=== PATIENT | female | born 1940 | race Caucasian/White ===

== ENCOUNTER → 2016-07-09 | Outpatient (CLI) | payer BC ==
[~2016-07-09] MED LIST: ASCA500 PO; CALC500C70 PO; CETI10TA84 PO; CHOL2000 PO; HYDR-4331 PO; HYDR-4380; HYDR-5688 PO; HYZ/10015 PO; LEVO75TA5 PO; LOSA1TAB38 PO; MULT-190 PO; MULT-506 PO; NORT10CA2 PO; POLY150C12 PO; POTATAB2 PO; PRLSR20 PO; VITAMIN B12 IM; [UNRECOGNIZED DRUG - CODE] EXT; [UNRECOGNIZED DRUG - CODE] SC; [UNRECOGNIZED DRUG - OTHER] PO
[2016-07-09 17:42] LABS: HEMATOCRIT 31.7 % (37-47)
[2016-07-09 18:01] LABS: TOTAL IRON BINDING CAPACITY 242 mcg/dl (250-450)
--- NOTE | 2016-07-14 11:00 | CODING QUERY MEDICAL NECESSITY ---
SUPPORTING DIAGNOSIS NEEDED A supporting diagnosis is required for the test/procedure performed on this patient in order for us to be reimbursed by the patient's insurance. Please provide a supporting diagnosis for the following test/procedure listed below next to the test name along with your signature. *If there is no additional diagnosis for this patient that would support the following test/procedure please document that below next to the test/procedure. Test(s)/Procedure(s) that require a supporting diagnosis: DOS 07/09 * Vitamin B12 DIAGNOSIS: Provider Signature: Date: Thank you Ashia Hanna Health Information Management Once completed, please kindly fax back to [phone] For questions please call [phone]
== END | disposition home or self-care (01) ==
LOC: C.LAB1850 16:37
PROVIDERS: ATTEND Internal Medicine
DX: K22.70 Barrett's esophagus without dysplasia (principal); D64.9 Anemia, unspecified

== ENCOUNTER → 2016-08-26 | Day surgery (SDC) | payer BC ==
[2016-08-19 11:02] VITALS: Ht 160 cm; Wt 74.1 kg
[~2016-08-26] VITALS: Ht 160 cm; Wt 74.1 kg
[~2016-08-26] MED LIST changes: +ATROPINE SULFATE 0.1 MG/ML 5ML SYR IV PRN; +BACITRACIN OINT 15 GM TUBE ONE; +BUPIVACAINE 0.5 % 5 MG/1 ML PF 10ML VIAL ONE; +CEFAZOLIN 1000MG/55 ML D5W IV SCH; +DEXAMETHASONE SOD INJ 4 MG/ML VIAL ONE; +EpHEDrine SULFATE INJ 50 MG/ML AMP IV PRN; +FENTANYL CITRATE INJ 50 MCG/1 ML 2 ML VIAL ONE; -HYDR-4331 PO; -HYDR-4380; -HYDR-5688 PO; +LACTATED RINGER'S 1000ML 1,000 ML IV SCH; +LIDOCAINE HCL 2% 2 ML VIAL (20MG/ML) ONE; +LIDOCAINE HCL 2% LOCAL 20 ML VIAL ONE; +MIDAZOLAM HCL 1 MG/ML 2ML VIAL ONE; +ONDANSETRON INJ 2 MG/ML 2 ML VIAL IV ONE; +ONDANSETRON INJ 2 MG/ML 2 ML VIAL ONE; +PROPOFOL IV EMULSION 10 MG/ML 20 ML VIAL IV ONE; +SODIUM CHLORIDE 0.9% 1000ML 1,000 ML IV SCH
--- NOTE | 2016-08-26 06:55 | History & Physical Bridge - SC ---
H&P Re-Evaluation Bridge Note: I have examined the patient, reviewed the History & Physical and in the interval since the performance of the History & Physical I have noted the following changes of clinical significance: No changes noted
--- NOTE | 2016-08-26 08:11 | [facility] Post Operative Brief Note ---
Immediate Operative Summary Operative Date Aug 26, 2016. Pre-Operative Diagnosis Right Carpal Tunnel Syndrome Post-Operative Diagnosis Same Procedure(s) Performed Right Carpal Tunnel Release Surgeon Dr. Smith Phototypesetter Operator Surgeon(s) Teodora Rebolledo PA-C Estimated Blood Loss Minimal Findings Right Carpal Tunnel Syndrome Specimens None Anesthesia Local with IV Sedation Complication(s) None Disposition Recovery Room / PACU
--- NOTE | 2016-08-26 08:11 | Discharge Instructions-SurgCtr ---
Discharge Instructions Date of Service Aug 26, 2016. Visit Reason for Visit: Right Carpal Tunnel Syndrome Discharge Discharge Diagnosis / Problem: right carpal tunnel syndrome Discharge Goals Goal(s): Decrease discomfort, Improve function, Therapeutic intervention Activity Recommendations Activity Limitations: per Instructions/Follow-up section limited use of right hand Anesthesia . Post Anesthesia Instructions: If you have had General Anesthesia or IV Sedation: * Do not drive today. * Resume driving when surgeon permits. * Do not make important decisions or sign legal documents today. * Call surgeon for: 1. Temperature elevations greater than 101 degrees F. 2. Uncontrollable pain. 3. Excessive bleeding. 4. Persistent nausea and vomiting. 5. Medication intolerance (nausea, vomiting or rash). * For nausea and vomiting use only clear liquids such as: tea, soda, bouillon until nausea subsides, then gradually increase diet as tolerated. * If you have any concerns or questions, call your surgeon's office. If physician is unavailable and it is an emergency, call 911 or go to the nearest emergency room. . Instructions / Follow-Up Instructions / Follow-Up MEDICATIONS: * Resume previous medications unless instructed otherwise by your surgeon. * Always take pain medication on a full stomach or with food to avoid upset stomach. * Do not drink alcohol or drive while taking narcotics. * Ibuprofen or Tylenol may be taken if narcotic not needed. SPECIAL CARE INSTRUCTIONS: __ None __ Keep extremity elevated and iced x 48 hours; apply ice 20-30 minutes 8-10 times/day. May remove at night. __ Sling __24 hrs/day __ Remove at night __ Shoulder Immobilizer __ 24 hrs/day __ Remove at night _x_ Dressing _x_ Maintain until seen in office, may shower with plastic over site __ Remove dressings in 24-48 hours and then may shower __ Cover incisions with band-aids after showering __ Do not remove steri-strips Call physician if chills or temperature rises above 102 degrees or pain unrelieved by prescribed pain medications at . follow up in 2 weeks . Diet Recommendations Home Diet: resume previous diet Procedures Procedures Performed: Right Carpal Tunnel Release Pending Studies Studies pending at discharge: no Medical Emergencies . Who to Call and When: Medical Emergencies: If at any time you feel your situation is an emergency, please call 911 immediately. . Non-Emergent Contact Non-Emergency issues call your: Surgeon . . "Provider Documentation" section prepared by Armin Rebolledo. .
[2016-08-26 08:29] VITALS: TEMP 36.4
--- NOTE | 2016-08-26 08:38 | Anesthesia Progress Nt - [facility] ---
Anesthesia Post Op Note Date & Time Aug 26, 2016 at 08:37 Vital Signs Pain Intensity: 0 Vital Signs Past 12 Hours Date Time Temp Pulse Resp B/P (MAP) Pulse Ox O2 Delivery O2 Flow Rate FiO2 08/26/16 08:29 36.4 89 16 87/79 (82) 97 Room Air 08/26/16 06:40 36.8 89 16 152/85 (107) 96 Room Air Notes Mental Status: alert / awake / arousable, participated in evaluation Pt Amnestic to Procedure: Yes Nausea / Vomiting: adequately controlled Pain: adequately controlled Airway Patency, RR, SpO2: stable & adequate BP & HR: stable & adequate Hydration State: stable & adequate Anesthetic Complications: no major complications apparent
[2016-08-26 08:44] VITALS: BP 127/71; PULSE 74; O2SAT 98
--- NOTE | 2016-08-26 13:18 | OPERATIVE REPORT ---
DATE OF OPERATION: 08/26/2016 SURGEON: Vamshi Smith MD GAS MASK ASSEMBLER: DEEPAK Caban PREOPERATIVE DIAGNOSIS: Right carpal tunnel syndrome. POSTOPERATIVE DIAGNOSIS: Same. PROCEDURE PERFORMED: Right carpal tunnel release. COMPLICATIONS: None. ESTIMATED BLOOD LOSS: Minimal. TOURNIQUET TIME: 6 minutes at 250 mmHg. ANESTHESIA: Local with IV sedation. OPERATIVE INDICATIONS: The patient is a 75-year-old female with multiple underlying medical comorbidities, who has had a several year history of pain, discomfort and numbness. She underwent a left carpal tunnel release and she had a good result from this. She continuously bothered by fairly classic carpal tunnel symptoms. She elected to proceed with right carpal tunnel release. OPERATIVE PROCEDURE: The patient was taken to the operating room, identified and placed on the operating table in the supine position. All contact areas were appropriately padded. IV antibiotics were provided by anesthesia team. A right forearm tourniquet was placed. Some IV sedation was provided. A 7 mL of 50:50 combination of 0.5% Marcaine and 2% lidocaine were then injected in and around the proposed incision site. The right hand was then prepped and draped in the usual sterile fashion. The right arm was elevated and exsanguinated with Esmarch and tourniquet was placed at 250 mmHg. A 2.5-3 cm incision was made in the palm just ulnar to the palmaris longus tendon. Blunt dissection was carried out through the subcutaneous tissues down to the level of the palmar fascia. The palmar fascia was incised longitudinally in line with skin incision. The underlying transverse carpal ligament was identified. It was transected distally with use of a Green blade knife. It was bluntly spread and found to be completely released. Attention was then drawn proximally. Blunt dissection was carried out above and below the ligament proximally. The ligament was transected for a minimum distance of 3 cm proximal to the wrist flexion crease. The ligament was bluntly spread and found to be completely released. The wound was irrigated with copious amounts of normal saline. The tourniquet was let down for a tourniquet time of 6 minutes. Hemostasis was assured using electrocautery. The wound was once again irrigated. The skin was closed with 5-0 nylon suture in a horizontal mattress fashion. The hand was then cleaned and dried and a sterile dressing with Xeroform, 4 x 4, sterile cast padding and Kevin bandage were applied. The patient then transferred to the recovery room in stable condition. The patient tolerated the procedure well with no complications. All needle and sponge counts were correct at the end of the operation. I attest to the content of the Intraoperative Record and any orders documented therein. Any exception s are noted below.
== END | disposition home or self-care (01) ==
LOC: X.SURG 06:13
PROVIDERS: ATTEND Orthopaedic Surgery Sports Medicine
DX: G56.01 Carpal tunnel syndrome, right upper limb (principal); I10 Essential (primary) hypertension; E03.9 Hypothyroidism, unspecified; Z96.653 Presence of artificial knee joint, bilateral; Z98.890 Other specified postprocedural states; Z85.828 Personal history of other malignant neoplasm of skin; Z87.891 Personal history of nicotine dependence; M19.90 Unspecified osteoarthritis, unspecified site

== ENCOUNTER → 2016-09-21 | Outpatient (CLI) | payer BC ==
[~2016-09-21] MED LIST changes: -ATROPINE SULFATE 0.1 MG/ML 5ML SYR IV PRN; -BACITRACIN OINT 15 GM TUBE ONE; -BUPIVACAINE 0.5 % 5 MG/1 ML PF 10ML VIAL ONE; -CEFAZOLIN 1000MG/55 ML D5W IV SCH; -DEXAMETHASONE SOD INJ 4 MG/ML VIAL ONE; -EpHEDrine SULFATE INJ 50 MG/ML AMP IV PRN; -FENTANYL CITRATE INJ 50 MCG/1 ML 2 ML VIAL ONE; -LACTATED RINGER'S 1000ML 1,000 ML IV SCH; -LIDOCAINE HCL 2% 2 ML VIAL (20MG/ML) ONE; -LIDOCAINE HCL 2% LOCAL 20 ML VIAL ONE; -MIDAZOLAM HCL 1 MG/ML 2ML VIAL ONE; -ONDANSETRON INJ 2 MG/ML 2 ML VIAL IV ONE; -ONDANSETRON INJ 2 MG/ML 2 ML VIAL ONE; -PROPOFOL IV EMULSION 10 MG/ML 20 ML VIAL IV ONE; -SODIUM CHLORIDE 0.9% 1000ML 1,000 ML IV SCH
--- NOTE | 2016-09-21 15:18 | MAMMOGRAPHY REPORT ---
BILATERAL DIGITAL SCREENING MAMMOGRAM WITH CAD: 09/21/2016 CLINICAL HISTORY: Routine screening. Patient has no complaints. TECHNIQUE: Bilateral CC and MLO views were obtained. Current study was also evaluated with a Compute r Aided Detection (CAD) system. COMPARISON: Comparison is made to exams dated: 09/19/2015 mammogram, 09/17/2014 mammogram, 09/14/2013 m ammogram, 09/13/2012 mammogram, 08/26/2011 mammogram, and 08/14/2010 mammogram - [facility] nter. BREAST COMPOSITION: There are scattered areas of fibroglandular density in both breasts. FINDINGS: There are benign rim calcifications in both breasts. No suspicious mass, architectural dis tortion or cluster of suspicious microcalcifications is seen. IMPRESSION: ACR BI-RADS CATEGORY 1: NEGATIVE There is no mammographic evidence of malignancy. A 1 year screening mammogram is recommended. The pa tient will receive written notification of the results. Approximately 10% of breast cancers are not detected with mammography. A negative mammographic report should not delay biopsy if a clinically suggestive mass is present. Pricilla Vann M.D. ay/:09/21/2016 13:49:03 Air Hammer Stripper: Minerva Bob RT(R)(M), [facility] letter sent: Normal 1/2 BI-RADS Code: ACR BI-RADS Category 1: Negative
== END | disposition home or self-care (01) ==
LOC: C.MAMM 10:38
PROVIDERS: ATTEND Obstetrics & Gynecology
DX: Z12.31 Encounter for screening mammogram for malignant neoplasm of breast (principal)

== ENCOUNTER → 2017-02-12 | Outpatient (CLI) | payer BC ==
[~2017-02-12] MED LIST changes: -NORT10CA2 PO
--- NOTE | 2017-02-22 11:20 | CODING QUERY MEDICAL NECESSITY ---
SUPPORTING DIAGNOSIS NEEDED Dr. Vargas, A supporting diagnosis is required for the test/procedure performed on this patient in order for us to be reimbursed by the patient's insurance. Please provide a supporting diagnosis for the following test/procedure listed below next to the test name along with your signature. *If there is no additional diagnosis for this patient that would support the following test/procedure please document that below next to the test/procedure. Test(s)/Procedure(s) that require a supporting diagnosis: * ([id number]) DXA BONE DENSITY, AXIAL DIAGNOSIS: DATE OF SERVICE: 02/12/17 Provider Signature: Date: Thank you Danny Franklin [facility] Information Management Once completed, please kindly fax back to [phone] For questions please call [phone]
== END | disposition home or self-care (01) ==
LOC: C.MAMM 13:49
PROVIDERS: ATTEND Family Medicine
DX: R89.1 Abnormal level of hormones in specimens from other organs, systems and tissues (principal); Z96.653 Presence of artificial knee joint, bilateral; Z96.7 Presence of other bone and tendon implants

== ENCOUNTER → 2017-03-03 | Outpatient (CLI) | payer BC ==
[2017-03-03 18:11] LABS: BLOOD UREA NITROGEN 47 mg/dl (7-18); BUN/CREATININE RATIO 22.9 (10-20); CALCIUM 8.9 mg/dl (8.5-10.1); CARBON DIOXIDE 26 mmol/L (21-32); CHLORIDE 109 mmol/L (98-107); CREATININE 2.06 mg/dl (0.60-1.20); GLUCOSE 147 mg/dl (70-99); POTASSIUM 3.8 mmol/L (3.5-5.1); SODIUM 139 mmol/L (136-145)
== END | disposition home or self-care (01) ==
LOC: C.LAB1850 16:53
PROVIDERS: ATTEND Physician Assistant
DX: D64.9 Anemia, unspecified (principal); I10 Essential (primary) hypertension

== ENCOUNTER → 2017-06-07 | Outpatient (CLI) | payer BC ==
[2017-06-07 17:57] LABS: BLOOD UREA NITROGEN 41 mg/dl (7-18); CREATININE 2.35 mg/dl (0.60-1.20)
== END | disposition home or self-care (01) ==
LOC: C.LAB1850 17:10
PROVIDERS: ATTEND Internal Medicine
DX: R51 Headache (principal)

== ENCOUNTER → 2017-06-15 | Outpatient (CLI) | payer BC ==
--- NOTE | 2017-06-15 11:10 | DIAGNOSTIC IMAGING REPORT ---
ULTRASOUND KIDNEYS AND BLADDER CLINICAL HISTORY: Renal insufficiency. COMPARISON STUDY: Renal ultrasound dated 12/12/[address] dated 03/01/2015. TECHNIQUE: Real-time, grayscale, and color flow sonography of the kidneys and bladder is performed. Images are reviewed in the transverse and longitudinal planes. FINDINGS: Kidneys: The right kidney demonstrates mild cortical atrophy and is normal in echotexture. The right kidney measures 10.8 cm in length. The left kidney is not identified and reported surgically absent. There is no hydronephrosis of the right kidney. No shadowing renal calculi are identified. There is no sonographic evidence of contour deforming renal mass lesion. No perinephric fluid is identified. Bladder: The bladder is normal in appearance. A right ureteral jet was seen. IMPRESSION: 1. The right kidney demonstrates mild cortical atrophy and is without hydronephrosis. 2. The left kidney is not identified and reported surgically absent. 3. The bladder was normal as visualized. Electronically signed by: Devante Temple M.D. 06/15/2017 11:09 AM Dictated Date/Time: 06/15/2017 11:07 AM
== END | disposition home or self-care (01) ==
LOC: C.ULTR 10:14
PROVIDERS: ATTEND Internal Medicine
DX: N28.9 Disorder of kidney and ureter, unspecified (principal)

== ENCOUNTER → 2017-07-28 | Outpatient (CLI) | payer BC ==
--- NOTE | 2017-07-28 09:32 | DIAGNOSTIC IMAGING REPORT ---
HEAD WITHOUT CONTRAST (CT) CLINICAL HISTORY: 76 years-old Female with R51 [id number]. Acute headache TECHNIQUE: Multiple axial CT images of the head were obtained without contrast. A dose lowering technique was utilized adhering to the principles of ALARA. CT DOSE: 614.27 mGy.cm COMPARISON: CT head 09/26/2012 FINDINGS: No acute intracranial hemorrhage, midline shift, intracranial mass, hydrocephalus, territorial ischemia or abnormal extra-axial collection. Mild atrophy. Moderate degree of ill-defined low-attenuation within the white matter of the cerebral hemispheres bilaterally suggests chronic microvascular ischemic changes. The calvarium is intact. The paranasal sinuses, mastoid air cells, and middle ear cavities are clear. IMPRESSION: No acute intracranial abnormality. The above report was generated using voice recognition software. It may contain grammatical, syntax or spelling errors. Electronically signed by: Jaime Dunaway M.D. 07/28/2017 9:31 AM Dictated Date/Time: 07/28/2017 9:29 AM
== END | disposition home or self-care (01) ==
LOC: C.CTS 08:55
PROVIDERS: ATTEND Internal Medicine
DX: R51 Headache (principal)

== ENCOUNTER → 2017-08-05 | Outpatient (CLI) | payer BC ==
--- NOTE | 2017-08-05 16:36 | DIAGNOSTIC IMAGING REPORT ---
MANDIBLE 5 VIEWS CLINICAL HISTORY: Jaw pain. No reported history of trauma. FINDINGS: 5 views of the mandible are correlated with facial bone CT dated 09/26/2012. The skeletal structures are osteopenic. There is no radiographic evidence of mandibular fracture. Numerous dental implants are in place. The temporomandibular joints appear maintained noting degenerative change, right greater than left. The visualized paranasal sinuses are clear. The imaged calvarium appears intact. IMPRESSION: 1. No acute bony abnormality is identified. 2. Osteopenia and degenerative change of the temporomandibular joints as above. Dictated: 08/05/2017 4:08 PM Transcribed: 08/05/2017 4:35 PM [facility] Electronically signed by: Devante Temple M.D. 08/05/2017 4:39 PM Dictated Date/Time: 08/05/2017 4:08 PM
== END | disposition home or self-care (01) ==
LOC: C.RAD1850 15:39
PROVIDERS: ATTEND Family Medicine
DX: R68.84 Jaw pain (principal); M85.88 Other specified disorders of bone density and structure, other site

== ENCOUNTER 2018-09-15 08:53 | Inpatient (IN) ==
--- NOTE | 2018-09-08 13:19 | PAT Medication Instructions ---
Medication Instructions Date of Service September 08, 2018 Home Medications ascorbic acid (vitamin C) 1 g PO DAILY cetirizine [Zyrtec] 10 mg PO DAILY cholecalciferol (vitamin D3) 1,000 unit PO QAM cyanocobalamin (vitamin B-12) 1,000 mcg PO .MONTHLY darbepoetin ortega in polysorbat [Aranesp (in polysorbate)] 200 mcg SUBCUT .HGB BELOW 12 estradiol [Menostar] 14 mcg TRANSDERMAL .WEEKLY hydrocodone-acetaminophen 1 tab PO Q6H PRN imatinib [Gleevec] 400 mg PO .DINNERTIME levothyroxine 50 mcg PO QAM losartan 100 mg PO .EVERY OTHER DAY losartan-hydrochlorothiazide 1 tab PO .EVERY OTHER MORNING multivitamin 1 cap PO HS omeprazole magnesium [Prilosec OTC] 20 mg PO QAM potassium citrate 1,080 mg PO BID [PreserVision AREDS-2] 1 tab PO BID Continue as directed darbepoetin ortega in polysorbat [Aranesp (in polysorbate)] 200 mcg SUBCUT .HGB BELOW 12 estradiol [Menostar] 14 mcg TRANSDERMAL .WEEKLY STOP taking 2 weeks before surgery If surgery is within 2 weeks, stop taking as soon as possible. [PreserVision AREDS-2] 1 tab PO BID DO NOT take the morning of surgery ascorbic acid (vitamin C) 1 g PO DAILY cetirizine [Zyrtec] 10 mg PO DAILY cholecalciferol (vitamin D3) 1,000 unit PO QAM cyanocobalamin (vitamin B-12) 1,000 mcg PO .MONTHLY losartan 100 mg PO .EVERY OTHER DAY losartan-hydrochlorothiazide 1 tab PO .EVERY OTHER MORNING omeprazole magnesium [Prilosec OTC] 20 mg PO QAM potassium citrate 1,080 mg PO BID Take morning of surgery With a small sip of water, OTHERWISE NOTHING TO EAT OR DRINK AFTER MIDNIGHT: hydrocodone-acetaminophen 1 tab PO Q6H PRN (if needed, may be taken up to four hours before surgery) levothyroxine 50 mcg PO QAM omeprazole magnesium [Prilosec OTC] 20 mg PO QAM Take evening before surgery hydrocodone-acetaminophen 1 tab PO Q6H PRN (if needed) imatinib [Gleevec] 400 mg PO .DINNERTIME multivitamin 1 cap PO HS potassium citrate 1,080 mg PO BID Other Notes If you have any questions please call us at [phone] or [phone] or [phone] or [phone]
--- NOTE | 2018-09-08 13:44 | Anesthesiology Consultation ---
Date of Service September 08, 2018 Assessment & Plan (1) Encounter for pre-operative examination: PCP clearance 09/12 = recommend optimizing her anemia. She is pending return call from nephrology and whether darbepoetin would help or increase her perioperative stroke risk. She has not had iron studies in over a year. She cannot tolerate oral iron, could consider IV iron if her stores were depleted. Will reach out to cancer care/nephrology to see if an additional dose of darbep oetin would be of benefit in anticipation of operative blood loss, and to ensure that this is safe from a thrombosis standpoint. Otherwise she is average risk for surgery, and recommend she continue with the surgery on . We will also order iron profile and ferritin. *Per verbal from nephrology, Dr. Sierra feels Arinesp not necessary prior to surgery. Chart Review Chart Review: Acceptable Risk for Surgery and Patient seen in Pre Admission Testing Teaching & Discussion Instructed NPO after midnight before surgery, except medications with 15 cc of water. Medication instructions provided according to the PAT guidelines. History Surgery Operation Date: 09/15/18 13:30 Proposed Procedures p Left Total Knee Revision versus Antibiotic Spacer - Vamshi Smith MD Height/Weight Height: 5 ft 2 in Weight: 74.7 kg Allergies Allergy/AdvReac Type Severity Reaction Status Date / Time banana Allergy Severe "ITCHY Verified 09/08/18 08:34 THROAT" povidone-iodine Allergy Severe BLISTERS Verified 09/08/18 08:34 coconut Allergy Intermediate Rash Verified 09/08/18 08:34 morphine Allergy Intermediate Swelling,VO Verified 09/08/18 08:34 MITING Penicillins Allergy Intermediate Rash Verified 09/08/18 08:34 (Tolerates Cephalosporins) sesame oil Allergy Intermediate Rash from Verified 09/08/18 08:34 sesame seeds Tetracyclines Allergy Intermediate Rash Verified 09/08/18 08:34 clindamycin Allergy Unknown RASH Verified 09/08/18 08:34 meperidine Allergy Unknown POS SKIN Verified 09/08/18 08:34 TEST adhesive AdvReac Severe BLISTERS Verified 09/08/18 08:34 aspirin AdvReac Intermediate Nosebleed/subconjunctival Verified 09/08/18 08:34 hemorrhage ketorolac AdvReac Unknown d/t kidney Verified 09/08/18 08:34 issue NSAIDS (Non-Steroidal AdvReac Unknown d/t kidney Verified 09/08/18 08:34 Anti-Inflamma Cantaloupe Allergy Unknown ITCHY Uncoded 09/08/18 08:34 THROAT Medications Home Medications Medication Instructions Recorded Confirmed Last Taken ascorbic acid (vitamin C) [Vitamin 1 g PO DAILY 09/08/18 09/08/18 Unknown C] cetirizine [Zyrtec] 10 mg PO DAILY 09/08/18 09/08/18 Unknown cholecalciferol (vitamin D3) 1,000 unit PO QAM 09/08/18 09/08/18 Unknown [Vitamin D3] cyanocobalamin (vitamin B-12) 1,000 mcg PO .MONTHLY 09/08/18 09/08/18 Unknown [Vitamin B-12] darbepoetin ortega in polysorbat 200 mcg SUBCUT .HGB BELOW 12 09/08/18 09/08/18 Unknown [Aranesp (in polysorbate)] estradiol [Menostar] 14 mcg TRANSDERMAL .WEEKLY 09/08/18 09/08/18 Unknown hydrocodone-acetaminophen 1 tab PO Q6H PRN 09/08/18 09/08/18 Unknown imatinib [Gleevec] 400 mg PO .DINNERTIME 09/08/18 09/08/18 Unknown levothyroxine 50 mcg PO QAM 09/08/18 09/08/18 Unknown losartan 100 mg PO .EVERY OTHER DAY 09/08/18 09/08/18 Unknown losartan-hydrochlorothiazide 1 tab PO .EVERY OTHER MORNING 09/08/18 09/08/18 Unknown multivitamin 1 cap PO HS 09/08/18 09/08/18 Unknown omeprazole magnesium [Prilosec OTC] 20 mg PO QAM 09/08/18 09/08/18 Unknown potassium citrate 1,080 mg PO BID 09/08/18 09/08/18 Unknown vit C,P-Al-elplq-lutein-zeaxan 1 tab PO BID 09/08/18 09/08/18 Unknown [PreserVision AREDS-2] Past Medical History Medical History Anemia Multifactorial, on Aranesp. 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 Physical Exam Vital Signs BP: 139/78 P: 86bpm SPO2: 96% RA T: 98.3 F R: 18 ENMT Mouth: + dental restorations (few implants and crowns ) and + small oral opening; no chipped teeth and no loose teeth Thyromental Distance: < 3.5 Finger Breadths (3) Mallampati Class: I Neck normal visual inspection and + short neck; neck extension not limited Respiratory normal respiratory effort Auscultation: lungs clear to auscultation bilaterally Cardiovascular Rate/Rhythm: regular rate and regular rhythm Heart Sounds: no murmur Vessels: no carotid bruit Extremities: + edema (Mild 1+ L ankle) Testing Laboratory Results Blood Type O Negative 09/08/18 13:57 Antibody Screen NEGATIVE 09/08/18 13:57 09/12/18 WBC: 4.36 H/H: 10.9/33.8 PLATELETS: 150 SODIUM: 139 POTASSIUM: 4.6 CHLORIDE: 105 CO2: 26 BUN: 27 CREATININE: 2.13 GLUCOSE: 106 PT: 13.2 PTT: 31 INR: 1.0 Electrocardiogram Date: 09/08/18 Findings: + NSR @ (73) Chest X-Ray Date: 09/08/18 FINDINGS: Cardiomediastinal and hilar silhouettes are within normal limits. There is no pneumothorax, pleural effusion, focal airspace consolidation or overt pulmonary edema. Degenerative changes of the shoulders and spine. Fusion hardware of the thoracic spine, partially imaged. Surgical clips project over the central abdomen. IMPRESSION: No acute process. Echocardiogram Date: 01/11/18 EF: 65-70% Left ventricular systolic function is normal. Grade 1 diastolic dysfunction. Aortic valve sclerosis mild, without significant aortic valvular stenosis. Right ventricular systolic pressure is normal. Stress Test Date: 06/02/12 Type: exercise Negative stress echocardiogram and EKG for myocardial ischemia at 105% MPHR. Appropriate BP response to exercise. Fatigue and dyspnea reported. No significant ectopy. Poor exercise tolerance. NYHA class II. 5 met workload.
--- NOTE | 2018-09-08 15:04 | XRay Report ---
XR chest Pre-admission PA/Lat HISTORY: 77 years-old Female pat preoperative exam. No acute chest complaints COMPARISON: CT abdomen and pelvis 03/09/2018, chest radiograph 02/19/2015, 09/26/2012 TECHNIQUE: PA and lateral views of the chest FINDINGS: Cardiomediastinal and hilar silhouettes are within normal limits. There is no pneumothorax, pleural e ffusion, focal airspace consolidation or overt pulmonary edema. Degenerative changes of the shoulders and spine. Fusion hardware of the thoracic spine, partially imaged. Surgical clips project over the central abdomen. IMPRESSION: No acute process. The above report was generated using voice recognition software. It may contain grammatical, syntax o r spelling errors. Electronically signed by: Jaime Dunaway M.D. 09/08/2018 3:02 PM
--- NOTE | 2018-09-10 13:49 | History and Physical Report ---
DATE OF ADMISSION: 09/15/2018 CHIEF COMPLAINT: Persistent left knee pain, discomfort, and instability. 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 She is status post a left knee replacement done in December of 2010. She really did well with this until just about a year ago she started having some pain. Her symptoms tend to wax and wane and she did respond to an injection or two, which seemed to take her pain away. Over the past 6-7 months, it has been progressive and gotten worse and unresponsive to conservative care including injection. She describes mostly medial pain. It is around the hernadez area. She limps when she walks. She has really tried to avoid going to using a cane. We have been treating her conservatively due to her medical issues and her desire to stay away from surgery, but her pain has become more disabling. She is having more and more difficulty walking. She limps with every step. The more she walks, the more it hurts. Pretty excruciating pain now. PAST MEDICAL HISTORY: Significant for, 1. CML. 2. High blood pressure. 3. Chronic anemia. 4. Hypothyroidism. 5. Back pain. 6. Gastroesophageal reflux disease. 7. Hiatal hernia. 8. Mild obesity. 9. Underlying kidney disease. PAST SURGICAL HISTORY: 1. Back surgery. 2. Bilateral knee replacements. 3. Carpal tunnel release. ALLERGIES: MULTIPLE. SHE DESCRIBES ALLERGIES TO NSAIDS DUE TO HER KIDNEY ISSUES, ASPIRIN, DEMEROL, CLINDAMYCIN, TETRACYCLINES, SESAME OIL, PENICILLIN, MORPHINE, COCONUT, IODINE. SOCIAL HISTORY: A 77-year-old female. 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 She is . Does not smoke. FAMILY HISTORY: Noncontributory. REVIEW OF SYSTEMS: Significant for the CML on chronic immunosuppressive medicines. Denies any chest pain or shortness of breath. No history of DVT or PE. No bleeding problems. PHYSICAL EXAMINATION: GENERAL: Reveals a pleasant elderly female. Looks to be in reasonably good health. HEENT: Benign. NECK: Supple. No lymphadenopathy. LUNGS: Clear to auscultation. HEART: Regular rate and rhythm. ABDOMEN: Soft, nontender, nondistended. EXTREMITIES: Grossly neurovascularly intact except as follows: Examination of the left knee reveals patient walks with a markedly antalgic gait. She limps on this left side significantly. Her incision is well healed. There is no real warmth. She has minimal knee effusion. Range of motion is near full extension to about 120 degrees of flexion. She does have pain with terminal flexion. She has pain with stressing in varus and valgus positions. X-RAYS: X-rays of the left knee reviewed. She has obvious loosening of the tibial tray with debonding from the cement needle and it tilted into varus. The femoral component looks to be well fixed. No signs of bone destruction. LABORATORY DATA: Knee aspirate. We did aspirate her knee and it showed 1000 white cells with 40% polys. There was not enough fluid to send off for Synovasure testing. We only got about 10 mL total. ASSESSMENT: A 77-year-old female now 8 years out from a left knee replacement with tibial loosening. This looks to be aseptic loosening and debonding from the cement. She does have a history of skin lesions as well as on immunosuppressive medicines, there is always a risk of infection, but clinically it does not appear that. The femoral component looks to be well fixed. PLAN: We talked about treatment. She has been pretty miserable for the past several months. It is only getting worse. We are going to take her to the operating room and do a left knee revision. I think we will just have to revise the tibial tray, but will be prepared to revise the whole knee if needed. The risks and benefits of this procedure were explained to the patient including but not limited to DVT, PE, , infection, neurological injury, vascular injury, bleeding problem, pain, limited range of motion, stiffness, failure to relieve her symptoms, incomplete relief of symptoms, need for further surgery in the future, etc. The patient understands and desires to proceed and informed consent was obtained. We will put some vancomycin in her cement. Of note, her sed rate preoperatively was 4, which is normal and C-reactive protein was 0.73, which is just slightly abnormal. The knee aspirate was as described above. The final culture to the knee aspirate had no growth. GIUSEPPE
[~2018-09-15 08:53] MED LIST changes: +ACETAMINOPHEN 500 MG TAB PO SCH; -ASCA500 PO; +BUPIVACAINE 0.5 % 5 MG/1 ML PF 10ML VIAL ONE; +BUPIVACAINE LIPOSOME/PF 266 MG, BUPIVACAINE/EPINEPHRINE 50 ML, SODIUM CHLORIDE 0.9% 30 ... INFIL SCH; -CALC500C70 PO; +CEFAZOLIN 2000MG 2,000 MG/15 ML SYR IV SCH; -CETI10TA84 PO; -CHOL2000 PO; +FAMOTIDINE 20 MG TAB PO SCH; +GABAPENTIN 300 MG PO SCH; -HYZ/10015 PO; -LEVO75TA5 PO; -LOSA1TAB38 PO; +LR 500ML BOLUS, THEN 15ML/HR IV SCH; +LR 60ML/HR IV SCH; +METOCLOPRAMIDE HCL 10 MG TABLET PO SCH; -MULT-190 PO; -MULT-506 PO; -POLY150C12 PO; -POTATAB2 PO; -PRLSR20 PO; +ROPIVACAINE 0.5% 5 MG/ML 30 ML VIAL ONE; +TRANEXAMIC ACID 1,000 MG **IV Intra-op IV SCH; -VITAMIN B12 IM; -[UNRECOGNIZED DRUG - CODE] EXT; -[UNRECOGNIZED DRUG - CODE] SC; -[UNRECOGNIZED DRUG - OTHER] PO
--- NOTE | 2018-09-15 09:06 | History & Physical Bridge Note ---
Date of Service September 15, 2018 History & Physical Bridge Note I have examined the patient, reviewed the History & Physical and in the interval since the performance of the History & Physical I have noted the following changes of clinical significance: no changes noted
[2018-09-15] MEDS ORDERED: fentaNYL citrate 100 MCG/2 ML VIAL ONE (10:07)
[2018-09-15] MEDS ORDERED: MIDAZOLAM HCL 1 MG/ML 2ML VIAL ONE (10:07)
[2018-09-15 10:30] LABS: Hematocrit (blood only) 35.9 % (37-47); Hemoglobin 11.7 g/dL (12.0-16.0); Mean Corpuscular Volume 103.8 fL (80-100); Mean Platelet Volume 10.6 fL (7.4-10.4); Platelet Count 164 K/uL (130-400); RDW Coefficient of Variation 15.9 % (11.5-14.5); RDW Standard Deviation 59.8 fL (36.4-46.3); Red Blood Count 3.46 M/uL (4.2-5.4); White Blood Count 4.25 K/uL (4.8-10.8)
[2018-09-15] MEDS ORDERED: SODIUM CHLORIDE 0.9% PF 50 ML VIAL ONE (10:33)
[2018-09-15] MEDS ORDERED: BACITRACIN INJ 50,000 UNIT VIAL ONE (10:33)
[2018-09-15] MEDS ORDERED: BUPIVACAINE LIPOSOME 1.3% 266 MG/20 ML VIAL ONE (10:33)
[2018-09-15] MEDS ORDERED: BUPIVACAINE 0.25% 30 ML VIAL ONE (10:33)
[2018-09-15] MEDS ORDERED: EPINEPHrine INJ 1 MG/ML AMP ONE (10:33)
[2018-09-15] MEDS ORDERED: VANCOMYCIN HCL 1000MG/20ML VIAL ONE (10:34)
[2018-09-15 10:37] LABS: Mean Corpuscular Hgb Conc 32.6 g/dL (32-36)
[2018-09-15] MEDS ORDERED: ONDANSETRON INJ 2 MG/ML 2 ML VIAL IV PRN (10:38)
[2018-09-15] MEDS ORDERED: ePHEDrine sulfate 50 MG/ML AMP IV PRN (10:38)
[2018-09-15] MEDS ORDERED: ATROPINE SULFATE 0.1 MG/ML 10ML SYR IV PRN (10:38)
[2018-09-15] MEDS ORDERED: fentaNYL citrate 100 MCG/2 ML VIAL IV PRN (10:38)
[2018-09-15] MEDS ORDERED: PROPOFOL IV EMULSION 10 MG/ML 20 ML VIAL IV ONE (11:10)
[2018-09-15] MEDS ORDERED: LIDOCAINE HCL 2% 2 ML VIAL/AMP(20MG/ML) INFIL ONE (11:10)
--- NOTE | 2018-09-15 13:02 | Post Operative Brief Note ---
Immediate Post Op Note v1 Date of Surgery September 15, 2018 Pre & Post Diagnosis Operation Date: 09/15/18 10:55 Pre-Op Diagnosis: Aseptic loosening tibial components Left Total Knee Arthroplasty Post-Op Diagnosis: Aseptic loosening tibial components Left Total Knee Arthroplasty Procedure Operation Date: 09/15/18 10:55 Actual Procedures p Left Total Knee Revision of Tibial Components(Left) - Vamshi Smith MD Surgeon Vamshi Smith MD [facility] Guide Kesha, PAC Estimated Blood Loss 50 Findings Consistent with Post-Op Diagnosis Fluids 2000 cc Specimens Synovium Left Knee Culture Left Knee Drains Callahan Catheter (A 16 Vietnamese callahan catheter was inserted by DEEPAK Way, without difficulty, clear yellow urine obtained, output to be monitored by Anesthesia. Hibiclens/water was used to prep for callahan due to patient's allergy to iodine.) Anesthesia Type Spinal MAC Complications none Disposition Disposition: Recovery Room
--- NOTE | 2018-09-15 13:35 | XRay Report ---
XR knee LT 2V routine CLINICAL HISTORY: Surgical Post Op COMPARISON: 2012 DISCUSSION: Evidence for a total right knee revision arthroplasty. Good contact between the prostheti c and underlying bone. Expected soft tissue postoperative change IMPRESSION: Anatomic alignment posttotal right knee revision arthroplasty. The above report was generated using voice recognition software. It may contain grammatical, syntax or spelling errors. Electronically signed by: Jayy Dodson M.D. 09/15/2018 1:34 PM
--- NOTE | 2018-09-15 13:38 | Anesthesiology Progress Note ---
Date of Service September 15, 2018 Anesthesia Post Procedure Vital Signs Vital Signs: Temp Pulse Pulse Resp BP Pulse Ox 09/15/18 13:30 97.9 F 86 20 91/49 L 98 09/15/18 13:20 88 22 109/42 L 100 09/15/18 13:10 95 H 19 132/45 L 100 09/15/18 13:04 97.9 F 101 H 18 97/50 L 99 09/15/18 09:56 98.1 F 84 20 156/62 H 94 Transfer of Care Handoff Completed per policy Notes Mental Status: alert / awake / arousable and participated in evaluation Patient Amnestic to Procedure: Yes Nausea / Vomiting: adequately controlled Pain: adequately controlled Airway Patency, RR, SpO2: stable & adequate BP & HR: stable & adequate Hydration State: stable & adequate Neuraxial Anesthesia: was administered and sensory block is resolving Anesthetic Complications: no major complications apparent and Pt Satisfied with anesthetic care
[2018-09-15] MEDS ORDERED: NALOXONE HCL 0.4 MG/1 ML VIAL/CARP IV PRN (14:26)
[2018-09-15] MEDS ORDERED: MAGNESIUM HYDROXIDE SUSP 30 ML UDC PO PRN (14:26)
[2018-09-15] MEDS ORDERED: NON-FORMULARY MEDICATION (Cyanocobalamin (Vitamin B-12) [Vitamin B-12] 1,000 MCG) PO SCH (14:26)
[2018-09-15] MEDS ORDERED: SODIUM CHLORIDE 0.9% 1000ML 1,000 ML IV SCH (14:26)
[2018-09-15] MEDS ORDERED: BISACODYL 10 MG SUPP PR PRN (14:26)
[2018-09-15] MEDS ORDERED: METOCLOPRAMIDE HCL INJ 5 MG/ML 2 ML VIAL IV PRN (14:26)
[2018-09-15] MEDS ORDERED: ALUMINUM/MAGNESIUM SUSP 30 ML UDC PO PRN (14:26)
[2018-09-15] MEDS ORDERED: HYDROmorphone HCL 2 MG TAB PO PRN (14:26)
[2018-09-15] MEDS ORDERED: NO NSAIDS SCH (14:26)
[2018-09-15] MEDS: LOSARTAN POTASSIUM 50 MG TAB PO SCH (16:29)
[2018-09-15] MEDS ORDERED: FERROUS GLUCONATE 324 MG TAB PO SCH (17:00)
[2018-09-15] MEDS: ACETAMINOPHEN 500 MG TAB PO SCH (17:02)
[2018-09-15] MEDS: OXYCODONE HCL IR 5 MG TAB (IMMEDIATE RELEASE) PO PRN ×2 (17:22→20:34)
[2018-09-15] MEDS: ASCORBIC ACID 500 MG TAB PO SCH (18:07)
[2018-09-15] MEDS ORDERED: TRANEXAMIC ACID 1,000 MG in 0.9 % SODIUM CHLORIDE 100 ML IV SCH (19:04)
[2018-09-15] MEDS: CEFAZOLIN 1000MG 1,000 MG/7.5 ML SYR IV SCH (19:42)
--- NOTE | 2018-09-15 19:49 | Progress Note ---
DATE: 09/15/2018 SUBJECTIVE: A 77-year-old white female postop from a left tibial tray revision for aseptic loosening. She is doing pretty well. Having some soreness, but manageable. No chest pain, no shortness of breath. Not feeling dizzy or lightheaded. OBJECTIVE: VITAL SIGNS: Temperature 36.2. Vital signs stable. GENERAL: Reveals a pleasant elderly female. She is sitting up in bed and talking to her family. LUNGS: Clear to auscultation. HEART: Has a regular rate and rhythm. ABDOMEN: Soft, nontender, nondistended. EXTREMITIES: Grossly neurovascularly intact except as follows: Examination of the left lower extremity reveals the leg to be well aligned. The dressing is clean, dry and intact. She can dorsiflex and plantarflex her foot appropriately. She can do a straight leg raise. She has good distal pulse. The toes are pink. X-RAYS: X-rays of the left knee in recovery room reviewed. It shows a cemented posterior stabilized total knee arthroplasty. The components look to be in good position. No signs of problems. ASSESSMENT: A 77-year-old white female postop from a revision of a tibial tray for aseptic loosening. There are no signs of infection. PLAN: 1. DVT prophylaxis including thigh-high TEDs, SCDs, and we are going to use a baby aspirin twice a day and see how she does with that. 2. PT/OT. Weight bear as tolerated. Left total knee protocol. 3. Pain control, doing well with current pain regimen. We are going to use Tylenol and oxycodone at her request. We will stop the Dilaudid. We will check her renal function, but unlikely to be able to use NSAIDs. 4. IV antibiotics x24 hours. 5. Disposition: Plan to discharge to home likely with some home health once adequately recovered.
[2018-09-15] MEDS: POTASSIUM CITRATE 10 MEQ TAB PO SCH (20:35)
[2018-09-15] MEDS: SENNA 8.6 MG TAB PO SCH (20:35)
[2018-09-15] MEDS: ASPIRIN 81 MG ECTAB PO SCH (20:35)
[2018-09-15] MEDS: DOCUSATE SODIUM 100 MG CAP PO SCH (20:35)
[2018-09-15] MEDS ORDERED: NON-FORMULARY MEDICATION (Multivitamin 1 CAP) PO SCH (21:00)
[2018-09-15] MEDS: ONDANSETRON INJ 2 MG/ML 2 ML VIAL IV PRN (23:43)
[2018-09-15] MEDS: HYDROmorphone INJ 0.5 MG/0.5 ML SYR IV PRN (23:48)
--- NOTE | 2018-09-16 01:45 | Operative Report ---
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 PROCEDURE PERFORMED: Left total knee replacement revision with revision of the tibial component. COMPLICATIONS: None. ESTIMATED BLOOD LOSS: 50 mL. FLUID REPLACEMENT: 2000 mL crystalloid fluid replacement. TOURNIQUET TIME: 85 minutes at 300 mmHg. ANESTHESIA: Spinal with adductor canal block. DRAINS: None. SPECIMENS: Left knee synovium sent for frozen section which revealed less than 5 polys per high power field. Also sent was fluid for stat Gram stain and aerobic and anaerobic culture, which revealed rare WBCs and no organisms. OPERATIVE INDICATIONS: The patient is a 77-year-old female who is status post a left knee replacement done back in 2010. She had done well with this knee until just about a year ago when she started having intermittent pain and discomfort. This was initially responsive to conservative care including some intermittent injections. Over the past 6 months, conservative care has failed. Her symptoms have become progressively worse. She has pain with any type of weightbearing. She had an extensive workup which showed no signs of infection. We did send the fluid off for analysis and culture was negative. We did not get enough fluid off her knee to send it for Synovasure testing. She had obvious loosening of the tibial tray on x-ray. She elected to proceed with surgical treatment. OPERATIVE FINDINGS: Operative findings revealed extensive synovitis of the knee with metallosis-type reaction. Fairly small knee effusion. The synovium was extensively stained. The femoral component appeared well fixed without any signs of loosening. The tibial component was grossly loose with a significant wear of the medial bone. The patella looked to be well fixed as well. She did have some tilt to her patella, but the patella otherwise tracked well. OPERATIVE IMPLANTS: Operative implants consisted of, 1. Biomet Vanguard size 67 tibial tray with an 80 x 12 mm offset stem with a 5-mm offset, small keel, and a 5-mm medial augment. 2. A 10-mm posterior stabilized polyethylene insert. OPERATIVE PROCEDURE: The patient was taken to the operating room, identified, and placed on the operating table in supine position. All contact areas were appropriately padded. IV antibiotics were provided by anesthesia team. A spinal anesthetic and adductor canal block had been provided in the holding area. A Daniel catheter was placed in sterile fashion. A left thigh tourniquet was then placed and the left lower extremity was then prepped and draped in usual sterile fashion. The left leg was elevated and exsanguinated with Esmarch and tourniquet was placed at 300 mmHg. An anterior approach to the left knee was then performed using a previous incision and extending it slightly proximally and distally. Sharp dissection was carried out through the subcutaneous tissue down to the level of the extensor mechanism. Medial parapatellar arthrotomy incision was made. Some subperiosteal dissection was carried out medially. The fat pad was resected from beneath the patella tendon. I did an extensive synovectomy of the suprapatellar pouch in the medial and lateral gutters. The synovium was sent off for analysis and there were less than 5 polys per high power field. The fluid was sent off for stat gram stain, which revealed rare WBCs and no organisms. It was sent for culture as well. In light of this, we elected to proceed with revision. The femoral component was tested with a bone tamp and found to be well fixed. The patella looked well fixed with minimal wear. The tibia was grossly loose, so we elected to proceed with revision of this. The tibia subluxated anteriorly. Great care was taken to protect the patellar tendon at it attachment at all times. With use of a stacked osteotome technique, the tibial tray was easily lifted out of the tibia. I then spent quite a bit of time removing the cement in the tibia. We then proceeded with preparing the tibia. The tibia initiating reamer was used to open the canal and then I reamed up to a size 14. I used this 14 reamer to make the cutoff. I made the cut to remove 2 mm of bone from the lateral side. This still left a defect medially. We elected to place a 10 mm augment. Proximal tibial cut was made. I then assessed this for offset and a 5-mm offset was selected. The proximal tibia was prepared for the tibial stem with a 5-mm offset. I then used the augment guide and attached it to the tibial tray and then cut for the tibial augment. The tibial tray was then assembled at the back table and placed in the tibia and fit quite nicely. It had good scratch fit of about 3-4 cm. I then removed all implants. The wound was irrigated extensively. I prepared the tibial bone and got rid of all fibrous tissue. A double batch of Palacos G cement was then mixed with 2 additional grams of vancomycin due to this revision status and this patient's immunocompromised state. I then placed the tibial component with the stem cementing the metaphysis in the surface only. All extraneous cement was removed. A 10 mm insert was placed and the knee was brought out into full extension until the cement hardened. A final cement check was then performed. The pericapsular tissues were injected with 100 mL of a combination of 20 mL of Exparel, 30 mL of normal saline, 50 mL of 0.25% Marcaine with epinephrine. The patient did receive 1 gram of tranexamic acid. The tourniquet was then let down for a final tourniquet time 85 minutes. Hemostasis was assured with the use of electrocautery. The wound was once again irrigated. The extensor mechanism was checked and the patella tracked well. There was still some tilt to the patella, but I expected this based on the preoperative alignment. The extensor mechanism was then closed with a combination of #1 PDS suture and #1 Vicryl suture in buried interrupted fashion. The skin was closed with skin keri. Leg was then cleaned and dried and a sterile dressing of Xeroform, 4 x 4, sterile cast padding and Kevin bandage were applied. The patient was then transferred to the recovery room in stable condition. The patient tolerated the procedure well with no complications. All needle and sponge counts were correct at the end of the operation. I attest to the content of the Intraoperative Record and any orders documented therein. Any exception s are noted below.
[2018-09-16] MEDS: OXYCODONE HCL IR 5 MG TAB (IMMEDIATE RELEASE) PO PRN ×5 (02:00→21:20)
[2018-09-16] MEDS: CEFAZOLIN 1000MG 1,000 MG/7.5 ML SYR IV SCH (03:15)
[2018-09-16] MEDS: ACETAMINOPHEN 500 MG TAB PO SCH ×3 (04:58→21:21)
[2018-09-16] MEDS: LEVOTHYROXINE SODIUM 50 MCG TABLET PO SCH (04:59)
[2018-09-16 05:49] LABS: Hemoglobin 10.1 g/dL (12.0-16.0); Mean Corpuscular Hgb Conc 33.7 g/dL (32-36); Mean Corpuscular Volume 102.7 fL (80-100); Mean Platelet Volume 9.5 fL (7.4-10.4); Platelet Count 118 K/uL (130-400); RDW Coefficient of Variation 15.2 % (11.5-14.5); RDW Standard Deviation 56.9 fL (36.4-46.3); Red Blood Count 2.92 M/uL (4.2-5.4)
[2018-09-16 06:20] LABS: BUN Creatinine Ratio 13.9 (10-20); Calcium 8.2 mg/dl (8.5-10.1); Est GFR (African American) 27.1; Est GFR (Non-African American) 23.3; Potassium 3.8 mmol/L (3.5-5.1)
[2018-09-16] MEDS ORDERED: OXYCODONE HCL IR 5 MG TAB (IMMEDIATE RELEASE) PO PRN (07:46)
[2018-09-16] MEDS: ASPIRIN 81 MG ECTAB PO SCH ×2 (07:47→20:31)
[2018-09-16] MEDS: DOCUSATE SODIUM 100 MG CAP PO SCH ×2 (07:47→20:32)
[2018-09-16] MEDS: MULTIVITAMIN TAB PO SCH (07:48)
[2018-09-16] MEDS: PANTOprazole 40 MG TAB PO SCH (07:48)
[2018-09-16] MEDS: CETIRIZINE HCL 10 MG TABLET PO SCH (07:48)
[2018-09-16] MEDS: POTASSIUM CITRATE 10 MEQ TAB PO SCH ×2 (07:48→20:33)
[2018-09-16] MEDS: CHOLECALCIFEROL 1,000 UNITS TAB PO SCH (07:49)
[2018-09-16] MEDS: ASCORBIC ACID 500 MG TAB PO SCH ×2 (07:49→16:41)
[2018-09-16] MEDS: CEROVITE ADV FORMULA TAB PO SCH (07:50)
--- NOTE | 2018-09-16 08:20 | Progress Note ---
DATE: 09/16/2018 SUBJECTIVE: A 77-year-old white female postop day 1 from left knee revision of the tibial tray for aseptic loosening. She is doing okay. Having quite a bit of pain. Otherwise, no chest pain or shortness of breath. Not feeling dizzy or lightheaded. OBJECTIVE: VITAL SIGNS: Temperature 36.7. Vital signs stable. GENERAL: Physical examination shows a pleasant elderly female. She is lying in bed, looks pretty comfortable. EXTREMITIES: Examination of the left leg reveals the leg to be well aligned. Dressing is clean, dry and intact. She can dorsiflex and plantarflex her foot appropriately. She is neurologically intact. LABORATORY DATA: Hemoglobin 10.1. Hematocrit is 30.0. Electrolytes are stable. Creatinine stable at 2.01. Culture results are pending. ASSESSMENT: A 77-year-old white female postop day 1 from a left total knee tibial tray revision for aseptic loosening, doing reasonably well. She was on narcotics preoperatively which is going to make pain control difficult. She also has trouble with lot of different pain medicines. She is anemic, but currently without symptoms. PLAN: 1. DVT prophylaxis including thigh-high TEDs, SCDs, and we are going to use a baby aspirin twice a day. 2. PT/OT. She can weightbear as tolerated. Left total knee protocol. 3. Pain control. We are going to continue with the oxycodone. Will use Tylenol as well. Unfortunately, she cannot take NSAIDs due to her renal function. We will put her on some Nucynta and see how this does. I did offer to get a pain clinic for pain service consult, but she prefers not. 4. Antibiotics p.o. Continue antibiotics for now. 5. Disposition: She is planning to be discharged home with some home health once adequately recovered.
[2018-09-16] MEDS: TAPENTADOL HCL ER 50 MG TABCR PO SCH ×2 (08:33→20:26)
[2018-09-16] MEDS: cephALEXin 250 MG CAP PO SCH ×3 (08:33→20:32)
[2018-09-16] MEDS ORDERED: LOSARTAN/HCTZ 50/12.5MG TAB PO SCH (09:00)
[2018-09-16] MEDS ORDERED: NON-FORMULARY MEDICATION (Ascorbic Acid (Vitamin C) [Vitamin C] 1 GM) PO SCH (09:00)
--- NOTE | 2018-09-16 10:39 | Anesthesiology Progress Note ---
Date of Service September 16, 2018 Anesthesia Post Procedure Vital Signs Vital Signs: Temp Pulse Pulse Resp BP Pulse Ox 09/16/18 07:21 36.7 C 109 H 20 153/74 H 96 09/16/18 05:30 109 H 159/75 H 09/16/18 03:33 36.3 C L 104 H 16 151/76 H 92 09/15/18 23:38 36.3 C L 92 H 16 144/84 H 94 09/15/18 19:20 36.3 C L 82 18 137/71 97 09/15/18 17:16 36.2 C L 88 17 146/73 H 97 09/15/18 16:09 36.2 C L 75 18 137/72 100 09/15/18 15:09 36.4 C L 79 18 119/67 99 09/15/18 14:33 76 18 124/66 98 09/15/18 14:10 36.5 C 83 16 120/66 09/15/18 13:50 85 19 113/58 L 95 09/15/18 13:40 86 21 108/59 L 95 09/15/18 13:30 36.6 C 86 20 91/49 L 98 09/15/18 13:20 88 22 109/42 L 100 09/15/18 13:10 95 H 19 132/45 L 100 09/15/18 13:04 36.6 C 101 H 18 97/50 L 99 Pain Intensity Left Knee: Pain Intensity: 8 Notes Mental Status: alert / awake / arousable and participated in evaluation Patient Amnestic to Procedure: Yes Nausea / Vomiting: adequately controlled Pain: adequately controlled Airway Patency, RR, SpO2: stable & adequate BP & HR: stable & adequate Hydration State: stable & adequate Anesthetic Complications: no major complications apparent and Pt Satisfied with anesthetic care
[2018-09-16] MEDS: ONDANSETRON INJ 2 MG/ML 2 ML VIAL IV PRN (10:43)
[2018-09-16] MEDS: HYDROmorphone INJ 0.5 MG/0.5 ML SYR IV PRN (10:43)
[2018-09-16 11:27] LABS: C-Reactive Protein High Sens. 5.4 MG/L (0.0-3.0)
[2018-09-16] MEDS ORDERED: IMATINIB MESYLATE PO SCH (18:00)
[2018-09-16] MEDS: SENNA 8.6 MG TAB PO SCH (20:31)
[2018-09-17] MEDS: ACETAMINOPHEN 500 MG TAB PO SCH (06:02)
[2018-09-17] MEDS: LEVOTHYROXINE SODIUM 50 MCG TABLET PO SCH (06:03)
[2018-09-17] MEDS: OXYCODONE HCL IR 5 MG TAB (IMMEDIATE RELEASE) PO PRN (07:27)
--- NOTE | 2018-09-17 08:46 | Progress Note ---
DATE: 09/17/2018 SUBJECTIVE: A 77-year-old white female postop day 2 from a left revision of knee for tibial loosening. She is doing pretty well. Had a little confusion yesterday possibly related to the Nucynta. Pain is pretty well controlled on the oxycodone. No chest pain or shortness of breath. Not feeling dizzy or lightheaded. OBJECTIVE: VITAL SIGNS: Temperature 36.6. Vital signs are stable. PHYSICAL EXAMINATION: GENERAL: Reveals a pleasant elderly female. She is sitting up in her bedside and looks reasonably comfortable. EXTREMITIES: Examination of the left leg reveals the dressing and incision to be clean, dry and intact. Her calf is soft and supple. Some mild swelling. She is neurologically intact. LABORATORIES: Cultures are no growth to date. ASSESSMENT: A 77-year-old white female postoperative day 2 from a left revision knee replacement for tibial loosening. She is doing okay. A little bit confusion yesterday, maybe related to Nucynta. We will stop the Nucynta and stick with Tylenol and oxycodone. Unfortunately, she cannot take NSAIDS. PLAN: 1. DVT prophylaxis including thigh-high TEDs, SCDs, and aspirin twice a day for the next 4 weeks. 2. PT/OT. She can weightbear as tolerated. 3. Pain control. We are going to stop the Nucynta. We will use Tylenol around the clock and then oxycodone as needed. 4. Disposition: She is planning to be discharged to home with some home health. 5. Anemia. She has some low-level anemia but is asymptomatic.
[2018-09-17] MEDS: DOCUSATE SODIUM 100 MG CAP PO SCH (08:54)
[2018-09-17] MEDS: ASCORBIC ACID 500 MG TAB PO SCH (08:54)
[2018-09-17] MEDS: MULTIVITAMIN TAB PO SCH (08:54)
[2018-09-17] MEDS: LOSARTAN POTASSIUM 50 MG TAB PO SCH (08:55)
[2018-09-17] MEDS: cephALEXin 250 MG CAP PO SCH (08:55)
[2018-09-17] MEDS: ASPIRIN 81 MG ECTAB PO SCH (08:55)
[2018-09-17] MEDS: PANTOprazole 40 MG TAB PO SCH (08:56)
[2018-09-17] MEDS: CEROVITE ADV FORMULA TAB PO SCH (08:56)
[2018-09-17] MEDS: POTASSIUM CITRATE 10 MEQ TAB PO SCH (08:56)
[2018-09-17] MEDS: CETIRIZINE HCL 10 MG TABLET PO SCH (08:57)
[2018-09-17] MEDS: CHOLECALCIFEROL 1,000 UNITS TAB PO SCH (08:57)
--- NOTE | 2018-09-22 02:00 | Discharge Summary ---
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 PROCEDURE PERFORMED: Left total knee revision with revision of the tibial component. SECONDARY DIAGNOSES: Chronic myelogenous leukemia, hypertension, chronic anemia, hypothyroidism, back pain, gastroesophageal reflux disease, hiatal hernia, mild obesity, underlying kidney disease. CONSULTS: None obtained. HISTORY AND PHYSICAL EXAMINATION: Well documented in patient's chart. HOSPITAL COURSE: The patient was admitted on 09/15/2018, underwent revision arthroplasty of tibial component. She tolerated the procedure well. There were no complications. She was transferred to the PACU postoperatively and later to the orthopedic floor for further care. She was given Ancef for antibiotic prophylaxis, DOUG stockings, SCDs and aspirin for DVT prophylaxis. Hemoglobin, hematocrit and vital signs were monitored during hospital stay and remained stable. She had some postoperative anemia, did not require any blood transfusions. Intraoperative cultures showed no growth. There were no complications during her hospital stay. By postoperative day #2, she was tolerating a regular diet, pain was controlled with oral pain medicine. She was participating in physical therapy. Postop day #2, she was discharged home, set up with home health services. She was given printed discharge instructions as well as new prescriptions for Extra Strength Tylenol, aspirin, cefadroxil, Zofran and oxycodone. Continue her home medications with the exception of [place] which she was told to stop. Continue physical therapy, weightbearing as tolerated, DOUG stockings. Follow up approximately 2 weeks postop or sooner if any problems or concerns.
== END 2018-09-17 10:50 | disposition home health service (06) | DRG 467 ==
LOC: ASU 08:53 → 3E 13:07

== ENCOUNTER 2019-01-20 05:02 | Inpatient (IN) ==
--- NOTE | 2019-01-12 12:24 | Anesthesiology Consultation ---
Date of Service January 12, 2019 Total knee replacement August 2018 under SAB/PNB/MAC uneventful. Assessment & Plan (1) Encounter for pre-operative examination: Chart Review Chart Review: Acceptable Risk for Surgery and Patient NOT seen in Pre Admission Testing Consults Requested none History Surgery Operation Date: 02/07/19 12:30 Proposed Procedures p Right Total Hip Replacement - Vamshi Smith MD Height/Weight Height: 5 ft 2 in Weight: 71.214 kg Allergies Allergy/AdvReac Type Severity Reaction Status Date / Time banana Allergy Severe "ITCHY Verified 01/10/19 13:56 THROAT" povidone-iodine Allergy Severe BLISTERS Verified 01/10/19 13:56 coconut Allergy Intermediate Rash Verified 01/10/19 13:56 morphine Allergy Intermediate Swelling,VO Verified 01/10/19 13:56 MITING Penicillins Allergy Intermediate Rash Verified 01/10/19 13:56 (Tolerates Cephalosporins) sesame oil Allergy Intermediate Rash from Verified 01/10/19 13:56 sesame seeds Tetracyclines Allergy Intermediate Rash Verified 01/10/19 13:56 clindamycin Allergy Unknown RASH Verified 01/10/19 13:56 meperidine Allergy Unknown POS SKIN Verified 01/10/19 13:56 TEST adhesive AdvReac Severe BLISTERS Verified 01/10/19 13:56 aspirin AdvReac Intermediate Nosebleed/subconjunctival Verified 01/10/19 13:56 hemorrhage hydromorphone AdvReac Intermediate Vomiting Verified 01/10/19 13:56 ketorolac AdvReac Unknown d/t kidney Verified 01/10/19 13:56 issue NSAIDS (Non-Steroidal AdvReac Unknown d/t kidney Verified 01/10/19 13:56 Anti-Inflamma Cantaloupe Allergy Unknown ITCHY Uncoded 01/10/19 13:56 THROAT Medications Home Medications Medication Instructions Recorded Confirmed Last Taken PreserVision AREDS-2 1 tab PO BID 09/08/18 01/10/19 09/12/18 Prilosec OTC 20 mg PO QAM 09/08/18 01/10/19 09/15/18 06:30 ascorbic acid (vitamin C) [Vitamin 1 g PO QAM 09/08/18 01/10/19 09/14/18 08:00 C] cetirizine [Zyrtec] 10 mg PO QAM 09/08/18 01/10/19 09/14/18 08:00 cholecalciferol (vitamin D3) 1,000 unit PO QPM 09/08/18 01/10/19 09/14/18 19:00 [Vitamin D3] levothyroxine 50 mcg PO QAM 09/08/18 01/10/19 09/15/18 06:30 multivitamin 1 cap PO HS 09/08/18 01/10/19 09/14/18 20:00 potassium citrate ER 10 mEq (1,080 1,080 mg PO BID #180 tab 11/01/18 01/10/19 Unknown mg) tablet,extended release losartan 100 1 tab PO Q OTHER DAY 11/02/18 01/10/19 Unknown mg-hydrochlorothiazide 25 mg tablet cyanocobalamin (vit B-12) 1,000 1,000 mcg PO MONTHLY tab 11/15/18 01/10/19 Unknown mcg tablet darbepoetin ortega 200 mcg/mL in 200 mcg SUBCUT .COMPLEX 11/15/18 01/10/19 Unknown polysorbate injection estradiol 14 mcg/24 hr weekly 14 mcg TRANSDERMAL WEEKLY ea 11/15/18 01/10/19 Unknown transdermal patch hydrocodone 5 mg-acetaminophen 300 2 tab PO Q4H PRN 11/15/18 01/10/19 Unknown mg tablet imatinib 400 mg tablet 400 mg PO QPM tab 11/15/18 01/10/19 Unknown losartan 100 mg tablet 100 mg PO Q OTHER DAY 11/15/18 01/10/19 Unknown syringe with needle, safety 3 mL #3 ea 11/30/18 01/10/19 Unknown 25 gauge x 1" syringe with needle, safety 3 mL #10 ea 11/30/18 01/10/19 Unknown 25 gauge x 5/8" darbepoetin otrega in polysorbat 200 mcg SUBCUT UD 01/10/19 01/10/19 Unknown [Aranesp (in polysorbate)] hydrocodone-acetaminophen 1 tab PO Q6H PRN 01/10/19 01/10/19 Unknown tramadol 50 mg PO Q6H PRN 01/10/19 01/10/19 Unknown Past Medical History Medical History Barretts esophagus (Acute) Donor of kidney for transplant (Acute) Hypercholesterolemia (Acute) Low back pain (Acute 09/26/12) Maintenance chemotherapy (Acute) Nephrolithiasis (Acute) Obesity (Acute 09/26/12) Polyp, colonic (Acute) Sciatica (Acute) Anemia Multifactorial, on Aranesp. 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 History of revision of total replacement of left knee joint 09/15/18 [facility] History of total right knee replacement (TKR) Social History Smoking Status: Former smoker tobacco type: cigarettes Do You Dip or Chew Tobacco: No Smoking End Date: 1991 Hx Alcohol Use: Yes Alcohol type: wine alcohol intake frequency: a few times a week Hx Substance Use: No substance use type: does not use Testing Electrocardiogram Date: 09/08/18 Findings: + NSR @ (72) Chest X-Ray Date: 09/08/18 Findings: + NAD Echocardiogram Date: 01/11/18 EF: 65 LV Function: normal (grade I DD) Valvular Disease: + no significant valvular disease Stress Test Date: 06/12/18 Type: exercise Findings: + WNL 5 METS exercise capacity
--- NOTE | 2019-01-16 20:24 | History and Physical Report ---
DATE OF ADMISSION: 01/20/2019 CHIEF COMPLAINT: Right hip pain and discomfort. HISTORY OF PRESENT ILLNESS: A 78-year-old white female who is now 4 months out from a revision of her left knee replacement for aseptic loosening. About 3 months ago, she started developing increased pain and discomfort in her right hip. No injury. She describes mostly groin pain. She has resorted to using a cane as a result. She has been pretty miserable with this. She cannot take NSAIDs due to some underlying kidney disease and she only has one residual kidney. She takes Tylenol with minimal relief. She has resorted to using narcotics to control her pain. She would like to have her right hip fixed if possible. Of note, the patient has a history of CML in the past, which is managed by her oncologist. PAST MEDICAL HISTORY: 1. Hypertension. 2. CML. 3. Arthritis. 4. Gastroesophageal reflux disease. 5. Hiatal hernia. 6. Mild obesity. 7. Chronic renal insufficiency with 1 residual kidney due to a donated kidney. PAST SURGICAL HISTORY: Includes: 1. Back surgery. 2. Bilateral knee replacements, left one done in 2010, right one done in 2012. 3. Left total knee revision done on 09/15/2018. 4. Carpal tunnel release. ALLERGIES: MORPHINE, NUCYNTA, MELATONIN, BACTRIM, BETADINE, CIPROFLOXACIN, NSAIDS, CLINDAMYCIN, GABAPENTIN, PENICILLIN WHICH CAUSES A RASH, FAMOTIDINE, PROCRIT, AND TETRACYCLINE. She apparently has done okay with Dilaudid as far as pain control. HER REACTION TO PENICILLIN IS JUST A RASH. CURRENT MEDICINES: Include: 1. Aranesp for anemia. 2. Calcium. 3. Cyanocobalamin. 4. Gleevec once a day. 5. Levothyroxine 75 mcg daily. 6. Losartan/hydrochlorothiazide 100/25 once a day. 7. Transdermal patch. 8. Multivitamin. 9. Iron. 10. Potassium 10 mEq a day. 11. Unspecified med - twice a day. 12. PreserVision. 13. Prilosec. 14. Vitamin C. 15. Vitamin D3. 16. Zyrtec. SOCIAL HISTORY: A 78-year-old white female, patient is . Does not smoke. FAMILY HISTORY: Noncontributory. REVIEW OF SYSTEMS: Significant for CLL as well as some chronic renal insufficiency, followed by Dr. Sierra. She is on some chronic immunosuppressive meds. Denies any chest pain or shortness of breath. No history of DVT or PE. PHYSICAL EXAMINATION: GENERAL: Shows a pleasant, somewhat frail elderly female. HEENT: Benign. NECK: Supple, no lymphadenopathy. LUNGS: Clear to auscultation. HEART: Regular rate and rhythm. ABDOMEN: Soft, nontender, nondistended. EXTREMITIES: Grossly neurovascularly intact except as follows: Examination of the right hip reveals patient walks using the cane. Leg lengths appear pretty equal. She does have pain with any type of hip motion. She has pain with internal rotation, particularly. No warmth or swelling. No knee effusion. She is neurologically intact. X-RAYS: X-rays of the right hip were reviewed. It shows advanced right hip DJD. She has got complete loss of her superior joint space. This has changed markedly over the past 3 years. Not a lot of osteophyte formation. ASSESSMENT: A 78-year-old white female 4 months out from a revision left total knee replacement with a 3-month history of increasing right hip pain, discomfort, and progressive hip arthritis. She is limited in her medicines. She is pretty miserable with this. She would like to have her right hip fixed. PLAN: We will take her to the operating room and do right total hip replacement. The risks and benefits of this procedure were explained to the patient and include but not limited to DVT, PE, , infection, neurological injury, vascular injury, bleeding problem, pain, limited range of motion, stiffness, failure to relieve her symptoms, incomplete relief of symptoms, leg length inequality, nerve palsy, dislocation, need for blood transfusion, etc. The patient understands and desires to proceed. Informed consent was obtained. We will have a cemented stem available in case her bone density does not tolerate the uncemented stem, but it looks pretty good on x-ray. We will do all we can to stabilize her hip with a large head due to her back surgery and increased risk for dislocation. As far as pain control, we will use Tylenol and likely some limited Dilaudid. She cannot take NSAIDs. We will use a baby aspirin once a day for DVT prophylaxis. She is hoping to be discharged home using [facility] home health program. [facility]
[2019-01-20] MEDS ORDERED: SODIUM CHLORIDE 0.9% 1000ML IV SCH (06:00)
[2019-01-20] MEDS ORDERED: METOCLOPRAMIDE HCL 10 MG TABLET PO SCH (06:00)
[2019-01-20] MEDS ORDERED: FAMOTIDINE 20 MG TAB PO SCH (06:00)
[2019-01-20] MEDS ORDERED: LR 60ML/HR IV SCH (06:00)
[2019-01-20] MEDS ORDERED: TRANEXAMIC ACID 1,000 MG **IV Pre-op IV SCH (06:00)
[2019-01-20] MEDS ORDERED: GABAPENTIN 300 MG CAP PO SCH (06:00)
[2019-01-20] MEDS ORDERED: ACETAMINOPHEN 500 MG TAB PO SCH (06:00)
[2019-01-20] MEDS ORDERED: CEFAZOLIN 2000MG 2,000 MG/15 ML SYR IV SCH (06:00)
[2019-01-20] MEDS ORDERED: LR 15ML/HR IV SCH (06:00)
[2019-01-20] MEDS ORDERED: MIDAZOLAM HCL 1 MG/ML 2ML VIAL ONE ×2 (06:22→06:23)
[2019-01-20] MEDS ORDERED: MoRPHine SULFATE PF 1 MG/ML 10 ML AMP/VIAL ONE (06:23)
[2019-01-20] MEDS ORDERED: fentaNYL citrate 100 MCG/2 ML VIAL ONE (06:23)
[2019-01-20] MEDS ORDERED: BUPIVACAINE 0.5 % 5 MG/1 ML PF 10ML VIAL ONE (06:23)
[2019-01-20] MEDS ORDERED: BACITRACIN INJ 50,000 UNIT VIAL ONE (06:35)
[2019-01-20] MEDS ORDERED: BUPIVACAINE/EPINEPHRINE 0.5% MPF 1:200,000 30 ML VIAL ONE (06:39)
--- NOTE | 2019-01-20 06:50 | History & Physical Bridge Note ---
Date of Service January 20, 2019 History & Physical Bridge Note I have examined the patient, reviewed the History & Physical and in the interval since the performance of the History & Physical I have noted the following changes of clinical significance: no changes noted
[2019-01-20] MEDS ORDERED: fentaNYL citrate 100 MCG/2 ML VIAL IV PRN (06:53)
[2019-01-20] MEDS ORDERED: ATROPINE SULFATE 0.1 MG/ML 10ML SYR IV PRN (06:53)
[2019-01-20] MEDS ORDERED: ONDANSETRON INJ 2 MG/ML 2 ML VIAL IV PRN ×2 (06:53→10:16)
[2019-01-20] MEDS ORDERED: ePHEDrine sulfate 50 MG/ML AMP IV PRN (06:53)
[2019-01-20] MEDS ORDERED: PROPOFOL IV EMULSION 10 MG/ML 20 ML VIAL IV ONE ×2 (07:13→07:28)
[2019-01-20] MEDS ORDERED: PHENYLEPHRINE HCL 10 MG/ML VIAL ONE (07:27)
[2019-01-20] MEDS ORDERED: BUPIVACAINE/EPINEPHRINE 0.5% MPF 1:200,000 10 ML VIAL INFIL PRN (07:52)
--- NOTE | 2019-01-20 08:33 | Post Operative Brief Note ---
PG Immediate Post Op with CF Date of Surgery January 20, 2019 Pre & Post Diagnosis Operation Date: 01/20/19 07:00 Pre-Op Diagnosis: Right Hip Advanced Degenerative Joint Disease Post-Op Diagnosis: Right Hip Advanced Degenerative Joint Disease I identified the patient and participated in the time-out.: Yes Procedure Operation Date: 01/20/19 07:00 Actual Procedures p Right Total Hip Arthroplasty--Uncemented(Right) - Vamshi Smith MD Surgeon Vamshi Smith MD Electrolysis Investigator Kesha, PAC Estimated Blood Loss 300 Findings Consistent with Post-Op Diagnosis Fluids 700 cc Specimens Specimen Description: A. Right Femoral Head Drains Callahan Catheter (A 16 Persian callahan catheter was inserted by DEEPAK Way, without difficulty, clear yellow urine obtained, output to be monitored by Anesthesia.) Anesthesia Type Spinal MAC Complications none Disposition Accompanied Patient To Recovery: Yes Disposition: Recovery Room
--- NOTE | 2019-01-20 09:11 | XRay Report ---
AP PELVIS, CROSSTABLE LATERAL RIGHT HIP History: Right total hip arthroplasty. Degenerative arthritis. Postop. FINDINGS: The patient is status post a right total hip arthroplasty. The hardware is intact. No fract ure or dislocation. Skin keri are in place. IMPRESSION: Right total hip arthroplasty. No evidence for hardware complication Electronically signed by: Teddy Gibbons M.D. 01/20/2019 9:10 AM
--- NOTE | 2019-01-20 09:41 | Anesthesiology Progress Note ---
Date of Service January 20, 2019 Anesthesia Post Procedure Vital Signs Vital Signs: Temp Pulse Pulse Resp BP Pulse Ox 01/20/19 09:25 98 H 13 120/64 92 01/20/19 09:15 102 H 25 H 123/61 95 01/20/19 09:05 100 H 22 114/62 96 01/20/19 08:55 100 H 23 106/65 92 01/20/19 08:45 105 H 20 139/62 96 01/20/19 08:34 97.9 F 109 H 13 117/62 97 01/20/19 05:42 97.7 F 89 18 154/89 H 95 Pain Intensity Right Hip: Pain Intensity: 5 Transfer of Care Handoff Completed per policy Notes Mental Status: alert / awake / arousable and participated in evaluation Patient Amnestic to Procedure: Yes Nausea / Vomiting: adequately controlled Pain: adequately controlled Airway Patency, RR, SpO2: stable & adequate BP & HR: stable & adequate Hydration State: stable & adequate Neuraxial Anesthesia: was administered and sensory block is resolving Anesthetic Complications: no major complications apparent and Pt Satisfied with anesthetic care
[2019-01-20] MEDS ORDERED: HYDROCODONE/ACETAMOPHEN 5/325MG TAB PO PRN (10:16)
[2019-01-20] MEDS ORDERED: NON-FORMULARY MEDICATION (Vit C,E-Zn-Coppr-Lutein-Zeaxan [Preservision Areds-2] 1 TAB) PO SCH (10:16)
[2019-01-20] MEDS ORDERED: HYDROmorphone INJ 0.5 MG/0.5 ML SYR IV PRN (10:16)
[2019-01-20] MEDS ORDERED: NO NSAIDS SCH (10:16)
[2019-01-20] MEDS ORDERED: MAGNESIUM HYDROXIDE SUSP 30 ML UDC PO PRN (10:16)
[2019-01-20] MEDS ORDERED: NALOXONE HCL 0.4 MG/1 ML VIAL/CARP IV PRN (10:16)
[2019-01-20] MEDS ORDERED: NON-FORMULARY MEDICATION (Ascorbic Acid (Vitamin C) [Vitamin C] 1 GM) PO SCH (10:16)
[2019-01-20] MEDS ORDERED: ALUMINUM/MAGNESIUM SUSP 30 ML UDC PO PRN (10:16)
[2019-01-20] MEDS ORDERED: [UNRECOGNIZED DRUG - SUPPLY] SCH (10:16)
[2019-01-20] MEDS ORDERED: BISACODYL 10 MG SUPP PR PRN (10:16)
[2019-01-20] MEDS ORDERED: METOCLOPRAMIDE HCL INJ 5 MG/ML 2 ML VIAL IV PRN (10:16)
[2019-01-20] MEDS ORDERED: [UNRECOGNIZED DRUG - SUPPLY] SCH (10:16)
[2019-01-20] MEDS: SODIUM CHLORIDE 0.9% 1000ML 1,000 ML IV SCH ×2 (10:43→20:15)
[2019-01-20] MEDS: DOCUSATE SODIUM 100 MG CAP PO SCH ×2 (11:15→20:15)
[2019-01-20] MEDS: MULTIVITAMIN TAB PO SCH (11:15)
[2019-01-20] MEDS: CETIRIZINE HCL 10 MG TABLET PO SCH (11:15)
[2019-01-20] MEDS: ASPIRIN 81 MG ECTAB PO SCH (11:15)
--- NOTE | 2019-01-20 11:34 | Operative Report ---
DATE OF OPERATION: 01/20/2019 SURGEON: Vamshi Smith MD DRAGLINE ENGINEER: DEEPAK Caban PREOPERATIVE DIAGNOSIS: Right hip degenerative joint disease. POSTOPERATIVE DIAGNOSIS: Right hip degenerative joint disease. PROCEDURE PERFORMED: Right uncemented ceramic on highly cross-linked polyethylene total hip arthroplasty. COMPLICATIONS: None. ESTIMATED BLOOD LOSS: 300 mL. FLUID REPLACEMENT: 700 mL crystalloid fluid replacement. ANESTHESIA: Spinal. DRAINS: None. SPECIMENS: Right femoral head sent for pathology. OPERATIVE INDICATIONS: The patient is a 78-year-old female who has had a host of orthopedic issues and problems in the past. She had underwent bilateral knee replacements and just had her left knee revised for loosening 4 months ago. About 3 months ago, she started to develop markedly increased right hip pain and discomfort. She had x-ray showed progressive hip arthritis. She also has known back arthritis. She continues to have debilitating pain which is affecting her quality of life and she elected to proceed with total hip arthroplasty. OPERATIVE FINDINGS: Operative findings revealed moderately advanced hip DJD. She did have cartilage loss of the weightbearing portion of the femoral head and acetabular disease. Not a lot of major osteophytes. Some moderate joint effusion. No real eburnation. OPERATIVE IMPLANTS: Operative implants consisted of: 1. Biomet G7 size 50 mm acetabular shell. 2. A 6.5 cancellous acetabular screws, 1 at 35 mm length and 1 at 20 mm length. 3. An apex hole eliminator. 4. A highly cross-linked polyethylene liner with 50 mm outer diameter, 36 mm inner diameter. 5. DePuy Corail size 10 KLA femoral stem. 6. +5/36 mm ceramic articular ball. OPERATIVE PROCEDURE: The patient was taken to the operating room, identified and placed on the operating table in supine position. All contact areas were appropriately padded. IV antibiotics were provided by anesthesia team. Spinal anesthetic had been implemented in the holding area. Daniel catheter was placed in sterile fashion. The patient was then placed in the left lateral decubitus position. An axillary roll was placed. Stlberg hip positioner was used for positioning. Right hip and leg were then prepped and draped in usual sterile fashion. A posterolateral approach to the right hip was then performed through a curvilinear incision centered over the greater trochanter. Sharp dissection was carried through subcutaneous tissues down to the level of the IT band and gluteal fascia. Of note, she did have a fairly thick lipomatous type of a prominence over her greater trochanter area and the subcutaneous tissues. The IT band and gluteal fascia were then incised longitudinally in line with skin incision. The underlying greater trochanteric bursa was excised. The piriformis and external rotators and posterior capsule were then released from the posterior aspect of the hip joint as a single layer. Hip was internally rotated and dislocated. Femoral neck osteotomy cut was made with the final cut about 7-8 mm above the lesser trochanter. Femoral head was removed and sent for pathology. Femur was retracted anteriorly. Attention was then drawn to the acetabulum. The acetabulum labrum was excised. The pulvinar fat was excised. Sequential reaming of the acetabulum was then performed beginning with size 43 and progressing up to 49. A Biomet G7 size 50 mm acetabular shell was then placed in about 40 degrees of lateral opening and 20 degrees of anteversion. I did place a little extra anteversion in her cup due to her previous spine fusion and increased risk for dislocation. Some anterior osteophytes removed. The cup was fixed with two 6.5 cancellous acetabular screws. A trial liner was placed. Attention was then drawn to the femur. The proximal femur was entered with cookie cutter followed by canal finder. I then broached beginning with a size 8 and progressing up to a 10. We got excellent fit at 10. Calcar reamer was used to smoothen off the calcar. I then trialed the hip and the +5/36 mm ceramic articular ball provided full stability and full extension and external rotation and flexion to 90 degrees, internal rotation to over 60 degrees. I wanted to maximize her stability due to her spine fusion and risk for dislocation and therefore we used a slightly largest head possible I elected to place these implants. We did assess leg lengths and leg lengths seemed equal. All trial implants were removed. An apex hole eliminator was placed. Highly cross-linked polyethylene liner placed. A DePuy Corail size 10 KLA femoral stem was impacted in position. A +5/36 mm ceramic articular ball was placed. Hip was located and once again found to be stable. Attention was then drawn toward closing. The wound was irrigated with copious amounts of pulsatile lavage solution. I did inject locally with 60 mL of 0.5% Marcaine with epinephrine. The patient did receive 1 gram of tranexamic acid intraoperatively. The wound was irrigated. The posterior capsule and external rotators were repaired through drill holes and the posterior trochanter with #2 Ti-Cron suture as a single layer. The IT band and gluteal fascia were then closed with #1 PDS suture in running fashion. The subcutaneous tissue was then closed with 2 layers with the deep layer #2 Vicryl suture in a buried interrupted fashion followed by 2-0 Dexon suture in a subcuticular buried interrupted fashion. The skin was closed with skin keri. Leg was then cleaned, dried and a sterile dressing of Xeroform, 4 x 4, sterile ABD pad and foam tape was applied. The patient then transferred to the recovery room in stable condition. The patient tolerated the procedure well with no complications. All needle and sponge counts were correct at the end of the operation. I attest to the content of the Intraoperative Record and any orders documented therein. Any exception s are noted below.
[2019-01-20] MEDS: POTASSIUM CITRATE 10 MEQ TAB PO SCH ×2 (12:00→20:15)
[2019-01-20] MEDS: PANTOprazole 40 MG TAB PO SCH (12:00)
[2019-01-20] MEDS: LOSARTAN/HCTZ 50/12.5MG TAB PO SCH (12:00)
[2019-01-20] MEDS: CEFAZOLIN 1000MG 1,000 MG/7.5 ML SYR IV SCH ×2 (14:30→22:16)
[2019-01-20] MEDS ORDERED: TRANEXAMIC ACID 1,000 MG in 0.9 % SODIUM CHLORIDE 100 ML IV SCH (14:34)
[2019-01-20] MEDS: HYDROCODONE/ACETAMOPHEN 5/325MG TAB PO PRN ×2 (16:45→21:08)
[2019-01-20] MEDS: FERROUS GLUCONATE 324 MG TAB PO SCH (16:47)
[2019-01-20] MEDS: ASCORBIC ACID 500 MG TAB PO SCH (16:47)
--- NOTE | 2019-01-20 17:51 | Progress Note ---
DATE: 01/20/2019 SUBJECTIVE: A 78-year-old white female postop from a right hip replacement. She is doing pretty well. Having some pain but responded well to the pain medicine. She seemed to do best with hydrocodone. Denies any chest pain or shortness of breath. Not feeling dizzy or lightheaded. OBJECTIVE: VITAL SIGNS: Temperature 36.3. Vital signs stable. GENERAL: She is a pleasant elderly female. She is lying in bed, looks pretty comfortable. She is awake, alert and oriented. LUNGS: Clear to auscultation. HEART: Has a regular rate and rhythm. ABDOMEN: Soft, nontender, nondistended. EXTREMITIES: Grossly neurovascularly intact except as follows: Examination of the right hip and leg reveals the leg lengths to be equal. Dressing is clean, dry and intact. Thigh is soft and supple. She can dorsiflex and plantarflex her foot appropriately. X-RAYS: X-rays of the right hip from recovery room reviewed. It shows a right uncemented total hip arthroplasty. Components looked to be in good position. No signs of problems. ASSESSMENT: A 78-year-old female postop from a right hip replacement, doing pretty well. She does have lot of allergies and does not do well with pain medicines. Her hip is located. She is neurologically intact. PLAN: 1. DVT prophylaxis including thigh-high TEDs, SCDs, and 1 baby aspirin once a day due to compromised kidney function as well as ASPIRIN INTOLERANCE. 2. PT/OT. She will weightbear as tolerated. Right total hip protocol. 3. Pain control, doing okay with current pain regimen. We are going to stick to Tylenol and hydrocodone as much as possible. Unfortunately, she cannot take NSAIDs due to her single kidney and does not do well with other narcotics. 4. IV antibiotics x24 hours. 5. Disposition: Plan to discharge to home with some home health once adequately recovered and medically stable.
[2019-01-20] MEDS: IMATINIB MESYLATE PO SCH (19:14)
[2019-01-20] MEDS: CHOLECALCIFEROL 1,000 UNITS TAB PO SCH (20:15)
[2019-01-20] MEDS: SENNA 8.6 MG TAB PO SCH (20:15)
[2019-01-20] MEDS ORDERED: NON-FORMULARY MEDICATION (Multivitamin 1 CAP) PO SCH (21:00)
[2019-01-21] MEDS: HYDROCODONE/ACETAMOPHEN 5/325MG TAB PO PRN ×5 (03:13→20:42)
[2019-01-21 05:25] LABS: Basophils # (auto) 0.01 K/uL (0-0.2); Basophils % (auto) 0.1 %; Eosinophils # (auto) 0.07 K/uL (0-0.5); Eosinophils % (auto) 0.6 %; Hematocrit (blood only) 29.7 % (37-47); Hemoglobin 9.6 g/dL (12.0-16.0); Immature Granulocytes # (auto) 0.02 K/uL (0.00-0.02); Immature Granulocytes % (auto) 0.2 %; Lymphocytes # (auto) 0.71 K/uL (1.2-3.4); Lymphocytes % (auto) 6.1 %; Mean Corpuscular Hemoglobin 31.9 pg (25-34); Mean Corpuscular Hgb Conc 32.3 g/dL (32-36); Mean Corpuscular Volume 98.7 fL (80-100); Mean Platelet Volume 9.2 fL (7.4-10.4); Monocytes # (auto) 0.85 K/uL (0.11-0.59); Monocytes % (auto) 7.3 %; Neutrophils # (auto) 9.93 K/uL (1.4-6.5); Neutrophils % (auto) 85.7 %; Platelet Count 132 K/uL (130-400); RDW Coefficient of Variation 17.7 % (11.5-14.5); RDW Standard Deviation 61.6 fL (36.4-46.3); Red Blood Count 3.01 M/uL (4.2-5.4); White Blood Count 11.59 K/uL (4.8-10.8)
[2019-01-21 05:51] LABS: BUN Creatinine Ratio 14.5 (10-20); Calcium 8.1 mg/dl (8.5-10.1); Creatinine Clr Calc Pharmacy 23.9 ml/min; Est GFR (African American) 30.1; Potassium 4.1 mmol/L (3.5-5.1)
[2019-01-21] MEDS: LEVOTHYROXINE SODIUM 50 MCG TABLET PO SCH (05:52)
[2019-01-21] MEDS: PANTOprazole 40 MG TAB PO SCH (08:11)
[2019-01-21] MEDS: MULTIVITAMIN TAB PO SCH (08:11)
[2019-01-21] MEDS: ASCORBIC ACID 500 MG TAB PO SCH ×2 (08:11→17:32)
[2019-01-21] MEDS: POTASSIUM CITRATE 10 MEQ TAB PO SCH ×2 (08:11→20:44)
[2019-01-21] MEDS: ASPIRIN 81 MG ECTAB PO SCH (08:11)
[2019-01-21] MEDS: CETIRIZINE HCL 10 MG TABLET PO SCH (08:11)
[2019-01-21] MEDS: DOCUSATE SODIUM 100 MG CAP PO SCH ×2 (08:11→20:46)
[2019-01-21] MEDS: FERROUS GLUCONATE 324 MG TAB PO SCH (08:15)
--- NOTE | 2019-01-21 08:18 | Progress Note ---
DATE: 01/21/2019 SUBJECTIVE: A 78-year-old female postop day 1 from right total hip replacement. She is doing pretty well. As long as she takes pain medicine regularly, her pain is controlled. Denies any chest pain or shortness of breath. Not feeling dizzy or lightheaded. OBJECTIVE: VITAL SIGNS: Temperature 36.6. Vital signs stable. Some low level tachycardia in the low 100s. GENERAL: Shows a pleasant elderly female. Sitting up on her bedside chair, looks completely comfortable. EXTREMITIES: Examination of the right hip and leg reveals the dressing to be clean, dry and intact. Hip is located. She can dorsiflex and plantarflex her foot appropriately. She is neurologically intact. LABORATORY DATA: Hemoglobin 9.6. Hematocrit 29.7. White cell count 11.59. Electrolytes are stable. Creatinine is actually improved. ASSESSMENT: A 78-year-old white female postoperative day 1 from right hip replacement, doing pretty well. Her pain has been controlled as long as she stays on the regular pain medicine. She does have a history of a fairly assisted narcotic use for pain. Her hip is located. She is neurologically intact. PLAN: 1. DVT prophylaxis including thigh-high TEDs, SCDs, and baby aspirin once a day. 2. PT/OT. Weight bear as tolerated. Right total hip protocol. 3. Pain control, doing pretty well with current pain regimen. 4. Disposition: She is hoping to be discharged to home with some home health once adequately recovered.
[2019-01-21] MEDS ORDERED: LOSARTAN POTASSIUM 50 MG TAB PO SCH (09:00)
[2019-01-21] MEDS ORDERED: DARBEPOETIN ALFA 200 MCG/0.4 ML SQ ONE (11:15)
[2019-01-21] MEDS: SENNA 8.6 MG TAB PO SCH (20:45)
[2019-01-21] MEDS: CHOLECALCIFEROL 1,000 UNITS TAB PO SCH (20:46)
[2019-01-21] MEDS: IMATINIB MESYLATE PO SCH (20:47)
[2019-01-22] MEDS: LEVOTHYROXINE SODIUM 50 MCG TABLET PO SCH (06:23)
[2019-01-22] MEDS: HYDROCODONE/ACETAMOPHEN 5/325MG TAB PO PRN ×2 (06:26→10:36)
[2019-01-22] MEDS: PANTOprazole 40 MG TAB PO SCH (08:38)
[2019-01-22] MEDS: CETIRIZINE HCL 10 MG TABLET PO SCH (08:39)
[2019-01-22] MEDS: DOCUSATE SODIUM 100 MG CAP PO SCH (08:39)
[2019-01-22] MEDS: MULTIVITAMIN TAB PO SCH (08:39)
[2019-01-22] MEDS: POTASSIUM CITRATE 10 MEQ TAB PO SCH (08:39)
[2019-01-22] MEDS: LOSARTAN/HCTZ 50/12.5MG TAB PO SCH (08:39)
[2019-01-22] MEDS: ASPIRIN 81 MG ECTAB PO SCH (08:39)
[2019-01-22] MEDS: ASCORBIC ACID 500 MG TAB PO SCH (08:40)
--- NOTE | 2019-01-22 09:20 | Progress Note ---
DATE: 01/22/2019 SUBJECTIVE: A 78-year-old white female postop day 2 from right hip replacement. She is doing well. Pain is controlled. Denies any chest pain or shortness of breath. Not feeling dizzy or lightheaded. OBJECTIVE: VITAL SIGNS: Temperature is 37.0. Vital signs stable. GENERAL: Shows a pleasant elderly female. She is walking around her room this morning with a walker, doing reasonably well. EXTREMITIES: Examination of the right hip reveals incision to be clean, dry and intact. She does have just a blister proximally from the tape. No drainage. Her leg lengths are equal. Hip is located. She is neurologically intact. She can dorsiflex and plantarflex her foot appropriately. ASSESSMENT: A 78-year-old female postop day 2 from right hip replacement, doing pretty well. Pain is controlled. Hip is located. She is neurologically intact. She is anemic, but without symptoms. PLAN: 1. DVT prophylaxis including thigh-high TEDs, SCDs, and baby aspirin once a day. 2. PT/OT. Weight bear as tolerated. Right total hip protocol. 3. Pain control, doing okay with current pain regimen. 4. Disposition. Plan to discharge to home with some home health later today.
--- NOTE | 2019-01-25 12:19 | Discharge Summary ---
DATE OF ADMISSION: 01/20/2019 DATE OF DISCHARGE: 01/22/2019 ADMITTING PHYSICIAN AND SURGEON: Dr. Vamshi Smith. ADMITTING DIAGNOSIS: Right hip degenerative joint disease. SURGERY PERFORMED: Right total hip arthroplasty. SECONDARY DIAGNOSES: Hypertension, chronic myeloid leukemia, arthritis, gastroesophageal reflux disease, hiatal hernia, mild obesity, chronic renal insufficiency. HISTORY AND PHYSICAL EXAMINATION: Well documented in the patient's chart. HOSPITAL COURSE: The patient was admitted on 01/20/2019, underwent total hip arthroplasty, tolerated the procedure well. There were no complications. She was transferred to the PACU postoperatively and later to the orthopedic floor for further care. She was given Ancef for antibiotic prophylaxis, DOUG stockings, SCDs and aspirin for DVT prophylaxis. Hemoglobin, hematocrit and vital signs were monitored during hospital stay and remained stable. She did not require any blood transfusions. There were no complications. By postoperative day 2, she was tolerating a regular diet, pain was controlled with oral pain medicine. She was participating in physical therapy. On postop day 2, she was discharged home, set up with home health services. She was given printed discharge instructions as well as new prescriptions for aspirin and [place]. Continue her home medications with the exception of her home dose of Tylenol, which was stopped. Continue physical therapies, weightbearing as tolerated, DOUG stockings, total hip precautions. Follow up approximately 2 weeks postop or sooner if there are any problems or concerns.
[2019-02-06] MEDS ORDERED: CYANOCOBALAMIN 1000 MCG/ML VIAL IM SCH (09:00)
== END 2019-01-22 11:10 | disposition home health service (06) | DRG 470 ==
LOC: ASU 05:02 → 3E 08:38

== ENCOUNTER 2020-07-12 20:47 | Inpatient (IN) ==
[2020-07-12] MEDS ORDERED: SODIUM CHLORIDE 0.9% 1000ML 1,000 ML IV ONE (21:00)
[2020-07-12] MEDS ORDERED: ACETAMINOPHEN 1,000 MG/100 ML VIAL IV STA (21:16)
[2020-07-12 21:48] LABS: Basophils # (auto) 0.01 K/uL (0-0.2); Basophils % (auto) 0.1 %; Eosinophils # (auto) 0.01 K/uL (0-0.5); Eosinophils % (auto) 0.1 %; Hematocrit (blood only) 33.5 % (37-47); Hemoglobin 11.2 g/dL (12.0-16.0); Immature Granulocytes # (auto) 0.03 K/uL (0.00-0.02); Immature Granulocytes % (auto) 0.2 %; Lymphocytes # (auto) 0.94 K/uL (1.2-3.4); Lymphocytes % (auto) 6.6 %; Mean Corpuscular Hemoglobin 31.7 pg (25-34); Mean Corpuscular Hgb Conc 33.4 g/dL (32-36); Mean Corpuscular Volume 94.9 fL (80-100); Mean Platelet Volume 10.9 fL (7.4-10.4); Monocytes # (auto) 0.61 K/uL (0.11-0.59); Monocytes % (auto) 4.3 %; Neutrophils # (auto) 12.54 K/uL (1.4-6.5); Neutrophils % (auto) 88.7 %; Platelet Count 141 K/uL (130-400); RDW Coefficient of Variation 14.5 % (11.5-14.5); Red Blood Count 3.53 M/uL (4.2-5.4); White Blood Count 14.14 K/uL (4.8-10.8)
[2020-07-12 21:53] LABS: Base Excess VBG 1.5 mEq/L; pH VBG 7.44 (7.36-7.41)
[2020-07-12 21:58] LABS: Partial Thromboplastin Ratio 0.9; Partial Thromboplastin Time 24.9 Seconds (21.0-31.0); Prothrombin Time 10.3 Seconds (9.0-12.0)
[2020-07-12 22:06] LABS: Alanine Aminotransferase 25 U/L (12-78); Albumin Level 2.9 gm/dl (3.4-5.0); Aspartate Aminotransferase 32 U/L (15-37); BUN Creatinine Ratio 19.2 (10-20); Blood Urea Nitrogen 56 mg/dl (7-18); Calcium 10.4 mg/dl (8.5-10.1); Carbon Dioxide 26 mmol/L (21-32); Chloride 102 mmol/L (98-107); Est GFR (African American) 17.2; Est GFR (Non-African American) 14.8; Glucose 154 mg/dl (70-99); Magnesium 1.4 mg/dl (1.8-2.4); Sodium 134 mmol/L (136-145)
[2020-07-12 22:16] LABS: Albumin Globulin Ratio 0.7 (0.9-2); Alkaline Phosphatase 77 U/L (45-117); Bilirubin,Total 0.5 mg/dl (0.2-1); Globulin 4.3 gm/dl (2.5-4.0); Total Protein 7.2 gm/dl (6.4-8.2); Troponin I 0.019 ng/ml (0-0.045)
[2020-07-12 22:33] LABS: Appearance Urine Cloudy (Clear); Bacteria Urine Automated Negative (Negative); Bilirubin Urine Negative (Negative); Blood Urine 2+ (Negative); Color Urine Dark Yellow; Epithelial Cell Urine Auto >30 /lpf (0-5); Glucose Urine UA Negative (Negative); Ketones Urine Trace (Negative); Leukocyte Esterase Urine 1+ (Negative); Nitrite Urine Negative (Negative); Protein Urine 2+ (Negative); RBC Urine Automated 0-4 /hpf (0-4); Specific Gravity Urine 1.018 (1.000-1.030); Urobilinogen Urine Negative (Negative); pH Urine 5.5 (4.5-7.5)
[2020-07-12 22:38] LABS: Influenza A virus by PCR Negative (Neg); Influenza B virus by PCR Negative (Neg); RSV by PCR Negative (Neg); SARS CoV2 RNA(COVID-19) InHosp NEGATIVE (Negative)
[2020-07-12] MEDS ORDERED: CEFEPIME 2,000 MG/20 ML VIAL IV STA (22:58)
[2020-07-12] MEDS ORDERED: VANCOMYCIN HCL 1,500 MG in SODIUM CHLORIDE 0.9% 500 ML IV ONE (23:03)
[2020-07-12] MEDS ORDERED: VANCOMYCIN CONSULT ACTIVE PRN (23:03)
[2020-07-12] MEDS ORDERED: SODIUM CHLORIDE 0.9% 1000ML 1,000 ML IV SCH (23:15)
[2020-07-12] MEDS: MAGNESIUM SULFATE / D5W 1 GM/100 ML BAG IV SCH (23:17)
--- NOTE | 2020-07-12 23:51 | Emergency Department Note ---
History of Present Illness General Chief complaint: Illness Stated complaint: DIZZY, HEADACHE, FEVER Time Seen by Provider: 07/12/20 21:00 History of Present Illness Provider complaint: Dizziness palpitations Onset (ago): day(s) 1 Maximum Pain Intensity: 5 Associated symptoms: + headaches and + weakness; no confusion, no chest pain, no cough, no fever/chills, no nausea/vomiting, no rash, no shortness of breath and no syncope 79-year-old female presents emergency department with 1 day for dizziness and palpitations. She states earlier today she felt weak and dizzy felt like she was going to collapse. She states that her caught her. She did not hit her head. Patient reports no fevers. She does report palpitations. No chest pain difficulty breathing. Patient reports no fevers. She states she thinks her palpitations are related to her PCP recently changing her levothyroxine from 25 mcg to 50 mcg. Patient has history of CML but has not undergone any treatment in the last year. Patient also has a history of donating a kidney. Home Medications Medication Instructions Recorded Confirmed Type PreserVision AREDS-2 1 tab PO BID 09/08/18 07/12/20 History cholecalciferol (vitamin D3) 1,000 unit PO HS 09/08/18 07/12/20 History [Vitamin D3] omeprazole magnesium [Prilosec OTC] 20 mg PO QAM 09/08/18 07/12/20 History hydrocodone 5 mg-acetaminophen 300 2 tab PO Q4H PRN 11/15/18 07/12/20 History mg tablet syringe with needle, safety 3 mL #10 ea 11/30/18 05/10/20 Rx 25 gauge x 5/8" cyanocobalamin (vitamin B-12) 1,000 mcg IM MONTHLY #3 vial 09/14/19 07/12/20 Rx 1,000 mcg/mL injection solution darbepoetin ortega in polysorbat 200 200 mcg SUBCUT .COMPLEX #3 vial 10/12/19 07/12/20 Rx mcg/mL in polysorbate injection aspirin 81 mg tablet,delayed 81 mg PO 2XWK tab 12/12/19 07/12/20 History release cetirizine 10 mg tablet 10 mg PO DAILY tab 12/12/19 07/12/20 History potassium citrate 10 mEq (1,080 1,080 mg PO BID #180 tab 12/25/19 07/12/20 Rx mg) tablet,extended release syringe with needle, safety 3 mL #3 ea 02/20/20 05/10/20 Rx 25 gauge x 1" docusate sodium 100 mg capsule 100 mg PO HS 05/10/20 07/12/20 History losartan 100 mg tablet 100 mg PO DAILY #90 tab 05/27/20 07/12/20 Rx hydrochlorothiazide 25 mg tablet 25 mg PO 2XWK tab 07/09/20 07/12/20 History levothyroxine 75 mcg capsule 75 mcg PO DAILY 07/09/20 07/12/20 History cephalexin 2,000 mg PO DIRECTED PRN 07/12/20 07/12/20 History multivitamin 1 tab PO HS 07/12/20 07/12/20 History Allergies Allergy/AdvReac Type Severity Reaction Status Date / Time banana Allergy Severe "ITCHY Verified 07/12/20 23:09 THROAT" povidone-iodine Allergy Severe BLISTERS Verified 07/12/20 23:09 coconut Allergy Intermediate Rash Verified 07/12/20 23:09 morphine Allergy Intermediate Swelling,VO Verified 07/12/20 23:09 MITING Penicillins Allergy Intermediate Rash Verified 07/12/20 23:09 (Tolerates Cephalosporins) sesame oil Allergy Intermediate Rash from Verified 07/12/20 23:09 sesame seeds Tetracyclines Allergy Intermediate Rash Verified 07/12/20 23:09 ciprofloxacin Allergy Unknown Unknown Verified 07/12/20 23:09 clindamycin Allergy Unknown RASH Verified 07/12/20 23:09 meperidine Allergy Unknown POS SKIN Verified 07/12/20 23:09 TEST sesame seed Allergy Rash Verified 07/12/20 23:09 adhesive AdvReac Severe BLISTERS Verified 07/12/20 23:09 aspirin AdvReac Intermediate Nosebleed/subconjunctival Verified 07/12/20 23:09 hemorrhage hydromorphone AdvReac Intermediate Vomiting Verified 07/12/20 23:09 ketorolac AdvReac Unknown d/t kidney Verified 07/12/20 23:09 issue NSAIDS (Non-Steroidal AdvReac Unknown d/t kidney Verified 07/12/20 23:09 Anti-Inflamma Cantaloupe Allergy Unknown ITCHY Uncoded 07/12/20 23:09 THROAT Past Med/Surg History Medical History Anemia Multifactorial, on Aranesp. 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 Pollen allergies Polyp, colonic Renal insufficiency Kidney function was significantly altered post-donation of kidney, since then baseline Cr has been 1.6-2.0 Sciatica Seasonal allergies Thrombocytopenia Baseline just > 100k Surgical History History of back surgery x2 LUMBAR FUSION History of bilateral knee replacement History of colonoscopy History of esophagogastroduodenoscopy (EGD) History of left hip replacement History of left knee replacement History of nephrectomy left KIDNEY WAS DONATED History of nephrectomy, unilateral History of revision of total replacement of left knee joint 09/15/18 [facility] History of right hip replacement History of total right knee replacement (TKR) Status post total prosthetic replacement of knee joint using cement (09/26/12) Family History Mother Alzheimer disease Osteoporosis Father COPD (chronic obstructive pulmonary disease) Brother Prostate cancer Denies family history of Ovarian cancer Breast cancer Colorectal cancer Social History Smoking Status: Former smoker Second Hand Exposure: No; Hx Alcohol Use: Yes Alcohol type: wine Hx Substance Use: No Preferred Language: Pashto Communication Ability: Effective Metal Sander Required: No Beliefs That Will Affect Care: None marital status: Current Living Situation: Spouse Feels Safe at Home: Yes Assistive Devices: Glasses and Walker Review of Systems A total of 10 systems reviewed and were otherwise negative Physical Exam Vital Signs Vital Signs - 24 hr 07/12/20 20:52 07/12/20 22:05 07/12/20 22:10 Temperature 38.4 C H Temperature Source Temporal Artery Scan Pulse Rate 128 H 117 H 115 H Pulse Rate from SpO2 Sensor 115 H Respiratory Rate 20 24 22 Respiratory Effort / Characteristics Non-Labored Spontaneous Respiratory Depth Normal Respiratory Pattern Regular Blood Pressure 130/78 139/69 Blood Pressure Mean 95 92 Blood Pressure Position Sitting Pulse Oximetry 91 93 93 Oxygen Delivery Method Room Air Room Air Room Air Sepsis Recent Fever Within 48 Hours Yes Sepsis New/Unexplained Change in Mental Status No Sepsis Action Taken by Nursing No Action Required 07/12/20 22:12 07/12/20 22:30 07/12/20 23:00 Temperature 37.7 C H Temperature Source Oral Pulse Rate 114 H 111 H Pulse Rate from SpO2 Sensor 114 H 111 H Respiratory Rate 24 25 H Respiratory Effort / Characteristics Respiratory Depth Respiratory Pattern Blood Pressure 135/63 126/42 L Blood Pressure Mean 87 70 Blood Pressure Position Pulse Oximetry 92 93 Oxygen Delivery Method Room Air Room Air Sepsis Recent Fever Within 48 Hours Sepsis New/Unexplained Change in Mental Status Sepsis Action Taken by Nursing 07/12/20 23:01 07/12/20 23:30 07/12/20 23:31 Temperature Temperature Source Pulse Rate 111 H 108 H 108 H Pulse Rate from SpO2 Sensor 112 H 109 H 108 H Respiratory Rate 25 H 20 20 Respiratory Effort / Characteristics Respiratory Depth Respiratory Pattern Blood Pressure 138/69 Blood Pressure Mean 92 Blood Pressure Position Pulse Oximetry 94 94 94 Oxygen Delivery Method Room Air Room Air Room Air Sepsis Recent Fever Within 48 Hours Sepsis New/Unexplained Change in Mental Status Sepsis Action Taken by Nursing Physical Exam GENERAL: She is oriented to person, place, and time. She appears well-developed and well-nourished. She does not appear distressed. HENT: Exam performed. -Head: Normocephalic and atraumatic. -Right Ear: External ear normal. No mastoid tenderness. -Left Ear: External ear normal. No mastoid tenderness. -Mouth/Throat: The oropharynx is clear and moist. No trismus in the jaw. No dental abscesses or uvula swelling. No oropharyngeal exudate or tonsillar abscesses. EYES: Conjunctivae and EOM are normal. Pupils are equal, round, and reactive to light. Right eye exhibits no discharge. Left eye exhibits no discharge. No scleral icterus. NECK: Normal range of motion. Neck supple. No JVD present. No spinous process tenderness present. No carotid bruit present. No rigidity. No tracheal deviation and normal range of motion present. No Brudzinski's sign and no Kernig's sign n oted. CV: Tachycardic rate, regular rhythm, normal heart sounds and intact distal pulses. There is no peripheral edema. Palpable radial pulses bue. PULM/CHEST: Effort normal and breath sounds normal. No respiratory distress. No stridor. She has no wheezes. She has no rales. -Chest Wall: She exhibits no tenderness. ABD: The abdomen is soft. Bowel sounds are normal. She has no distension. No ma ss is present. There is no tenderness. There is no rebound, no guarding, no Jama's sign and no tenderness at McBurney's point. Rovsig negative MUSC/SKEL: Normal range of motion. There is no peripheral edema, tenderness or deformity. LYMPH: No cervical adenopathy. NEURO: She is alert and oriented to person, place, and time. She has normal strength. No cranial nerve deficit or sensory deficit. Coordination and gait normal. GCS eye subscore is 4. GCS verbal subscore is 5. GCS motor subscore is 6. Cerebellar tests wnl. SKIN: Skin is warm and dry. She is not diaphoretic. PSYCH: She has a normal mood and affect. Behavior is normal. Judgment and thought content normal. Course Course 2100: The patient was evaluated in room C5. A complete history and physical exam was performed Cardiac monitoring: An order was placed for continuous cardiac monitoring. The monitor shows a rate of 130 with sinus tachycardia rhythm Patient was seen in full airborne precautions. Patient was seen in N95's, gloves, gowns, face shield by myself and staff. Sepsis protocols initiated 2300: Patient remains tachycardic. Blood pressure still stable. Labs show leukocytosis of 14. Creatinine is 2.89. Patient states her creatinine usually runs below 2. Magnesium 1.4. Magnesium replacement began in the emergency department. TSH within normal limits. Covid and influenza negative. Chest x- ray and urinalysis negative. Procalcitonin is elevated at 0.98. Patient will be admitted to the hospital and started on broad-spectrum antibiotics vancomycin and cefepime. Discussed case with Dr. Luis Arvizu hospitalist who agrees to admit the patient. Administered Medications Sodium Chloride (Nss 1000ml) 1,000 mls @ 125 mls/hr IV .Q8H MILAGROS Stop: 08/11/20 23:14 Last Admin: 07/12/20 23:17 Dose: 125 mls/hr Documented by: [id number] Magnesium Sulfate/Dextrose (Magnesium Sulfate / D5w) 1 gm in 100 mls @ 100 mls/hr IV Q1H MILAGROS Stop: 07/13/20 01:05 Last Admin: 07/12/20 23:17 Dose: 100 mls/hr Documented by: [id number] Discontinued Medications Sodium Chloride (Nss 1000ml) 1,000 mls @ 999 mls/hr IV .Q1H1M ONE Stop: 07/12/20 22:00 Last Infusion: 07/12/20 23:02 Dose: 0 mls/hr Documented by: [id number] Admin: 07/12/20 21:40 Dose: 999 mls/hr Documented by: [id number] Acetaminophen (Ofirmev) 1,000 mg in 100 mls @ 400 mls/hr IV NOW STA Stop: 07/12/20 21:30 Last Infusion: 07/12/20 22:06 Dose: 0 mls/hr Documented by: [id number] Admin: 07/12/20 21:41 Dose: 400 mls/hr Documented by: [id number] Cefepime HCl (Maxipime) 2,000 mg in 20 mls @ 5 mls/min IV NOW STA; Protocol Stop: 07/12/20 23:01 Last Admin: 07/12/20 23:09 Dose: 5 mls/min Documented by: [id number] Medical Decision Making Laboratory Data Result diagrams: 07/12/20 21:33 07/12/20 21:33 Lab Results 07/12/20 07/12/20 07/12/20 Range/Units 21:33 21:33 21:33 WBC 14.14 H (4.8-10.8) K/uL RBC 3.53 L (4.2-5.4) M/uL Hgb 11.2 L (12.0-16.0) g/dL Hct 33.5 L (37-47) % MCV 94.9 (80-100) fL MCH 31.7 (25-34) pg MCHC 33.4 (32-36) g/dL RDW Std Deviation 50.0 H (36.4-46.3) fL RDW Coeff of Marco A 14.5 (11.5-14.5) % Plt Count 141 (130-400) K/uL MPV 10.9 H (7.4-10.4) fL Immature Gran % (Auto) 0.2 % Neut % (Auto) 88.7 % Lymph % (Auto) 6.6 % Boyd % (Auto) 4.3 % Eos % (Auto) 0.1 % Baso % (Auto) 0.1 % Neut # (Auto) 12.54 H (1.4-6.5) K/uL Lymph # (Auto) 0.94 L (1.2-3.4) K/uL Boyd # (Auto) 0.61 H (0.11-0.59) K/uL Eos # (Auto) 0.01 (0-0.5) K/uL Baso # (Auto) 0.01 (0-0.2) K/uL Immature Gran # (Auto) 0.03 H (0.00-0.02) K/uL PT 10.3 (9.0-12.0) Seconds INR 1.0 (0.9-1.1) APTT 24.9 (21.0-31.0) Seconds PTT Ratio 0.9 VBG pH (7.36-7.41) VBG pCO2 (38-50) mmHg VBG pO2 mmHg VBG HCO3 mmol/L VBG O2 Saturation % VBG Base Excess mEq/L Barometric Pressure mm/Hg Sodium 134 L (136-145) mmol/L Potassium 4.0 (3.5-5.1) mmol/L Chloride 102 (98-107) mmol/L Carbon Dioxide 26 (21-32) mmol/L Anion Gap 6.0 (3-11) BUN 56 H (7-18) mg/dl Creatinine 2.89 H (0.6-1.2) mg/dl Est Cr Clr Drug Dosing Not Reportable Est GFR ( Amer) 17.2 Est GFR (Non-Af Amer) 14.8 BUN/Creatinine Ratio 19.2 (10-20) Glucose 154 H (70-99) mg/dl Lactate (0.4-2.0) mmol/L Calcium 10.4 H (8.5-10.1) mg/dl Magnesium 1.4 L (1.8-2.4) mg/dl Total Bilirubin 0.5 (0.2-1) mg/dl AST 32 (15-37) U/L ALT 25 (12-78) U/L Alkaline Phosphatase 77 (45-117) U/L Troponin I 0.019 (0-0.045) ng/ml Total Protein 7.2 (6.4-8.2) gm/dl Albumin 2.9 L (3.4-5.0) gm/dl Globulin 4.3 H (2.5-4.0) gm/dl Albumin/Globulin Ratio 0.7 L (0.9-2) Procalcitonin (0-0.5) ng/ml TSH 0.630 (0.300-4.500) uIu/ml Urine Color Urine Appearance (Clear) Urine pH (4.5-7.5) Ur Specific [place] (1.000-1.030) Urine Protein (Negative) Urine Glucose (UA) (Negative) Urine Ketones (Negative) Urine Blood (Negative) Urine Nitrite (Negative) Urine Bilirubin (Negative) Urine Urobilinogen (Negative) Ur Leukocyte Esterase (Negative) Urine WBC (Auto) (0-5) /hpf Urine RBC (Auto) (0-4) /hpf U Hyaline Cast (Auto) (0-5) /lpf U Epithel Cells (Auto) (0-5) /lpf Urine Bacteria (Auto) (Negative) Granular Casts (0) /lpf Urine Yeast COVID-19 Eval Order SARS-CoV-2 (PCR) (Negative) Influenza Type A (PCR) (Neg) Influenza Type B (PCR) (Neg) RSV (RT-PCR) (Neg) 07/12/20 07/12/20 07/12/20 Range/Units 21:33 21:33 21:36 WBC (4.8-10.8) K/uL RBC (4.2-5.4) M/uL Hgb (12.0-16.0) g/dL Hct (37-47) % MCV (80-100) fL MCH (25-34) pg MCHC (32-36) g/dL RDW Std Deviation (36.4-46.3) fL RDW Coeff of Marco A (11.5-14.5) % Plt Count (130-400) K/uL MPV (7.4-10.4) fL Immature Gran % (Auto) % Neut % (Auto) % Lymph % (Auto) % Boyd % (Auto) % Eos % (Auto) % Baso % (Auto) % Neut # (Auto) (1.4-6.5) K/uL Lymph # (Auto) (1.2-3.4) K/uL Boyd # (Auto) (0.11-0.59) K/uL Eos # (Auto) (0-0.5) K/uL Baso # (Auto) (0-0.2) K/uL Immature Gran # (Auto) (0.00-0.02) K/uL PT (9.0-12.0) Seconds INR (0.9-1.1) APTT (21.0-31.0) Seconds PTT Ratio VBG pH (7.36-7.41) VBG pCO2 (38-50) mmHg VBG pO2 mmHg VBG HCO3 mmol/L VBG O2 Saturation % VBG Base Excess mEq/L Barometric Pressure mm/Hg Sodium (136-145) mmol/L Potassium (3.5-5.1) mmol/L Chloride (98-107) mmol/L Carbon Dioxide (21-32) mmol/L Anion Gap (3-11) BUN (7-18) mg/dl Creatinine (0.6-1.2) mg/dl Est Cr Clr Drug Dosing Est GFR ( Amer) Est GFR (Non-Af Amer) BUN/Creatinine Ratio (10-20) Glucose (70-99) mg/dl Lactate 1.3 (0.4-2.0) mmol/L Calcium (8.5-10.1) mg/dl Magnesium (1.8-2.4) mg/dl Total Bilirubin (0.2-1) mg/dl AST (15-37) U/L ALT (12-78) U/L Alkaline Phosphatase (45-117) U/L Troponin I (0-0.045) ng/ml Total Protein (6.4-8.2) gm/dl Albumin (3.4-5.0) gm/dl Globulin (2.5-4.0) gm/dl Albumin/Globulin Ratio (0.9-2) Procalcitonin 0.98 H (0-0.5) ng/ml TSH (0.300-4.500) uIu/ml Urine Color Dark Yellow Urine Appearance Cloudy A (Clear) Urine pH 5.5 (4.5-7.5) Ur Specific [place] 1.018 (1.000-1.030) Urine Protein 2+ H (Negative) Urine Glucose (UA) Negative (Negative) Urine Ketones Trace H (Negative) Urine Blood 2+ H (Negative) Urine Nitrite Negative (Negative) Urine Bilirubin Negative (Negative) Urine Urobilinogen Negative (Negative) Ur Leukocyte Esterase 1+ H (Negative) Urine WBC (Auto) 10-30 H (0-5) /hpf Urine RBC (Auto) 0-4 (0-4) /hpf U Hyaline Cast (Auto) 5-10 H (0-5) /lpf U Epithel Cells (Auto) >30 H (0-5) /lpf Urine Bacteria (Auto) Negative (Negative) Granular Casts 5-10 H (0) /lpf Urine Yeast Not Reportable COVID-19 Eval Order SARS-CoV-2 (PCR) (Negative) Influenza Type A (PCR) (Neg) Influenza Type B (PCR) (Neg) RSV (RT-PCR) (Neg) 07/12/20 07/12/20 07/12/20 Range/Units 21:36 21:36 21:40 WBC (4.8-10.8) K/uL RBC (4.2-5.4) M/uL Hgb (12.0-16.0) g/dL Hct (37-47) % MCV (80-100) fL MCH (25-34) pg MCHC (32-36) g/dL RDW Std Deviation (36.4-46.3) fL RDW Coeff of Marco A (11.5-14.5) % Plt Count (130-400) K/uL MPV (7.4-10.4) fL Immature Gran % (Auto) % Neut % (Auto) % Lymph % (Auto) % Boyd % (Auto) % Eos % (Auto) % Baso % (Auto) % Neut # (Auto) (1.4-6.5) K/uL Lymph # (Auto) (1.2-3.4) K/uL Boyd # (Auto) (0.11-0.59) K/uL Eos # (Auto) (0-0.5) K/uL Baso # (Auto) (0-0.2) K/uL Immature Gran # (Auto) (0.00-0.02) K/uL PT (9.0-12.0) Seconds INR (0.9-1.1) APTT (21.0-31.0) Seconds PTT Ratio VBG pH 7.44 H (7.36-7.41) VBG pCO2 38 (38-50) mmHg VBG pO2 33 mmHg VBG HCO3 26 mmol/L VBG O2 Saturation 65.0 % VBG Base Excess 1.5 mEq/L Barometric Pressure 731.4 mm/Hg Sodium (136-145) mmol/L Potassium (3.5-5.1) mmol/L Chloride (98-107) mmol/L Carbon Dioxide (21-32) mmol/L Anion Gap (3-11) BUN (7-18) mg/dl Creatinine (0.6-1.2) mg/dl Est Cr Clr Drug Dosing Est GFR ( Amer) Est GFR (Non-Af Amer) BUN/Creatinine Ratio (10-20) Glucose (70-99) mg/dl Lactate (0.4-2.0) mmol/L Calcium (8.5-10.1) mg/dl Magnesium (1.8-2.4) mg/dl Total Bilirubin (0.2-1) mg/dl AST (15-37) U/L ALT (12-78) U/L Alkaline Phosphatase (45-117) U/L Troponin I (0-0.045) ng/ml Total Protein (6.4-8.2) gm/dl Albumin (3.4-5.0) gm/dl Globulin (2.5-4.0) gm/dl Albumin/Globulin Ratio (0.9-2) Procalcitonin (0-0.5) ng/ml TSH (0.300-4.500) uIu/ml Urine Color Urine Appearance (Clear) Urine pH (4.5-7.5) Ur Specific [place] (1.000-1.030) Urine Protein (Negative) Urine Glucose (UA) (Negative) Urine Ketones (Negative) Urine Blood (Negative) Urine Nitrite (Negative) Urine Bilirubin (Negative) Urine Urobilinogen (Negative) Ur Leukocyte Esterase (Negative) Urine WBC (Auto) (0-5) /hpf Urine RBC (Auto) (0-4) /hpf U Hyaline Cast (Auto) (0-5) /lpf U Epithel Cells (Auto) (0-5) /lpf Urine Bacteria (Auto) (Negative) Granular Casts (0) /lpf Urine Yeast COVID-19 Eval Order CovFluRsv at [facility] SARS-CoV-2 (PCR) NEGATIVE (Negative) Influenza Type A (PCR) Negative (Neg) Influenza Type B (PCR) Negative (Neg) RSV (RT-PCR) Negative (Neg) Imaging Data My Impression: Chest x-ray negative. Airway clear. No pneumothorax. No consolidation. No cardiomegaly or cephalization.. No free air under the diaphragm. No fractures of the skeletal structures. Radiologist's Impression: Preliminary Findings Only See Final Report For Complete Findings CT HEAD: Comparison to July 28, 2017The paranasal sinuses and mastoid air cells are normally aerated. There is no skull fracture or scalp hematoma. There is a normal gyral pattern of the brain. There is no mass lesion or midline shift. The dan-white matter differentiation is maintained. There is mild periventricular white matter low density bilaterally consistent with chronic small vessel disease and/or senescent changes, mildly increased compared to previous. There is no evidence of acute large vessel infarct or intracranial hemorrhage. Radiologist: Bryson Smith MD Study ready at 22:00 and initial results transmitted at 22:10 ECG Data Indication: + tachycardia Rate (beats per minute): 130 Rhythm: + sinus tachycardia ECG Intervals/blocks: + Normal QRS, + Normal VT and + Normal QT-c ECG ST segments: + Normal ST segments MDM Narrative 2100: The patient was evaluated in room C5. A complete history and physical exam was performed Cardiac monitoring: An order was placed for continuous cardiac monitoring. The monitor shows a rate of 130 with sinus tachycardia rhythm Patient was seen in full airborne precautions. Patient was seen in N95's, gloves, gowns, face shield by myself and staff. Sepsis protocols initiated 2300: Patient remains tachycardic. Blood pressure still stable. Labs show leukocytosis of 14. Creatinine is 2.89. Patient states her creatinine usually runs below 2. Magnesium 1.4. Magnesium replacement began in the emergency department. TSH within normal limits. Covid and influenza negative. Chest x- ray and urinalysis negative. Procalcitonin is elevated at 0.98. Patient will be admitted to the hospital and started on broad-spectrum antibiotics vancomycin and cefepime. Discussed case with Dr. Smith [facility] hospitalist who agrees to admit the patient. Impression & Plan Sepsis, BEAR (acute kidney injury), Hypomagnesemia Discharge Plan Visit Data Chief Complaint: Illness Stated Complaint: DIZZY, HEADACHE, FEVER ED Provider: Rafat Avelar Discharge Problem: Sepsis, BEAR (acute kidney injury), Hypomagnesemia Patient Disposition: Admitted As Inpatient Forms Stand Alone Forms: My [facility] Prescriptions Prescriptions: No Action (DME) BD Safety-Yvon Detachable Needl 3 mL 25 gauge x 5/8" syringe See Dose Instructions .ROUTE .MEDSUPPLY Qty: 10 RF: 2 cyanocobalamin (vitamin B-12) 1,000 mcg/mL solution 1,000 mcg IM MONTHLY Qty: 3 RF: 3 Aranesp (in polysorbate) 200 mcg/mL solution 200 mcg subcut .COMPLEX Qty: 3 RF: 1 potassium citrate 10 mEq (1,080 mg) tablet extended release 1,080 mg PO BID Qty: 180 RF: 3 (DME) BD Integra Syringe 3 mL 25 gauge x 1" syringe See Dose Instructions .ROUTE .MEDSUPPLY Qty: 3 RF: 4 losartan 100 mg tablet 100 mg PO DAILY Qty: 90 RF: 3 docusate sodium 100 mg capsule 100 mg PO HS RF: 0 hydrochlorothiazide 25 mg tablet 25 mg PO 2XWK RF: 0 cetirizine 10 mg tablet 10 mg PO DAILY RF: 0 aspirin 81 mg tablet,delayed release (DR/EC) 81 mg PO 2XWK RF: 0 hydrocodone-acetaminophen 5-300 mg tablet 2 tab PO Q4H PRN (Reason: Pain) RF: 0 levothyroxine 75 mcg capsule 75 mcg PO DAILY RF: 0 cholecalciferol (vitamin D3) [Vitamin D3] 1,000 unit Capsule 1,000 unit PO HS RF: 0 omeprazole magnesium [Prilosec OTC] 20 mg Tablet,Delayed Release (Dr/Ec) 20 mg PO QAM RF: 0 PreserVision AREDS-2 [id number] Capsule 1 tab PO BID RF: 0 multivitamin Tablet 1 tab PO HS RF: 0 cephalexin 500 mg capsule 2,000 mg PO DIRECTED PRN (Reason: 1 HOUR PRIOR TO PROCEDURES) RF: 0 Referrals Referrals: Josh Vargas MD [Primary Care Provider] - Discharge Problem: Sepsis Qualifiers: Sepsis type: sepsis due to unspecified organism Sepsis acute organ dysfunction status: unspecified Qualified Code(s): A41.9 - Sepsis, unspecified organism
--- NOTE | 2020-07-12 23:53 | History & Physical Report ---
Date of Service July 12, 2020 Assessment & Plan (1) Sepsis: Patient febrile, tachycardic with leukocytosis WBC=14.14 with neutrophil predominance and lymphopenia, mildly elevated procalcitonin at 0.98. Source unclear at this time. CXR without focal infiltrate. UA with protein, blood and leukocytes but no bacteria/nitrite. She is mildly tachycardic, BP is stable. -Follow cultures -Empiric Vancomycin and Ceftriaxone -Tylenol as needed for fever -Check renal ultrasound - patient with history of nephrolithiasis in past Present on Admission?: Yes (2) BEAR (acute kidney injury): Patient with history of chronic renal insufficiency with baseline Cr of 1.6 - 2.3. Presently with elevated levels of BUN=56 and Cr=2.89. Patient is on HCTZ as well as Losartan for BP management. She denies NSAID use. Elevation of BUN and Cr most likely multifactorial - volume depletion + medication effects. She is urinating without difficulty. Denies flank pain, hematuria, dysuria or suprapubic discomfort -Check random urine Na and Urea -Check CK -Check renal US to assess for stones -IVF -Avoid nephrotoxic agents, renal dosing where needed -Monitor BUN, Cr, electrolytes and UOP Present on Admission?: Yes (3) Hypomagnesemia: Mg=1.4. To receive 3gm supplemental Mg -Repeat leve in AM Present on Admission?: Yes (4) Tendinitis of both rotator cuffs: S/p steroid injection. Do not strongly suspect that this is source of infection -Pain control PRN Present on Admission?: Yes (5) Hypothyroid: Patient recently had her Synthroid dose increased from 25 --> 75mcg. Since then she has noted faster heart rate. She has had a slightly elevated blood pressure as well. She also endorses poor sleep and rapid weight loss of appx 6#s in the last several days. Could symptoms be secondary to increased Synthroid dose? -Will hold Synthroid for now -Check TSH and T -Will most likely resume Synthroid at lower dose Present on Admission?: Yes (6) Chronic myelogenous leukemia (CML), [id number]: History of CML presently thought to be in remission. She was on Gleevec in the past which has since been discontinued > 1 year ago -Outpatient monitoring as scheduled Present on Admission?: Yes (7) Hypertension: Blood pressure stable, well controlled overall with Losartan and HCTZ. -Holding antihypertensives for now due to renal compromise -Continue to monitor BP Present on Admission?: Yes (8) Chronic anemia: Stable. Chronic. Patient has received Aranesp in the past -Continue to monitor Present on Admission?: Yes (9) Hypercholesterolemia: F/E/N - NSS at 100mL/hr, Mg repletion as above, repeat chemistry in AM, AHA diet as tolerated Ppx - Heparin ppx Code - DNR/DNI per discussion Dispo -Admit to medical with telemetry History of Present Illness Chief Complaint: Illness Primary Care Provider: Josh Vargas MD Natasha Li is a 79yo female with history of CML in remission presenting with feeling of illness. Patient reports having steroid injections in her shoulders performed on 07/10/20. Since then she has been experiencing poor sleep and feeling ill. She has also had episodes of dizziness, gait instability, palpitations and tachycardia, poor appetite. She states she has lost 6 pounds in the last 4 days. She reports three episodes where her legs gave out while she was walking. Also several near syncopal events. Patient febrile, tachycardic and tachypneic on arrival to the ER. ER Course: Cefepime, Vancomycin Allergies Allergy/AdvReac Type Severity Reaction Status Date / Time banana Allergy Severe "ITCHY Verified 07/12/20 23:09 THROAT" povidone-iodine Allergy Severe BLISTERS Verified 07/12/20 23:09 coconut Allergy Intermediate Rash Verified 07/12/20 23:09 morphine Allergy Intermediate Swelling,VO Verified 07/12/20 23:09 MITING Penicillins Allergy Intermediate Rash Verified 07/12/20 23:09 (Tolerates Cephalosporins) sesame oil Allergy Intermediate Rash from Verified 07/12/20 23:09 sesame seeds Tetracyclines Allergy Intermediate Rash Verified 07/12/20 23:09 ciprofloxacin Allergy Unknown Unknown Verified 07/12/20 23:09 clindamycin Allergy Unknown RASH Verified 07/12/20 23:09 meperidine Allergy Unknown POS SKIN Verified 07/12/20 23:09 TEST sesame seed Allergy Rash Verified 07/12/20 23:09 adhesive AdvReac Severe BLISTERS Verified 07/12/20 23:09 aspirin AdvReac Intermediate Nosebleed/subconjunctival Verified 07/12/20 23:09 hemorrhage hydromorphone AdvReac Intermediate Vomiting Verified 07/12/20 23:09 ketorolac AdvReac Unknown d/t kidney Verified 07/12/20 23:09 issue NSAIDS (Non-Steroidal AdvReac Unknown d/t kidney Verified 07/12/20 23:09 Anti-Inflamma Cantaloupe Allergy Unknown ITCHY Uncoded 07/12/20 23:09 THROAT Home Medications Medication Instructions Recorded Confirmed Type PreserVision AREDS-2 1 tab PO BID 09/08/18 07/12/20 History cholecalciferol (vitamin D3) 1,000 unit PO HS 09/08/18 07/12/20 History [Vitamin D3] omeprazole magnesium [Prilosec OTC] 20 mg PO QAM 09/08/18 07/12/20 History hydrocodone 5 mg-acetaminophen 300 2 tab PO Q4H PRN 11/15/18 07/12/20 History mg tablet syringe with needle, safety 3 mL #10 ea 11/30/18 05/10/20 Rx 25 gauge x 5/8" cyanocobalamin (vitamin B-12) 1,000 mcg IM MONTHLY #3 vial 09/14/19 07/12/20 Rx 1,000 mcg/mL injection solution darbepoetin ortega in polysorbat 200 200 mcg SUBCUT .COMPLEX #3 vial 10/12/19 07/12/20 Rx mcg/mL in polysorbate injection aspirin 81 mg tablet,delayed 81 mg PO 2XWK tab 12/12/19 07/12/20 History release cetirizine 10 mg tablet 10 mg PO DAILY tab 12/12/19 07/12/20 History potassium citrate 10 mEq (1,080 1,080 mg PO BID #180 tab 12/25/19 07/12/20 Rx mg) tablet,extended release syringe with needle, safety 3 mL #3 ea 02/20/20 05/10/20 Rx 25 gauge x 1" docusate sodium 100 mg capsule 100 mg PO HS 05/10/20 07/12/20 History losartan 100 mg tablet 100 mg PO DAILY #90 tab 05/27/20 07/12/20 Rx hydrochlorothiazide 25 mg tablet 25 mg PO 2XWK tab 07/09/20 07/12/20 History levothyroxine 75 mcg capsule 75 mcg PO DAILY 07/09/20 07/12/20 History cephalexin 2,000 mg PO DIRECTED PRN 07/12/20 07/12/20 History multivitamin 1 tab PO HS 07/12/20 07/12/20 History Past Med/Surg History Medical History Anemia Multifactorial, on Aranesp. 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 Pollen allergies Polyp, colonic Renal insufficiency Kidney function was significantly altered post-donation of kidney, since then baseline Cr has been 1.6-2.0 Sciatica Seasonal allergies Thrombocytopenia Baseline just > 100k Surgical History History of back surgery x2 LUMBAR FUSION History of bilateral knee replacement History of colonoscopy History of esophagogastroduodenoscopy (EGD) History of left hip replacement History of left knee replacement History of nephrectomy left KIDNEY WAS DONATED History of nephrectomy, unilateral History of revision of total replacement of left knee joint 09/15/18 [facility] History of right hip replacement History of total right knee replacement (TKR) Status post total prosthetic replacement of knee joint using cement (09/26/12) Family History Mother Alzheimer disease Osteoporosis Father COPD (chronic obstructive pulmonary disease) Brother Prostate cancer Denies family history of Ovarian cancer Breast cancer Colorectal cancer Social History Smoking Status: Former smoker Second Hand Exposure: No; Hx Alcohol Use: Yes Alcohol type: wine Hx Substance Use: No Preferred Language: Malay Communication Ability: Effective Rn Postpartum Required: No Beliefs That Will Affect Care: None marital status: Current Living Situation: Spouse Feels Safe at Home: Yes Assistive Devices: Glasses and Walker Review of Systems Review of Systems: All systems reviewed & are unremarkable except as noted in HPI & below +Headache +Facial pain +TMJ right more painful than left Denies chest pain, abdominal pain, nausea/vomiting/diarrhea/constipation, flank pain, dysuria Physical Exam Physical Exam: General: patient resting comfortably, NAD, non-toxic in appearance, AA&O x 4 Skin: warm, dry, intact, no rashes or lesions HEENT: NC/AT, PERRL, EOMI, anicteric sclera, conjunctiva without injection, external ear normal to inspection and nontender, nares patent, moist mucus membranes, dentition intact, no oropharyngeal lesions, neck supple, trachea midline, no LAD, no thyromegaly, no JVD, no lid lag Heart: +S1/S2, regular, tachycardic, no m/r/g Lungs: equal air entry bilaterally, no rales/rhonchi/wheezes Abd: +BS, soft, NT/ND, no masses/organomegaly/ascites Ext: warm, 2+ pulses in UE/LE bilaterally, no clubbing/cyanosis or edema Neuro: nonfocal, patient AA&O x 4, speech intact, no facial droop, moving all extremities on command with equal strength 5/5, no tremor Results & Data Results & Data ([facility]) Vital Signs (Past 12 Hours) Vital Signs Temp Pulse Resp BP Pulse Ox 07/12/20 23:31 108 H 20 94 07/12/20 23:30 108 H 20 138/69 94 07/12/20 23:01 111 H 25 H 94 07/12/20 23:00 111 H 25 H 126/42 L 93 07/12/20 22:30 114 H 24 135/63 92 07/12/20 22:12 37.7 C H 07/12/20 22:10 115 H 22 139/69 93 07/12/20 22:05 117 H 24 93 07/12/20 20:52 38.4 C H 128 H 20 130/78 91 Laboratory Results Lab Results 07/12/20 07/12/20 07/12/20 Range/Units 21:33 21:33 21:33 WBC 14.14 H (4.8-10.8) K/uL RBC 3.53 L (4.2-5.4) M/uL Hgb 11.2 L (12.0-16.0) g/dL Hct 33.5 L (37-47) % MCV 94.9 (80-100) fL MCH 31.7 (25-34) pg MCHC 33.4 (32-36) g/dL RDW Std Deviation 50.0 H (36.4-46.3) fL RDW Coeff of Marco A 14.5 (11.5-14.5) % Plt Count 141 (130-400) K/uL MPV 10.9 H (7.4-10.4) fL Immature Gran % (Auto) 0.2 % Neut % (Auto) 88.7 % Lymph % (Auto) 6.6 % [place] % (Auto) 4.3 % Eos % (Auto) 0.1 % Baso % (Auto) 0.1 % Neut # (Auto) 12.54 H (1.4-6.5) K/uL Lymph # (Auto) 0.94 L (1.2-3.4) K/uL [place] # (Auto) 0.61 H (0.11-0.59) K/uL Eos # (Auto) 0.01 (0-0.5) K/uL Baso # (Auto) 0.01 (0-0.2) K/uL Immature Gran # (Auto) 0.03 H (0.00-0.02) K/uL PT 10.3 (9.0-12.0) Seconds INR 1.0 (0.9-1.1) APTT 24.9 (21.0-31.0) Seconds PTT Ratio 0.9 VBG pH (7.36-7.41) VBG pCO2 (38-50) mmHg VBG pO2 mmHg VBG HCO3 mmol/L VBG O2 Saturation % VBG Base Excess mEq/L Barometric Pressure mm/Hg Sodium 134 L (136-145) mmol/L Potassium 4.0 (3.5-5.1) mmol/L Chloride 102 (98-107) mmol/L Carbon Dioxide 26 (21-32) mmol/L Anion Gap 6.0 (3-11) BUN 56 H (7-18) mg/dl Creatinine 2.89 H (0.6-1.2) mg/dl Est Cr Clr Drug Dosing Not Reportable Est GFR ( Amer) 17.2 Est GFR (Non-Af Amer) 14.8 BUN/Creatinine Ratio 19.2 (10-20) Glucose 154 H (70-99) mg/dl Lactate (0.4-2.0) mmol/L Calcium 10.4 H (8.5-10.1) mg/dl Magnesium 1.4 L (1.8-2.4) mg/dl Total Bilirubin 0.5 (0.2-1) mg/dl AST 32 (15-37) U/L ALT 25 (12-78) U/L Alkaline Phosphatase 77 (45-117) U/L Troponin I 0.019 (0-0.045) ng/ml Total Protein 7.2 (6.4-8.2) gm/dl Albumin 2.9 L (3.4-5.0) gm/dl Globulin 4.3 H (2.5-4.0) gm/dl Albumin/Globulin Ratio 0.7 L (0.9-2) Procalcitonin (0-0.5) ng/ml TSH 0.630 (0.300-4.500) uIu/ml Urine Color Urine Appearance (Clear) Urine pH (4.5-7.5) Ur Specific Bynum (1.000-1.030) Urine Protein (Negative) Urine Glucose (UA) (Negative) Urine Ketones (Negative) Urine Blood (Negative) Urine Nitrite (Negative) Urine Bilirubin (Negative) Urine Urobilinogen (Negative) Ur Leukocyte Esterase (Negative) Urine WBC (Auto) (0-5) /hpf Urine RBC (Auto) (0-4) /hpf U Hyaline Cast (Auto) (0-5) /lpf U Epithel Cells (Auto) (0-5) /lpf Urine Bacteria (Auto) (Negative) Granular Casts (0) /lpf Urine Yeast COVID-19 Eval Order SARS-CoV-2 (PCR) (Negative) Influenza Type A (PCR) (Neg) Influenza Type B (PCR) (Neg) RSV (RT-PCR) (Neg) 07/12/20 07/12/20 07/12/20 Range/Units 21:33 21:33 21:36 WBC (4.8-10.8) K/uL RBC (4.2-5.4) M/uL Hgb (12.0-16.0) g/dL Hct (37-47) % MCV (80-100) fL MCH (25-34) pg MCHC (32-36) g/dL RDW Std Deviation (36.4-46.3) fL RDW Coeff of Marco A (11.5-14.5) % Plt Count (130-400) K/uL MPV (7.4-10.4) fL Immature Gran % (Auto) % Neut % (Auto) % Lymph % (Auto) % [place] % (Auto) % Eos % (Auto) % Baso % (Auto) % Neut # (Auto) (1.4-6.5) K/uL Lymph # (Auto) (1.2-3.4) K/uL [place] # (Auto) (0.11-0.59) K/uL Eos # (Auto) (0-0.5) K/uL Baso # (Auto) (0-0.2) K/uL Immature Gran # (Auto) (0.00-0.02) K/uL PT (9.0-12.0) Seconds INR (0.9-1.1) APTT (21.0-31.0) Seconds PTT Ratio VBG pH (7.36-7.41) VBG pCO2 (38-50) mmHg VBG pO2 mmHg VBG HCO3 mmol/L VBG O2 Saturation % VBG Base Excess mEq/L Barometric Pressure mm/Hg Sodium (136-145) mmol/L Potassium (3.5-5.1) mmol/L Chloride (98-107) mmol/L Carbon Dioxide (21-32) mmol/L Anion Gap (3-11) BUN (7-18) mg/dl Creatinine (0.6-1.2) mg/dl Est Cr Clr Drug Dosing Est GFR ( Amer) Est GFR (Non-Af Amer) BUN/Creatinine Ratio (10-20) Glucose (70-99) mg/dl Lactate 1.3 (0.4-2.0) mmol/L Calcium (8.5-10.1) mg/dl Magnesium (1.8-2.4) mg/dl Total Bilirubin (0.2-1) mg/dl AST (15-37) U/L ALT (12-78) U/L Alkaline Phosphatase (45-117) U/L Troponin I (0-0.045) ng/ml Total Protein (6.4-8.2) gm/dl Albumin (3.4-5.0) gm/dl Globulin (2.5-4.0) gm/dl Albumin/Globulin Ratio (0.9-2) Procalcitonin 0.98 H (0-0.5) ng/ml TSH (0.300-4.500) uIu/ml Urine Color Dark Yellow Urine Appearance Cloudy A (Clear) Urine pH 5.5 (4.5-7.5) Ur Specific Bynum 1.018 (1.000-1.030) Urine Protein 2+ H (Negative) Urine Glucose (UA) Negative (Negative) Urine Ketones Trace H (Negative) Urine Blood 2+ H (Negative) Urine Nitrite Negative (Negative) Urine Bilirubin Negative (Negative) Urine Urobilinogen Negative (Negative) Ur Leukocyte Esterase 1+ H (Negative) Urine WBC (Auto) 10-30 H (0-5) /hpf Urine RBC (Auto) 0-4 (0-4) /hpf U Hyaline Cast (Auto) 5-10 H (0-5) /lpf U Epithel Cells (Auto) >30 H (0-5) /lpf Urine Bacteria (Auto) Negative (Negative) Granular Casts 5-10 H (0) /lpf Urine Yeast Not Reportable COVID-19 Eval Order SARS-CoV-2 (PCR) (Negative) Influenza Type A (PCR) (Neg) Influenza Type B (PCR) (Neg) RSV (RT-PCR) (Neg) 07/12/20 07/12/20 07/12/20 Range/Units 21:36 21:36 21:40 WBC (4.8-10.8) K/uL RBC (4.2-5.4) M/uL Hgb (12.0-16.0) g/dL Hct (37-47) % MCV (80-100) fL MCH (25-34) pg MCHC (32-36) g/dL RDW Std Deviation (36.4-46.3) fL RDW Coeff of Marco A (11.5-14.5) % Plt Count (130-400) K/uL MPV (7.4-10.4) fL Immature Gran % (Auto) % Neut % (Auto) % Lymph % (Auto) % [place] % (Auto) % Eos % (Auto) % Baso % (Auto) % Neut # (Auto) (1.4-6.5) K/uL Lymph # (Auto) (1.2-3.4) K/uL [place] # (Auto) (0.11-0.59) K/uL Eos # (Auto) (0-0.5) K/uL Baso # (Auto) (0-0.2) K/uL Immature Gran # (Auto) (0.00-0.02) K/uL PT (9.0-12.0) Seconds INR (0.9-1.1) APTT (21.0-31.0) Seconds PTT Ratio VBG pH 7.44 H (7.36-7.41) VBG pCO2 38 (38-50) mmHg VBG pO2 33 mmHg VBG HCO3 26 mmol/L VBG O2 Saturation 65.0 % VBG Base Excess 1.5 mEq/L Barometric Pressure 731.4 mm/Hg Sodium (136-145) mmol/L Potassium (3.5-5.1) mmol/L Chloride (98-107) mmol/L Carbon Dioxide (21-32) mmol/L Anion Gap (3-11) BUN (7-18) mg/dl Creatinine (0.6-1.2) mg/dl Est Cr Clr Drug Dosing Est GFR ( Amer) Est GFR (Non-Af Amer) BUN/Creatinine Ratio (10-20) Glucose (70-99) mg/dl Lactate (0.4-2.0) mmol/L Calcium (8.5-10.1) mg/dl Magnesium (1.8-2.4) mg/dl Total Bilirubin (0.2-1) mg/dl AST (15-37) U/L ALT (12-78) U/L Alkaline Phosphatase (45-117) U/L Troponin I (0-0.045) ng/ml Total Protein (6.4-8.2) gm/dl Albumin (3.4-5.0) gm/dl Globulin (2.5-4.0) gm/dl Albumin/Globulin Ratio (0.9-2) Procalcitonin (0-0.5) ng/ml TSH (0.300-4.500) uIu/ml Urine Color Urine Appearance (Clear) Urine pH (4.5-7.5) Ur Specific Bynum (1.000-1.030) Urine Protein (Negative) Urine Glucose (UA) (Negative) Urine Ketones (Negative) Urine Blood (Negative) Urine Nitrite (Negative) Urine Bilirubin (Negative) Urine Urobilinogen (Negative) Ur Leukocyte Esterase (Negative) Urine WBC (Auto) (0-5) /hpf Urine RBC (Auto) (0-4) /hpf U Hyaline Cast (Auto) (0-5) /lpf U Epithel Cells (Auto) (0-5) /lpf Urine Bacteria (Auto) (Negative) Granular Casts (0) /lpf Urine Yeast COVID-19 Eval Order CovFluRsv at [facility] SARS-CoV-2 (PCR) NEGATIVE (Negative) Influenza Type A (PCR) Negative (Neg) Influenza Type B (PCR) Negative (Neg) RSV (RT-PCR) Negative (Neg) Diagnostic Findings CT Head - per STAT-rad - paranasal sinuses and mastoid air cells are normally aerated. No skull fracture or scalp hematoma. Normal gyral pattern of th ebrain. No mass lesion or midline shift. Curiel-white matter differentiation is maintained. There is mild periventricular white matter low density bilaterlly consistent with chronic small vessel disease and/or senescent changes, mildly increased compared to previous. No evidence of large vessel infarct. CXR - by my interpretation - no acute process. Possibly interstitial thickening, reticular pattern noted on lungfields ECG Additional Comments: EKG with ST at 130, normal axis, LM=270, QRS=82, ZKx=841. No acute ischemic changes Code Status & VTE Plan VTE Prophylaxis Plan VTE Prophylaxis will be ordered: Yes PG Care Time/CCT Total # of Minutes Spent Total Time Spent with Patient: Total time spent is greater than 50% in coordination of care (as documented) at patient's floor/unit and/or counseling patient: Coding Level of Care Code 53953 Initial Inpt Care Lvl 3 Diagnoses Sepsis A41.9 Sepsis acute organ dysfunction status: unspecified Sepsis type: sepsis due to unspecified organism BEAR (acute kidney injury) N17.9 Hypomagnesemia E83.42 Tendinitis of both rotator cuffs M75.81; M75.82 Hypothyroid E03.9 Hypothyroidism type: unspecified Chronic myelogenous leukemia (CML), [id number] C92.11 Leukemia Active/Remission status: in remission Hypertension I10 Hypertension type: essential hypertension Chronic anemia D64.9 Hypercholesterolemia E78.00 (1) Chronic myelogenous leukemia (CML), [id number] Leukemia Active/Remission status: in remission Qualified Code(s): C92.11 - Chronic myeloid leukemia, BCR/ABL-positive, in remission (2) Hypothyroid Hypothyroidism type: unspecified Qualified Code(s): E03.9 - Hypothyroidism, unspecified (3) Sepsis Sepsis acute organ dysfunction status: unspecified Sepsis type: sepsis due to unspecified organism Qualified Code(s): A41.9 - Sepsis, unspecified organism (4) Hypertension Hypertension type: essential hypertension Qualified Code(s): I10 - Essential (primary) hypertension
[2020-07-13] MEDS: MAGNESIUM SULFATE / D5W 1 GM/100 ML BAG IV SCH ×3 (00:22→04:47)
[2020-07-13] MEDS ORDERED: VANCOMYCIN HCL 1,000 MG in SODIUM CHLORIDE 0.9% 250 ML IV SCH (02:02)
[2020-07-13] MEDS ORDERED: ACETAMINOPHEN 325 MG TAB PO PRN (02:02)
[2020-07-13] MEDS ORDERED: POLYETHYLENE (MIRALAX) 17 GM PACK PO PRN (02:02)
[2020-07-13] MEDS ORDERED: VANCOMYCIN CONSULT ACTIVE PRN (02:02)
[2020-07-13] MEDS ORDERED: SODIUM CHLORIDE 0.9% 1000ML 1,000 ML IV SCH (02:02)
[2020-07-13 02:27] LABS: Creatine Kinase 282 U/L (26-192)
[2020-07-13] MEDS: cefTRIAXone SODIUM 1,000 MG in DEXTROSE 5% 50 ML IV SCH (05:29)
[2020-07-13 06:11] LABS: Basophils # (auto) 0.02 K/uL (0-0.2); Basophils % (auto) 0.1 %; Eosinophils # (auto) 0.01 K/uL (0-0.5); Eosinophils % (auto) 0.1 %; Hematocrit (blood only) 30.2 % (37-47); Hemoglobin 10.2 g/dL (12.0-16.0); Immature Granulocytes # (auto) 0.04 K/uL (0.00-0.02); Immature Granulocytes % (auto) 0.3 %; Lymphocytes # (auto) 0.44 K/uL (1.2-3.4); Lymphocytes % (auto) 3.3 %; Mean Corpuscular Hemoglobin 31.7 pg (25-34); Mean Corpuscular Hgb Conc 33.8 g/dL (32-36); Mean Corpuscular Volume 93.8 fL (80-100); Neutrophils % (auto) 90.2 %; Platelet Count 135 K/uL (130-400); RDW Coefficient of Variation 14.6 % (11.5-14.5); Red Blood Count 3.22 M/uL (4.2-5.4); White Blood Count 13.41 K/uL (4.8-10.8)
[2020-07-13 06:47] LABS: BUN Creatinine Ratio 21.6 (10-20); Calcium 9.8 mg/dl (8.5-10.1); Creatinine Clr Calc Pharmacy 20.2 ml/min; Est GFR (African American) 24.3; Potassium 3.8 mmol/L (3.5-5.1)
[2020-07-13 06:57] LABS: Magnesium 2.6 mg/dl (1.8-2.4); T4 Free Thyroxine 1.22 ng/dl (0.8-1.6); Thyroid Stimulating Hormone 0.288 uIu/ml (0.300-4.500)
--- NOTE | 2020-07-13 07:55 | CT Scan Report ---
CT SCAN OF THE BRAIN WITHOUT IV CONTRAST CLINICAL HISTORY: Change in mental status. COMPARISON STUDY: CT of the brain dated 07/28/2017. TECHNIQUE: Unenhanced axial CT scan of the brain is performed from the vertex to the skull base. A do se lowering technique was utilized adhering to the principles of ALARA. CT DOSE: 614.27 mGy.cm FINDINGS: Brain parenchyma: There are age-related involutional changes noting moderate subcortical and periven tricular microangiopathic change. There is no hemorrhage, mass effect, or evidence of acute territori al ischemia by CT criteria. Curiel-white matter differentiation is preserved. No extra-axial fluid alex ection is seen. Ventricles, sulci, cisterns: Prominent secondary to involutional change. Intracranial vasculature: There is atherosclerotic calcification of the cavernous carotid and vertebr al arteries. Calvarium: Unremarkable. Sinuses and mastoids: The visualized paranasal sinuses are clear. The mastoid air cells are well pneu matized. Orbits: The bony orbits are grossly intact. There are bilateral ocular lens implants. IMPRESSION: There is no hemorrhage, mass effect, or evidence of acute territorial ischemia by CT gayle sahni. ACT 112: Negative or not required by law. Electronically signed by: Devante Temple M.D. 07/13/2020 7:54 AM
[2020-07-13] MEDS: PANTOprazole 40 MG TAB PO SCH (08:04)
[2020-07-13] MEDS: CETIRIZINE HCL 10 MG TABLET PO SCH (08:04)
[2020-07-13] MEDS: HEPARIN SOD 5,000 UNIT/0.5 ML VIAL SQ SCH ×2 (08:04→20:29)
--- NOTE | 2020-07-13 08:28 | XRay Report ---
SINGLE VIEW CHEST CLINICAL HISTORY: Sepsis. FINDINGS: An AP, portable, upright chest radiograph is compared to study dated 02/12/2020. The examin ation is degraded by portable technique and apical lordotic positioning. The cardiomediastinal silhou ette is unremarkable noting mild atherosclerotic calcification of the thoracic aorta. Chronic interst itial thickening is similar to previous. Airspace consolidation is noted at the left lung base in the retrocardiac region. No large pleural effusion or pneumothorax is seen. The skeletal structures are osteopenic. The bony thorax is grossly intact. IMPRESSION: Airspace consolidation is seen at the left lung base in the retrocardiac region. Correlat e clinically for evidence of pneumonia/aspiration pneumonitis. Renographic follow-up to resolution is recommended. ACT 112: Negative or not required by law. Electronically signed by: Devante Temple M.D. 07/13/2020 8:27 AM
--- NOTE | 2020-07-13 11:21 | Ultrasound Report ---
ULTRASOUND KIDNEYS AND BLADDER CLINICAL HISTORY: Acute renal insufficiency. COMPARISON STUDY: Abdominal CT dated 03/09/2018. TECHNIQUE: Real-time, grayscale, and color flow sonography of the kidneys and bladder is performed. I mages are reviewed in the transverse and longitudinal planes. FINDINGS: Kidneys: The right kidney is normal in size and echotexture, measuring 10.6 cm in length. The left ki dney is not identified and reported surgically absent. There is no right-sided hydronephrosis. No sha dowing renal calculi are identified. There is no sonographic evidence of contour deforming renal mass lesion. No perinephric fluid is identified. Bladder: The bladder is decompressed and cannot be evaluated. IMPRESSION: 1. The right kidney is normal in size and without hydronephrosis. 2. The left kidney is not identified and reported surgically absent. 3. The bladder was decompressed and could not be evaluated. ACT 112: Negative or not required by law. Electronically signed by: Devante Temple M.D. 07/13/2020 11:20 AM
--- NOTE | 2020-07-13 12:29 | Hospitalist Progress Note ---
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 Sepsis, suspect community-acquired pneumonia Febrile, tachycardic, with leukocytosis on admission. Procalcitonin 0.98 Initial unclear source, patient with minimal respiratory symptoms no shortness of breath and no daytime cough UA with blood, protein, no bacteria leukocyte esterase. UC pending Renal ultrasound: The right kidney is normal in size and without hydronephrosis. The left kidney is not identified and reported surgically absent. The bladder was decompressed and could not be evaluated. Treated on admission with fluid boluses, IVFM, and empiric Vanco/cefepime. Cefepime narrowed to Rocephin. CXR: Airspace consolidation is seen at the left lung base in the retrocardiac region. Correlate clinically for evidence of pneumonia/aspiration pneumonitis. Renographic follow-up to resolution is recommended. MRSA nare negative, vancomycin discontinued Repeat CXR with lateral pending in a.m. Leukocytosis improving, patient febrile within last 24 hours. APAP 650 mg every 46 hours as needed Blood cultures pending Covid negative, influenza screen negative, RSV negative. Patient received 2 doses of Covid vaccine. Community-acquired pneumonia Chest x-ray as above Given minimal respiratory symptoms, and subtle findings on chest x-ray will repeat with lateral film in a.m. Continue Rocephin, discontinue vancomycin if MRSA screen negative BEAR Baseline creatinine of 1.62.3 Admitting creatinine 2.89. Down trended to 2.17 today with treatment as above Home antihypertensives held as below, anticipate resumption tomorrow if creatinine remains stable Hypothyroidism, suspect over repletion Patient with palpitations since Synthroid was increased from 50 to 75 mcg approximately 3 months ago TSH suppressed, 0.288. Initial dose held on admission. Given suppressed TSH, increased palpitations, and risk of osteoporosis recommend decreasing back to 50 mcg dose daily to be resumed tomorrow Hyperparathyroidism Elevated PTH as outpatient, bone density and additional screening pending as outpatient Calcium 9.8, within normal limits on admission Recommend continuing work-up as outpatient, do not recommend additional intervention as inpatient at this time Hypomagnesemia Repleted, slightly elevated to 2.6 today Continue fluid support as needed, no additional repletion at this time Hypertension Home HCTZ and losartan held in the setting of sepsis Creatinine improved, anticipate resuming tomorrow FEN: Patient completed NSS 100 cc/h, encourage oral at this time. Boluses as needed. DVT prophylaxis: Heparin CODE STATUS: DNR/DNI Dispo: Medical telemetry (2) Persistent headaches: (3) Hypothyroid: (4) Hypercalcemia: (5) Hypertension: (6) History of cancer: (7) Pneumonia: Admission and Anticipated Discharge Date Admission Date: July 12, 2020 Supervising Physician Co-Signing Physician Notes I saw the patient concurrent with the resident physician and confirmed leija portions of the history and physical examination. Agree with impression and plan as noted in the resident documentation. Briefly, 79-year-old female with history of CML in remission presenting with generalized illness. She describes poor sleep and generalized malaise, a few episodes of dizziness with gait instability, palpitations and a sensation of a fast heart rate. Upon presentation to the emergency department, she was found to be febrile, tachycardic with a leukocytosis of 14.14 with a neutrophilic predominance and lymphopenia. Her procalcitonin was mildly elevated at 0.98. A chest x-ray showed a questionable left-sided, retrocardiac infiltrate. She was started on empiric vancomycin and ceftriaxone and admitted to the general medical floor. This morning, she is without complaint. She really did not note significant upper respiratory symptoms prior to her admission; more of a generalized feeling of illness. It is noted that she has received a complete series of two COVID-19 vaccines, and her COVID-19 test upon admission was negative. In reviewing the outpatient chart, her Synthroid dose was recently increased from 25 mcg to 75 mcg after TSH was noted to be greater than 3 and she had some complaints consistent with under supplementation. Exam 133/72, 102, 20, 36.8, 93% on room air Pleasant alert. Heart slightly tachycardic, regular Lungs clear bilaterally Data WBC 13.41, hemoglobin 10.2, platelet count 135 BUN 47, creatinine 2.17. TSH 0.288, free T4 1.22 Procalcitonin 0.98 PCR for COVID-19, influenza A/B, and RSV are negative. Impression and plan Sepsis Acute kidney injury (history of CKD, stage III) Hypothyroidism CML in remission With negative nasal swab for MRSA, will de-escalate antibiotics. Check PA/lateral films in a.m. Hold Synthroid while hospitalized, then start reduced dose of 50 mcg daily Clinically she looks euvolemic so will encourage p.o. Repeat CBC and BMP in AM Subjective And is seen at the bedside this morning. She is alert, in no acute distress. She reports that she felt chilly last night and was a little bit warm this morning. Temperature of 38.4 at 2000 hrs. last night. This morning she reports she feels "not great ". Reports that she has increased fatigue, and has had some intermittent headache. She reports a rare cough overnight, no cough this morning. Denies dysuria, abdominal pain. She denies back pain, and no feeling like a kidney stone which she has had in the past. She endorses that she is had palpitations for several weeks since her Synthroid was increased. Review of Systems Review of Systems: Constitutional: See HPI Eyes: Denies vision change ENT: Denies ear pain, sore throat, sinus pain Cardiovascular: Denies chest pain, chest pressure. Endorses palpitations. Respiratory: Endorses nonproductive intermittent cough overnight, denies shortness of breath at rest. Gastrointestinal: Denies abdominal pain, nausea, vomiting, constipation, diarrhea Genitourinary: Denies dysuria, urinary frequency Integumentary:Denies acute rash, lesions, bruising Neurological: Headache as noted in HPI, denies numbness/tingling/focal weakness. Physical Exam Physical Exam: General: A&Ox3. NAD. Cooperative. HEENT: Atraumatic, normocephalic. Pulm: CTAB A&P. -wheezes, -rales, -rhonchi. Symmetrical chest rise. No increase work of breathing. No respiratory distress. Cardiac: Tachycardic, -mrg. Radial pulses intact and symmetrical. Abdominal: Nontender, nondistended, soft. BS present. Results & Data Results & Data ([facility]) Vital Signs (Past 12 Hours) Vital Signs Temp Pulse Pulse Resp BP BP Pulse Ox 07/13/20 11:52 37.1 C 108 H 20 128/73 91 07/13/20 07:41 115 H 07/13/20 07:40 37.6 C H 110 H 18 128/67 92 07/13/20 02:06 36.7 C 18 137/77 95 07/13/20 01:00 103 H 24 121/70 95 07/13/20 00:30 105 H 21 130/67 95 Resident Activity Tracking Resident Involvement: Resident Care Provided Care Provided: Adult [facility] (1) Hypothyroid Hypothyroidism type: unspecified Qualified Code(s): E03.9 - Hypothyroidism, unspecified (2) Sepsis Sepsis acute organ dysfunction status: unspecified Sepsis type: sepsis due to unspecified organism Qualified Code(s): A41.9 - Sepsis, unspecified organism (3) Hypertension Hypertension type: essential hypertension Qualified Code(s): I10 - Essential (primary) hypertension
[2020-07-13] MEDS ORDERED: oxyCODONE HCL IR 5 MG TAB (IMMEDIATE RELEASE) PO STA (16:18)
[2020-07-13] MEDS: DOCUSATE SODIUM 100 MG CAP PO SCH (20:29)
[2020-07-13] MEDS ORDERED: HYDROCODONE/ACETAMOPHEN 5/325MG TAB PO PRN (21:12)
[2020-07-13] MEDS: ACETAMINOPHEN 500 MG TAB PO PRN (21:31)
[2020-07-14] MEDS: cefTRIAXone SODIUM 1,000 MG in DEXTROSE 5% 50 ML IV SCH (05:37)
[2020-07-14] MEDS: LEVOTHYROXINE SODIUM 50 MCG TABLET PO SCH (05:37)
[2020-07-14 05:48] LABS: Basophils # (auto) 0.02 K/uL (0-0.2); Basophils % (auto) 0.1 %; Eosinophils # (auto) 0.01 K/uL (0-0.5); Eosinophils % (auto) 0.1 %; Hematocrit (blood only) 29.7 % (37-47); Hemoglobin 10.1 g/dL (12.0-16.0); Immature Granulocytes % (auto) 0.6 %; Lymphocytes # (auto) 0.69 K/uL (1.2-3.4); Lymphocytes % (auto) 3.9 %; Mean Platelet Volume 10.7 fL (7.4-10.4); Monocytes # (auto) 0.74 K/uL (0.11-0.59); Monocytes % (auto) 4.2 %; Neutrophils # (auto) 16.18 K/uL (1.4-6.5); Neutrophils % (auto) 91.1 %; Platelet Count 139 K/uL (130-400); RDW Coefficient of Variation 14.6 % (11.5-14.5); RDW Standard Deviation 49.8 fL (36.4-46.3); Red Blood Count 3.16 M/uL (4.2-5.4); White Blood Count 17.74 K/uL (4.8-10.8)
[2020-07-14 06:20] LABS: Sodium Random Urine 29 mmol/L; Urea Nitrogen, Urine Random 300 mg/dl
[2020-07-14 06:22] LABS: BUN Creatinine Ratio 20.4 (10-20); Calcium 9.9 mg/dl (8.5-10.1); Creatinine Clr Calc Pharmacy 22.2 ml/min; Est GFR (African American) 27.3; Est GFR (Non-African American) 23.6; Potassium 3.9 mmol/L (3.5-5.1)
--- NOTE | 2020-07-14 07:16 | Electrocardiogram Report ---
Test Reason : Blood Pressure : / mmHG Vent. Rate : 130 BPM Atrial Rate : 130 BPM P-R Int : 134 ms QRS Dur : 082 ms QT Int : 284 ms P-R-T Axes : 068 052 053 degrees QTc Int : 417 ms Sinus tachycardia Otherwise normal ECG When compared with ECG of 08-SEP-2018 14:01, Vent. rate has increased BY 57 BPM Confirmed by Juan Osuna ([id number]) on 07/14/2020 7:16:28 AM Referred By: REFERRED SELF Confirmed By:Juan Osuna
[2020-07-14] MEDS: CETIRIZINE HCL 10 MG TABLET PO SCH (08:43)
[2020-07-14] MEDS: PANTOprazole 40 MG TAB PO SCH (08:43)
[2020-07-14] MEDS: HEPARIN SOD 5,000 UNIT/0.5 ML VIAL SQ SCH ×2 (08:43→20:22)
--- NOTE | 2020-07-14 09:18 | XRay Report ---
XR chest 2V PA/lateral CLINICAL HISTORY: sepsis COMPARISON STUDY: Chest radiograph July 12, 2020. FINDINGS: Lung volumes are normal. There is no pneumothorax. Left lower lobe consolidation has signif icantly increased. There is a small left pleural effusion. There is no evidence for pulmonary edema. Cardiac size is normal. Mediastinal contours are normal. IMPRESSION: 1. Significant increase in left lower lobe consolidation consistent with pneumonia. Radiographic foll ow-up to ensure resolution is recommended. 2. Small left pleural effusion. ACT 112: Negative or not required by law. Electronically signed by: Av Martinez M.D. 07/14/2020 9:17 AM
[2020-07-14] MEDS: ACETAMINOPHEN 500 MG TAB PO PRN ×2 (10:44→21:13)
[2020-07-14 12:10] LABS: Basophils # (auto) 0.01 K/uL (0-0.2); Basophils % (auto) 0.1 %; Eosinophils # (auto) 0.03 K/uL (0-0.5); Eosinophils % (auto) 0.2 %; Hematocrit (blood only) 27.9 % (37-47); Hemoglobin 9.6 g/dL (12.0-16.0); Immature Granulocytes # (auto) 0.09 K/uL (0.00-0.02); Immature Granulocytes % (auto) 0.5 %; Lymphocytes # (auto) 0.58 K/uL (1.2-3.4); Lymphocytes % (auto) 3.2 %; Mean Corpuscular Hgb Conc 34.4 g/dL (32-36); Mean Platelet Volume 10.7 fL (7.4-10.4); Monocytes % (auto) 4.4 %; Neutrophils # (auto) 16.55 K/uL (1.4-6.5); Neutrophils % (auto) 91.6 %; Platelet Count 131 K/uL (130-400); RDW Coefficient of Variation 14.6 % (11.5-14.5); RDW Standard Deviation 49.4 fL (36.4-46.3); White Blood Count 18.06 K/uL (4.8-10.8)
--- NOTE | 2020-07-14 12:53 | Hospitalist Progress Note ---
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 Sepsis 2/2 community-acquired pneumonia Febrile, tachycardic, with leukocytosis on admission. Procalcitonin 0.98 Hemodynamically stable today Initial unclear source, patient with minimal respiratory symptoms no shortness of breath and no daytime cough UA with blood, protein, no bacteria leukocyte esterase. UC pending Renal ultrasound: The right kidney is normal in size and without hydronephrosis. The left kidney is not identified and reported surgically absent. The bladder was decompressed and could not be evaluated. - PNA tx as below Community Acquired PNA Treated on admission with fluid boluses, IVFM, and empiric Vanco/cefepime with cefepime narrowed to Rocephin and initial improvement. CXR: Airspace consolidation is seen at the left lung base in the retrocardiac region. Correlate clinically for evidence of pneumonia/aspiration pneumonitis. Repeat CXR with lateral: Progressive opacification of left lower lobe MRSA nare negative Uptrending leukocytosis 13 to 18 over 4 hours with chills Given uptrending leukocytosis and worsening opacification on repeat film expand coverage to cefepime/azithromycin and add a Legionella antigen. Given high sensitivity of MRSA nare with negative result will defer MRSA coverage at this time, but if patient continues to worsen or clinically declines would have a low threshold to add vancomycin. Blood cultures pending Covid negative, influenza screen negative, RSV negative. Patient received 2 doses of Covid vaccine. BEAR Baseline creatinine of 1.62.3 Admitting creatinine 2.89. Down trended to 1.9 Home antihypertensives as below Hypothyroidism, suspect over repletion Patient with palpitations since Synthroid was increased from 50 to 75 mcg approximately 3 months ago TSH suppressed, 0.288. Initial dose held on admission. Synthroid resumed at reduced dose, continue 50 mg daily Hyperparathyroidism Elevated PTH as outpatient, bone density and additional screening pending as outpatient Calcium 9.8, within normal limits on admission Recommend continuing work-up as outpatient, do not recommend additional in tervention as inpatient at this time Hypertension Home HCTZ and losartan held in the setting of sepsis, normotensive Creatinine improved, anticipate resuming tomorrow FEN: Patient completed NSS 100 cc/h, encourage oral at this time. Boluses as needed. DVT prophylaxis: Heparin CODE STATUS: DNR/DNI Dispo: Medical telemetry (2) Sepsis: (3) BEAR (acute kidney injury): (4) Hypomagnesemia: (5) Chronic myelogenous leukemia (CML), [id number]: Admission and Anticipated Discharge Date Admission Date: July 12, 2020 Supervising Physician Co-Signing Physician Notes I saw the patient concurrent with the resident physician and confirmed leija p ortions of the history and physical examination. Agree with impression and plan as noted in the resident documentation. This morning, patient states that she feels better. Per nursing, the patient has had a dry cough, although she knows the patient tends to minimize her symptoms. The patient states that the generalized illness that she felt previous has improved. She also feels as if her heart racing has resolved. Unfortunately, the patient's white blood cell count has risen and her repeat radiograph shows progression of her pneumonia. Exam 119/78, 95, 20, 36.4, 92% on room air Pleasant alert. Heart slightly tachycardic, regular Lungs left-sided, lower lobe crackles Data White blood cell count up to 18.06 BUN 40, creatinine 1.97 MRSA swab was negative. Blood and urine cultures from 07/12 showing no growth. Chest x-ray from today shows significant increase in left lower lobe consolidation and a small left pleural effusion Renal ultrasound from yesterday afternoon demonstrates right-sided kidney without hydronephrosis; surgically absent left-sided kidney. Impression and plan Sepsis Left lower lobe pneumonia Acute kidney injury (history of CKD, stage III) Hypothyroidism CML in remission Discontinue ceftriaxone, add cefepime and Zithromax Check Legionella antigen Resume Synthroid to 50 mcg daily Trend CBC and BMP Additional impression and plan per resident note Fadi Olson is seen at the bedside this morning. She feels well, and would like to go home but notes that she had some chills last night. Endorses a intermittent cough last night, none this morning. Denies lightheadedness, dizziness, difficulty breathing, syncope, presyncope, chest pain, dysuria, abdominal pain. Ate breakfast today without difficulty. Endorses intermittent chronic headache for which she cannot take NSAIDs partially improved with Tylenol and which has been improved with some [place] at home which has been prescribed following TMJ surgery. No visual changes. Review of Systems Review of Systems: All systems reviewed & are unremarkable except as noted in HPI & below Physical Exam Physical Exam: General: A&Ox3. NAD. Cooperative. HEENT: Atraumatic, normocephalic. Pulm: Left lower crackles. Symmetrical chest rise. No increase work of breathing. No respiratory distress. Cardiac: RRR, -mrg. Radial pulses intact and symmetrical. Abdominal: Nontender, nondistended, soft. BS present. Results & Data Results & Data ([facility]) Vital Signs (Past 12 Hours) Vital Signs Temp Pulse Pulse Resp BP Pulse Ox 07/14/20 11:47 37.5 C 92 H 20 126/75 93 07/14/20 07:30 84 07/14/20 07:17 36.4 C L 93 H 20 150/77 H 95 07/14/20 04:12 36.4 C L 87 20 127/68 94 07/14/20 01:25 120 H Resident Activity Tracking Resident Involvement: Resident Care Provided Care Provided: Adult [facility] (1) Chronic myelogenous leukemia (CML), [id number] Leukemia Active/Remission status: in remission Qualified Code(s): C92.11 - Chronic myeloid leukemia, BCR/ABL-positive, in remission (2) Sepsis Sepsis acute organ dysfunction status: unspecified Sepsis type: sepsis due to unspecified organism Qualified Code(s): A41.9 - Sepsis, unspecified organism
[2020-07-14] MEDS ORDERED: AZITHROMYCIN 500 MG in DEXTROSE 5% 250 ML IV ONE (13:15)
[2020-07-14] MEDS ORDERED: CEFEPIME 2,000 MG in SYRINGE 0 ML IV SCH (14:00)
[2020-07-14] MEDS: DOCUSATE SODIUM 100 MG CAP PO SCH (20:21)
[2020-07-15] MEDS: LEVOTHYROXINE SODIUM 50 MCG TABLET PO SCH (06:09)
[2020-07-15 07:36] LABS: Eosinophils # (auto) 0.06 K/uL (0-0.5); Eosinophils % (auto) 0.4 %; Hematocrit (blood only) 26.5 % (37-47); Hemoglobin 9.2 g/dL (12.0-16.0); Immature Granulocytes # (auto) 0.05 K/uL (0.00-0.02); Immature Granulocytes % (auto) 0.4 %; Lymphocytes # (auto) 0.66 K/uL (1.2-3.4); Lymphocytes % (auto) 4.7 %; Mean Corpuscular Hemoglobin 32.1 pg (25-34); Mean Corpuscular Hgb Conc 34.7 g/dL (32-36); Mean Corpuscular Volume 92.3 fL (80-100); Mean Platelet Volume 11.1 fL (7.4-10.4); Monocytes # (auto) 0.67 K/uL (0.11-0.59); Monocytes % (auto) 4.8 %; Neutrophils # (auto) 12.63 K/uL (1.4-6.5); Neutrophils % (auto) 89.7 %; Platelet Count 149 K/uL (130-400); RDW Coefficient of Variation 14.7 % (11.5-14.5); RDW Standard Deviation 50.1 fL (36.4-46.3); Red Blood Count 2.87 M/uL (4.2-5.4); White Blood Count 14.07 K/uL (4.8-10.8)
[2020-07-15] MEDS: HEPARIN SOD 5,000 UNIT/0.5 ML VIAL SQ SCH (07:51)
[2020-07-15] MEDS: CETIRIZINE HCL 10 MG TABLET PO SCH (07:51)
[2020-07-15] MEDS: PANTOprazole 40 MG TAB PO SCH (07:51)
[2020-07-15 08:09] LABS: Calcium 10.7 mg/dl (8.5-10.1); Creatinine Clr Calc Pharmacy 20.7 ml/min; Est GFR (African American) 25.2; Est GFR (Non-African American) 21.7; Potassium 3.8 mmol/L (3.5-5.1)
[2020-07-15] MEDS ORDERED: ASPIRIN 81 MG ECTAB PO SCH (09:00)
--- NOTE | 2020-07-15 09:26 | Hospitalist Progress Note ---
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 Sepsis 2/2 community-acquired pneumonia Febrile, tachycardic, with leukocytosis on admission. Procalcitonin 0.98 Hemodynamically stable today Initial unclear source, patient with minimal respiratory symptoms no shortness of breath and no daytime cough UA with blood, protein, no bacteria leukocyte esterase. UC pending Renal ultrasound: The right kidney is normal in size and without hydronephrosis. The left kidney is not identified and reported surgically absent. The bladder was decompressed and could not be evaluated. - PNA tx as below Community Acquired PNA Treated on admission with fluid boluses, IVFM, and empiric Vanco/cefepime with cefepime narrowed to Rocephin and initial improvement. CXR: Airspace consolidation is seen at the left lung base in the retrocardiac region. Correlate clinically for evidence of pneumonia/aspiration pneumonitis. Repeat CXR with lateral: Progressive opacification of left lower lobe MRSA nare negative Uptrending leukocytosis 13 to 18 over 4 hours with chills Given uptrending leukocytosis and worsening opacification on repeat film expand coverage to cefepime/azithromycin and add a Legionella antigen. Given high sensitivity of MRSA nare with negative result will defer MRSA coverage at this time, but if patient continues to worsen or clinically declines would have a low threshold to add vancomycin. Blood cultures pending Covid negative, influenza screen negative, RSV negative. Patient received 2 doses of Covid vaccine. BEAR Baseline creatinine of 1.62.3 Admitting creatinine 2.89. Down trended to 1.9 Home antihypertensives as below Hypothyroidism, suspect over repletion Patient with palpitations since Synthroid was increased from 50 to 75 mcg approximately 3 months ago TSH suppressed, 0.288. Initial dose held on admission. Synthroid resumed at reduced dose, continue 50 mg daily Hyperparathyroidism Elevated PTH as outpatient, bone density and additional screening pending as outpatient Calcium 9.8, within normal limits on admission Recommend continuing work-up as outpatient, do not recommend additional in tervention as inpatient at this time Hypertension Home HCTZ and losartan held in the setting of sepsis, normotensive Creatinine improved, anticipate resuming tomorrow FEN: Patient completed NSS 100 cc/h, encourage oral at this time. Boluses as needed. DVT prophylaxis: Heparin CODE STATUS: DNR/DNI Dispo: Medical telemetry (2) BEAR (acute kidney injury): (3) Hypomagnesemia: (4) Chronic myelogenous leukemia (CML), [id number]: Admission and Anticipated Discharge Date Admission Date: July 12, 2020 Results & Data Results & Data ([facility]) Vital Signs (Past 12 Hours) Vital Signs Temp Pulse Pulse Resp BP BP Pulse Ox 07/15/20 06:47 36.4 C L 81 20 130/70 96 07/15/20 03:52 36.7 C 83 20 126/88 93 07/14/20 23:57 87 07/14/20 22:53 36.2 C L 91 H 18 95/65 L 125/75 94 (1) Chronic myelogenous leukemia (CML), [id number] Leukemia Active/Remission status: in remission Qualified Code(s): C92.11 - Chronic myeloid leukemia, BCR/ABL-positive, in remission
[2020-07-15] MEDS ORDERED: AZITHROMYCIN 250 MG TAB PO SCH (11:45)
[2020-07-15] MEDS ORDERED: AZITHROMYCIN 250 MG in DEXTROSE 5% 250 ML IV SCH (12:00)
--- NOTE | 2020-07-15 12:31 | Discharge Summary ---
Date of Service July 15, 2020 Admission HPI Per Admitting Provider Natasha Li is a 79yo female with history of CML in remission presenting with feeling of illness. Patient reports having steroid injections in her shoulders performed on 07/10/20. Since then she has been experiencing poor sleep and feeling ill. She has also had episodes of dizziness, gait instability, palpitations and tachycardia, poor appetite. She states she has lost 6 pounds in the last 4 days. She reports three episodes where her legs gave out while she was walking. Also several near syncopal events. Patient febrile, tachycardic and tachypneic on arrival to the ER. ER Course: Cefepime, Vancomycin Principal Diagnosis Pneumonia Discharge Exam Constitutional WD/WN, vitals as above Eyes PERRL, conjunctivae normal, anicteric sclerae Respiratory normal respiratory effort; no respiratory distress Auscultation: + rhonchi (LLL); no crackles, no rales and no wheezes Cardiovascular Rate/Rhythm: regular rate and regular rhythm Heart Sounds: no gallop, no murmur and no cardiac rub Vessels: normal peripheral pulses; no JVD Extremities: no edema Gastrointestinal (Abdomen) Inspection/Auscultation: normal bowel sounds; abdomen not distended Percussion/Palpation: abdomen soft; abdomen nontender and no guarding Musculoskeletal no cyanosis or clubbing, extremities motor strength 5/5 Skin no rashes, warm and dry Neurologic PERRL, EOMI, accommodation nl, no face palsy, no dysarthria CN's II-XI intact bilaterally and moves all extremities Psychiatric Orientation: alert and oriented x 3 Discharge Data Allergies Allergy/AdvReac Type Severity Reaction Status Date / Time banana Allergy Severe "ITCHY Verified 07/12/20 23:09 THROAT" povidone-iodine Allergy Severe BLISTERS Verified 07/12/20 23:09 cantaloupe Allergy Intermediate ITCHY Verified 07/15/20 12:13 THROAT coconut Allergy Intermediate Rash Verified 07/12/20 23:09 morphine Allergy Intermediate Swelling,VO Verified 07/12/20 23:09 MITING Penicillins Allergy Intermediate Rash Verified 07/12/20 23:09 (Tolerates Cephalosporins) sesame oil Allergy Intermediate Rash from Verified 07/12/20 23:09 sesame seeds Tetracyclines Allergy Intermediate Rash Verified 07/12/20 23:09 ciprofloxacin Allergy Unknown Unknown Verified 07/12/20 23:09 clindamycin Allergy Unknown RASH Verified 07/12/20 23:09 meperidine Allergy Unknown POS SKIN Verified 07/12/20 23:09 TEST sesame seed Allergy Rash Verified 07/12/20 23:09 adhesive AdvReac Severe BLISTERS Verified 07/12/20 23:09 aspirin AdvReac Intermediate Nosebleed/subconjunctival Verified 07/12/20 23:09 hemorrhage hydromorphone AdvReac Intermediate Vomiting Verified 07/12/20 23:09 ketorolac AdvReac Unknown d/t kidney Verified 07/12/20 23:09 issue NSAIDS (Non-Steroidal AdvReac Unknown d/t kidney Verified 07/12/20 23:09 Anti-Inflamma Consultations 07/12/20 23:05 ED Decision to Admit Stat Ordered Studies 07/12/20 21:01 CT head/brain wo con Urgent 07/13/20 02:02 US renal/blad retro comp Routine Hospital Course (1) Community acquired pneumonia: Natasha Li is a 79-year-old female with a past medical history of CML in remission following treatment with last Gleevec 1 year ago, asymptomatic renal stones, hypercalcemia and hyperparathyroidism, hypothyroidism who presented with "feeling ill "and who is admitted for sepsis suspected of pulmonary source. Sepsis 2/2 community-acquired pneumonia: Procalcitonin 0.98 with subsequent downtrend to 0.85 this AM Hemodynamically stable negative blood cultures Renal ultrasound: The right kidney is normal in size and without hydronephrosis. The left kidney is not identified and reported surgically absent. The bladder was decompressed and could not be evaluated. Community Acquired Pneumonia: Treated on admission with fluid boluses, IVFM, and empiric Vanco/cefepime with cefepime narrowed to Rocephin and initial improvement. CXR: Airspace consolidation is seen at the left lung base in the retrocardiac region Repeat CXR with lateral: Progressive opacification of left lower lobe MRSA nares negative Uptrending leukocytosis 13 to 18 over 4 hours with chills, with subsequent downtrend prior to discharge Covid negative, influenza screen negative, RSV negative. Patient received 2 doses of Covid vaccine. -continue Cefdinir 300mg BID, and Azithromycin 250mg daily for the next 4 days Acute on Chronic Kidney Disease: Baseline creatinine of 1.62.3 Admitting creatinine 2.89 with downtrend Anemia: -likely secondary to CKD -patient utilizing Aranesp as outpatient for Hgb <12 -Hgb this AM of 9.2 -patient to take her home dose of Aranesp following discharge -potential multifactorial source of anemia, would necessitate further investigation as outpatient following recovery from infection Hypothyroidism: Patient with palpitations since Synthroid was increased from 50 to 75 mcg approximately 3 months ago TSH suppressed (0.288) Synthroid resumed at reduced dose, continue 50 mg daily Hyperparathyroidism: Elevated PTH as outpatient, bone density and additional screening pending as outpatient Calcium 9.8, within normal limits on admission Recommend continuing work-up as outpatient, do not recommend additional intervention as inpatient at this time Hypertension Home HCTZ and losartan (2) BEAR (acute kidney injury): (3) Hypomagnesemia: (4) Chronic myelogenous leukemia (CML), [id number]: Total Time Total Time Spent Total Time Spent (In Minutes): <30 Discharge Plan Discharge Items Patient Disposition: Home - Self-Care Reason For Visit: FEVER,SEPSIS Discharge Diagnosis: Pneumonia Activity: Per Instructions section Non-emergency contact: Primary Care Provider Call non-emergency contact if: you have any medication questions, your symptoms worsen and you have a fever Follow-up/Referrals: Olivia Hernandez MD [Resident] - 07/19/20 10:30 am Diet: Regular Addtl Attending Provider Instructions: You were seen and admitted for concerns of progressive fatigue, during this evaluation it was noticed that you had developed a pneumonia that was likely the source of your fatigue. For this you were started on antibiotics and while on these medications you had progressive improvement. Now that you are being discharged you are going to be continued on these medications for the coming four days as your infection continues to resolve. When dealing with larger infections like a pneumonia, it can take several weeks to fully recover your energy to the point of feeling more like your previously normal self. Later this week you will have follow-up in the [facility] where you typically see Dr. Vargas. Pending Studies at Discharge: No Stand-Alone Forms: [employer], Smoking Cessation Medications and DC Order Prescriptions: New azithromycin 250 mg Tablet 250 mg PO QAM 4 Days Qty: 4 RF: 0 cefdinir 300 mg Capsule 300 mg PO BID 4 Days Qty: 8 RF: 0 Continued (DME) BD Safety-Yvon Detachable Needl 3 mL 25 gauge x 5/8" syringe See Dose Instructions .ROUTE .MEDSUPPLY Qty: 10 RF: 2 cyanocobalamin (vitamin B-12) 1,000 mcg/mL solution 1,000 mcg IM MONTHLY Qty: 3 RF: 3 Aranesp (in polysorbate) 200 mcg/mL solution 200 mcg subcut .COMPLEX Qty: 3 RF: 1 potassium citrate 10 mEq (1,080 mg) tablet extended release 1,080 mg PO BID Qty: 180 RF: 3 (DME) BD Integra Syringe 3 mL 25 gauge x 1" syringe See Dose Instructions .ROUTE .MEDSUPPLY Qty: 3 RF: 4 losartan 100 mg tablet 100 mg PO DAILY Qty: 90 RF: 3 docusate sodium 100 mg capsule 100 mg PO HS RF: 0 hydrochlorothiazide 25 mg tablet 25 mg PO 2XWK RF: 0 cetirizine 10 mg tablet 10 mg PO DAILY RF: 0 aspirin 81 mg tablet,delayed release (DR/EC) 81 mg PO 2XWK RF: 0 hydrocodone-acetaminophen 5-300 mg tablet 2 tab PO Q4H PRN (Reason: Pain) RF: 0 levothyroxine 75 mcg capsule 75 mcg PO DAILY RF: 0 cholecalciferol (vitamin D3) [Vitamin D3] 1,000 unit Capsule 1,000 unit PO HS RF: 0 omeprazole magnesium [Prilosec OTC] 20 mg Tablet,Delayed Release (Dr/Ec) 20 mg PO QAM RF: 0 PreserVision AREDS-2 166-250-85-1 nh-[id number]-bc-mg Capsule 1 tab PO BID RF: 0 multivitamin Tablet 1 tab PO HS RF: 0 cephalexin 500 mg capsule 2,000 mg PO DIRECTED PRN (Reason: 1 HOUR PRIOR TO PROCEDURES) RF: 0 Discharge Orders: Discharge Order (Routine); Ordered 07/15/20 Ordered By: Emeka Liu Admission Data Admit Date/Time: 07/12/20 23:52 Attending Provider: Tomi Rodriguez Admit Provider: Kellen Smith Primary Care Provider: Josh Vargas Other Providers: Kellen Smith ; Sriram Campos Other Interventions: Discharge Summary Assessment (RN) Last Done: 07/15/20 11:55 Supervising Physician Co-Signing Physician Notes I personally examined the patient and verified all leija points of history and exam, discussed case, and agree with decision making with Dr Lui. Feeling better, feeling up to going home. No new complaints. Vitals noted, in general she is awake and alert pleasant no distress. HEENT normocephalic atraumatic mucous membranes moist. Breathing unlabored no accessory muscle use good effort. Skin shows no rashes no pallor or icterus. Lungs show diminished and slightly coarse breath sounds base left. Sepsis present on admission, due to community-acquired pneumonianow improving, stable for home. Finish out course of antibiotics, outpatient follow-up. Otherwise as above Resident Activity Tracking Resident Involvement: Resident Care Provided Care Provided: Adult Hospital Medicine
[2020-07-15] MEDS ORDERED: CEFEPIME 2,000 MG in SYRINGE 0 ML IV SCH (14:00)
--- NOTE | 2020-07-15 17:33 | Billing Data ---
Date of Service July 15, 2020 Coding Level of Care Code D/C Day Management <30 mins
[2020-07-15] MEDS ORDERED: CEFDINIR 300 MG CAP PO SCH (21:00)
== END 2020-07-15 13:28 | disposition home or self-care (01) | DRG 871 ==
LOC: ED 20:47 → 2N 23:52 → SUATTDRO 23:52 → 2N 07-13 01:14 → 2W 07-15 09:50

== ENCOUNTER 2024-05-29 14:21 | Inpatient (IN) ==
[2024-05-29 14:58] LABS: Basophils # (auto) 0.03 K/uL (0.00-0.20); Basophils % (auto) 0.2 %; Eosinophils # (auto) 0.11 K/uL (0.00-0.50); Eosinophils % (auto) 0.9 %; Hematocrit (blood only) 38.7 % (37.0-47.0); Hemoglobin 12.7 g/dl (12.0-16.0); Immature Granulocytes # (auto) 0.04 K/uL (0.01-0.20); Immature Granulocytes % (auto) 0.3 %; Lymphocytes # (auto) 1.36 K/uL (1.20-3.40); Mean Corpuscular Hgb Conc 32.8 g/dL (32.0-36.0); Mean Corpuscular Volume 88.4 fL (80.0-100.0); Mean Platelet Volume 11.7 fL (9.4-12.4); Monocytes # (auto) 0.63 K/uL (0.11-0.59); Monocytes % (auto) 5.1 %; Neutrophils # (auto) 10.19 K/uL (1.40-6.50); Neutrophils % (auto) 82.5 %; Platelet Count 116 K/uL (130-400); RDW Coefficient of Variation 14.7 % (11.5-14.5); RDW Standard Deviation 47.9 fL (36.4-46.3); Red Blood Count 4.38 M/uL (4.20-5.40); White Blood Count 12.36 K/ul (4.8-10.8)
[2024-05-29 15:13] LABS: Albumin Globulin Ratio 1.2 (0.9-2); Albumin Level 3.8 gm/dl (3.4-5.0); BUN Creatinine Ratio 20.4 (10-20); Bilirubin,Total 0.4 mg/dl (0.2-1.0); Calcium 10.1 mg/dl (8.6-10.3); Creatinine Clr Calc Pharmacy 21.5 ml/min; Globulin 3.1 gm/dl (2.5-4.0); Potassium 3.9 mmol/L (3.5-5.1); Total Protein 6.9 gm/dl (6.0-8.3)
--- NOTE | 2024-05-29 16:12 | Ultrasound Report ---
Clinical History: Redness and swelling Technique: Venous ultrasound evaluation was performed utilizing grayscale, color Doppler and wave form evaluation. Images were also obtained with and without compression Findings: The common femoral, superficial femoral, popliteal, and visualized calf veins demonstrate normal anechoic lumens with full compressibility. Normal flow is seen on color Doppler images. Expected waveforms were produced with augmentation maneuvers There are mildly prominent right inguinal lymph nodes with fatty nirmala, likely benign Impression: 1. No evidence of deep venous thrombosis 2. Mild right inguinal adenopathy Electronically signed by John Mcgill 05-29-2024 4:11 PM
--- NOTE | 2024-05-29 16:49 | Emergency Department Note ---
Impression & Plan Cellulitis of right leg ED Provider Note HISTORY OF PRESENT ILLNESS: Patient is an 83-year-old female presenting with right leg pain, redness and swelling. Patient was referred to the emergency department due to concern for potential DVT. Patient reports that in early April 2024, [place] her went to step over her and his leg got caught on her leg and caused a wound to develop. She reports that she was seen at a [facility] at that time and started on 5 days of Keflex prophylactically. She states that the wound has been very slow to heal over the last month. She states that 3 days ago she had significant redness and swelling develop around the wound and on her right lower leg. She states that she was seen in the emergency department and she was started on doxycycline. She states her tetanus is up-to-date. She states that she had a follow-up at [facility] today and given her worsening pain, swelling and redness, they referred her for an ultrasound. Patient denies any DVT or PE history. She is not on any anticoagulation or antiplatelet therapy. Reports intense pain to the right lower leg that travels up her medial right side into her groin. She states that she feels a lump in her groin. ROS: as above PHYSICAL EXAM: Constitutional: Patient appears in no acute distress. HENT: Head: Normocephalic and atraumatic. Eyes: EOMI, PERRL Mouth/Throat: Mucous membranes moist. Neck: Trachea midline. Neck supple. Cardiovascular: Tachycardic with regular rhythm. No murmurs, rubs or gallops. Intact distal pulses. Pulmonary/Chest: No respiratory distress. Breath sounds clear and equal bilaterally. No wheezes or rales. Abdominal: Abdomen soft, no tenderness, rebound or guarding. Musculoskeletal: No edema, tenderness or deformity noted. Skin: Warm and dry. Patient is noted to have diffuse erythema and +2 pitting edema to the right lower extremity. No palpable crepitus. The erythema extends diffusely over the anterior part of the right lower leg. Erythematous region is warm to the touch. Patient does have lymphangitis streaking up the medial right leg up into her groin. She has palpable lymph nodes in the groin that are tender to palpation. Noted to have a large wound with gaping on the anterior hernadez. Wound is crescent shaped without any obvious drainage. Psychiatric: Appropriate mood and affect for situation. Neurological: Alert and keenly responsive. CN II-XII grossly intact, moving all extremities equally and fully. MDM: - Vitals signs showed hypertension and tachycardia. - History obtained via patient. History as above. - Chronic conditions affecting care: GERD; anemia; thrombocytopenia - Differential diagnoses include, but are not limited to: DVT; necrotizing fasciitis; cellulitis; lymphangitis - Order placed for continuous cardiac monitoring. At this time, monitor showed rate of 86 bpm with normal sinus rhythm, per my interpretation. - External medical records reviewed. ED visit note from 05/27/2024 was reviewed. Patient was seen and diagnosed with cellulitis and started on doxycycline. - Laboratory workup interpreted by myself showed leukocytosis (WBC 12.36) with neutrophil predominance; slight hyponatremia (Na 135); CKD (Cr 1.57) - US RLE negative for DVT. Noted to have right inguinal adenopathy. - Discussed results with patient and at bedside. She has been on 2 days of doxycycline and had previously completed her dose of Keflex. She reports that in the last 48 hours her redness and swelling of her lower extremity have gotten worse and her pain is worse. Will admit for IV antibiotic therapy and wound care consult. Patient was given 1 g of IV Tylenol for pain management and given 2 g IV Rocephin and IV vancomycin for antibiotic coverage - Discussion was had with casey saw operator about patient's case and need for admission - Hospitalist consulted for admission - Patient admitted to [facility] service for further evaluation and management. ASSESSMENT AND PLAN: Diagnosis: Right lower extremity cellulitis Plan: Admit Past Med/Surg History Problem List (Updated 05/29/24 @ 17:04 by Violetta Meraz MD) Cellulitis of right leg (Acute) Cellulitis of right lower leg (Acute) Non-healing wound of right lower extremity (Acute) Unsteady gait Trigger finger Wrist arthritis Bony prominence Trochanteric bursitis of right hip Right hip pain Chronic SI joint pain Lumbar post-laminectomy syndrome History of left shoulder replacement Myofascial pain MCI (mild cognitive impairment) with memory loss Rotator cuff arthropathy of left shoulder Rotator cuff tear, right Lumbar facet joint syndrome History of lumbar fusion Disc degeneration, lumbar Scoliosis of lumbar region due to degenerative disease of spine in adult Chronic low back pain Compression fracture of L1 vertebra Rotator cuff tear, left Contusion of hip, left Hip pain Tendinitis of right rotator cuff S/P rotator cuff repair Avulsion fracture (Acute) Avulsion of finger tip (Acute) Chronic anemia (Chronic 09/26/12) Hypertension Abnormal CT scan, colon Status post total prosthetic replacement of knee joint using cement (Acute 09/26/12) Chronic renal insufficiency (Acute) 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, unilateral (Acute) Chronic myelomonocytic leukemia (Acute) History of bilateral knee replacement Hypercalcemia Persistent headaches Photophobia Tendinitis of both rotator cuffs Sepsis (Acute) BEAR (acute kidney injury) (Acute) Hypomagnesemia (Acute) History of cancer Community acquired pneumonia Left rotator cuff tear Fullness of breast Pneumonia 07/13 had fever and was dx with bacterial pnuemonia, no current issues Hypothyroid Greater trochanteric bursitis of left hip Chronic myelogenous leukemia (CML), [id number] 2002 - FOLLOW WITH [facility], in remission History of right hip replacement History of left hip replacement Barretts esophagus (Acute) Donor of kidney for transplant (Acute) Hypercholesterolemia (Acute) Low back pain (Acute 09/26/12) Maintenance chemotherapy (Acute) finished CML in remission Obesity (Acute 09/26/12) Polyp, colonic (Acute) Sciatica (Acute) Medical History History of anesthesia reaction had reaction to eye ointment. eye were fire burning feeling and much irritation prefers nothing to be put in eyes Nephrolithiasis hx Anemia Multifactorial, on Aranesp. 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 Family History Mother Alzheimer disease Osteoporosis Father COPD (chronic obstructive pulmonary disease) Brother Prostate cancer Denies family history of Ovarian cancer Breast cancer Colorectal cancer Social History Smoking Status: Former smoker Second Hand Exposure: No; Do You Dip or Chew Tobacco: No; Hx Alcohol Use: Yes Alcohol type: hard liquor Hx Substance Use: No Preferred Language: Vincentian Communication Ability: Effective Customer Service Manager Required: No Beliefs That Will Affect Care: None marital status: Current Living Situation: Spouse Feels Safe at Home: Yes Assistive Devices: Glasses Allergies Allergies Allergy/AdvReac Type Severity Reaction Status Date / Time banana Allergy Severe "ITCHY Verified 05/29/24 17:05 THROAT" povidone-iodine Allergy Severe BLISTERS Verified 05/29/24 17:05 cantaloupe Allergy Intermediate ITCHY Verified 05/29/24 17:05 THROAT coconut Allergy Intermediate Rash Verified 05/29/24 17:05 morphine Allergy Intermediate Swelling,VO Verified 05/29/24 17:05 MITING Penicillins Allergy Intermediate Rash Verified 05/29/24 17:05 (Tolerates Cephalosporins) sesame oil Allergy Intermediate Rash from Verified 05/29/24 17:05 sesame seeds Tetracyclines Allergy Intermediate Rash Verified 05/29/24 17:05 ciprofloxacin Allergy Unknown Unknown Verified 05/29/24 17:05 clindamycin Allergy Unknown RASH Verified 05/29/24 17:05 meperidine Allergy Unknown POS SKIN Verified 05/29/24 17:05 TEST sesame seed Allergy Rash Verified 05/29/24 17:05 adhesive AdvReac Severe BLISTERS Verified 05/29/24 17:05 aspirin AdvReac Intermediate Nosebleed/subconjunctival Verified 05/29/24 17:05 hemorrhage hydromorphone AdvReac Intermediate Vomiting Verified 05/29/24 17:05 ketorolac AdvReac Unknown d/t kidney Verified 05/29/24 17:05 issue NSAIDS (Non-Steroidal AdvReac Unknown d/t kidney Verified 05/29/24 17:05 Anti-Inflamma Home Meds Home Medications Medication Instructions Recorded Confirmed vit C 250 mg-vit E 90 mg-zinc 40 1 tab PO BID 09/08/18 05/29/24 mg-copper 1 [id number] capsule (PreserVision AREDS-2) multivitamin 1 tab PO QAM 07/12/20 05/29/24 epinephrine 0.3 mg/0.3 mL 0.3 mg IM ONCE PRN Allergic 01/21/23 05/29/24 injection, auto-injector Reaction levothyroxine 50 mcg capsule 50 mcg PO QAM 02/01/23 05/29/24 potassium citrate 99 mg capsule 99 mg PO QAM 12/20/23 05/29/24 omeprazole 20 mg capsule,delayed 20 mg PO BID 12/21/23 05/29/24 release clobetasol 0.05 % topical ointment 1 applic topical BID PRN Arm/Leg 05/29/24 05/29/24 Rash darbepoetin ortega in polysorbat 200 200 mcg subcut Q14D PRN HGB Below 05/29/24 05/29/24 mcg/mL in polysorbate injection 12 (Aranesp) furosemide 20 mg tablet 20 mg PO QAM PRN Edema 05/29/24 05/29/24 losartan 50 mg tablet 50 mg PO QAM 05/29/24 05/29/24 oxycodone 5 mg tablet 5 mg PO DAILY PRN Wound Pain 05/29/24 05/29/24 pravastatin 10 mg tablet 10 mg PO HS 05/29/24 05/29/24 turmeric 400 mg capsule 400 mg PO QAM 05/29/24 05/29/24 Previous Rx's Medication Instructions Recorded syringe with needle, safety 3 mL #10 ea 11/30/18 25 gauge x 5/8" (BD Safety-Yvon Detachable Needle) syringe with needle, safety 3 mL #3 ea 04/04/21 25 gauge x 1" (BD Integra Syringe) cyanocobalamin (vitamin B-12) 1,000 mcg IM MONTHLY #3 vials 09/16/23 1,000 mcg/mL injection solution doxycycline hyclate 100 mg capsule 100 mg PO BID 7 days #14 caps 05/27/24 Results & Data (ED) Vital Signs Vital Signs - 24 hr 05/29/24 14:25 05/29/24 17:06 Temperature 36.7 C Temperature Source Temporal Artery Scan Pulse Rate 111 H Pulse Rate [Finger] 86 Respiratory Rate 16 17 Respiratory Effort / Characteristics Non-Labored Spontaneous Non-Labored Spontaneous Respiratory Depth Normal Normal Respiratory Pattern Regular Blood Pressure 146/77 H Blood Pressure [Right Arm] 151/87 H Blood Pressure Mean 100 Blood Pressure Mean [Right Arm] 108 Blood Pressure Position [Right Arm] Sitting Pulse Oximetry 96 98 Oxygen Delivery Method Room Air Room Air Sepsis Recent Fever Within 48 Hours No Sepsis New/Unexplained Change in Mental Status N/A Sepsis Action Taken by Nursing No Action Required Laboratory Data 05/29/24 14:40 05/29/24 14:40 Lab Results 05/29/24 Range/Units 14:40 WBC 12.36 H (4.8-10.8) K/ul RBC 4.38 (4.20-5.40) M/uL Hgb 12.7 (12.0-16.0) g/dl Hct 38.7 (37.0-47.0) % MCV 88.4 (80.0-100.0) fL MCH 29.0 (25.0-34.0) pg MCHC 32.8 (32.0-36.0) g/dL RDW Std Deviation 47.9 H (36.4-46.3) fL RDW Coeff of Marco A 14.7 H (11.5-14.5) % Plt Count 116 L (130-400) K/uL MPV 11.7 (9.4-12.4) fL Immature Gran % (Auto) 0.3 % Neut % (Auto) 82.5 % Lymph % (Auto) 11.0 % [place] % (Auto) 5.1 % Eos % (Auto) 0.9 % Baso % (Auto) 0.2 % Neut # (Auto) 10.19 H (1.40-6.50) K/uL Lymph # (Auto) 1.36 (1.20-3.40) K/uL [place] # (Auto) 0.63 H (0.11-0.59) K/uL Eos # (Auto) 0.11 (0.00-0.50) K/uL Baso # (Auto) 0.03 (0.00-0.20) K/uL Immature Gran # (Auto) 0.04 (0.01-0.20) K/uL Sodium 135 L (136-145) mmol/L Potassium 3.9 (3.5-5.1) mmol/L Chloride 103 (98-107) mmol/L Carbon Dioxide 26 (21-32) mmol/L Anion Gap 6 (3-11) BUN 32 H (6-23) mg/dl Creatinine 1.57 H (0.6-1.2) mg/dl Est Cr Clr Drug Dosing 21.5 ml/min eGFR 32.53 BUN/Creatinine Ratio 20.4 H (10-20) Glucose 107 H (70-99(Fasting)) mg/dl Calcium 10.1 (8.6-10.3) mg/dl Total Bilirubin 0.4 (0.2-1.0) mg/dl AST 24 (13-39) U/L ALT 14 (7-52) U/L Alkaline Phosphatase 71 (34-104) U/L Total Protein 6.9 (6.0-8.3) gm/dl Albumin 3.8 (3.4-5.0) gm/dl Globulin 3.1 (2.5-4.0) gm/dl Albumin/Globulin Ratio 1.2 (0.9-2) Administered Medications Discontinued Medications Ceftriaxone Sodium (Rocephin) 2,000 mg in 50 mls @ 100 mls/hr IV NOW ONE Stop: 05/29/24 17:29 Last Admin: 05/29/24 17:40 Dose: 100 mls/hr Documented By: ELMA Acetaminophen (Ofirmev) 1,000 mg in 100 mls @ 400 mls/hr IV NOW STA Stop: 05/29/24 17:02 Last Infusion: 05/29/24 17:09 Dose: Infused Documented By: Admin: 05/29/24 16:53 Dose: 400 mls/hr Documented By: ELMA Imaging Data Radiologist's Impression: Venous Doppler Study 05/29/24 15:00 Clinical History: Redness and swelling Technique: Venous ultrasound evaluation was performed utilizing grayscale, color Doppler and wave form evaluation. Images were also obtained with and without compression Findings: The common femoral, superficial femoral, popliteal, and visualized calf veins demonstrate normal anechoic lumens with full compressibility. Normal flow is seen on color Doppler images. Expected waveforms were produced with augmentation maneuvers There are mildly prominent right inguinal lymph nodes with fatty nirmala, likely benign Impression: 1. No evidence of deep venous thrombosis 2. Mild right inguinal adenopathy Electronically signed by John Mcgill 05-29-2024 4:11 PM Discharge Plan Visit Data Chief Complaint: Infection Stated Complaint: INFECTION IN RT LEG, IMFLAMATION ED Provider: Violetta Meraz Discharge Problem: Cellulitis of right leg Forms Stand Alone Forms: [facility] Prescriptions Prescriptions: No Action (DME) BD Safety-Yvon Detachable Needl 3 mL 25 gauge x 5/8" syringe See Dose Instructions .ROUTE .MEDSUPPLY Qty: 10 2RF Dose Instruction: As directed Rx Instructions: Every other week with Aranesp injection (DME) BD Integra Syringe 3 mL 25 gauge x 1" syringe See Dose Instructions .ROUTE .MEDSUPPLY Qty: 3 4RF Dose Instruction: As directed Rx Instructions: Once monthly with B12 injection levothyroxine 50 mcg capsule 50 mcg PO QAM epinephrine 0.3 mg/0.3 mL auto-injector 0.3 mg IM ONCE PRN (Reason: Allergic Reaction) Rx Instructions: Pt states this is , will need a new script omeprazole 20 mg capsule,delayed release(DR/EC) 20 mg PO BID cyanocobalamin (vitamin B-12) 1,000 mcg/mL solution 1,000 mcg IM MONTHLY Qty: 3 3RF potassium citrate 99 mg capsule 99 mg PO QAM PreserVision AREDS-2 [id number] Capsule 1 tab PO BID multivitamin Tablet 1 tab PO QAM doxycycline hyclate 100 mg capsule 100 mg PO BID 7 Days Qty: 14 0RF Rx Instructions: Start Date 05/28/24 x7 day supply pravastatin 10 mg tablet 10 mg PO HS furosemide 20 mg tablet 20 mg PO QAM PRN (Reason: Edema) clobetasol 0.05 % ointment 1 applic TOPICAL BID PRN (Reason: Arm/Leg Rash) oxycodone 5 mg tablet 5 mg PO DAILY PRN (Reason: Wound Pain) losartan 50 mg tablet 50 mg PO QAM Aranesp (in polysorbate) 200 mcg/mL solution 200 mcg subcut Q14D PRN (Reason: HGB Below 12) Rx Instructions: 200 mcg subcut Q 2 weeks PRN HGB BELOW 12; turmeric 400 mg Capsule 400 mg PO QAM Referrals Referrals: Prateek Cooper [Primary Care Provider] -
[2024-05-29] MEDS: ACETAMINOPHEN 1,000 MG/100 ML VIAL IV STA (16:53)
[2024-05-29] MEDS: cefTRIAXone SODIUM 2,000 MG/50 ML BAG IV ONE (17:40)
--- NOTE | 2024-05-29 17:56 | History & Physical Report ---
Date of Service May 29, 2024 Assessment & Plan (1) Cellulitis of right leg: (2) Non-healing wound of right lower extremity: (3) Hypertension: (4) Hypothyroid: (5) Hypercholesterolemia: Plan Patient is an 83 y/o f admitted for management of right LE cellulitis subsequent to open wound on said leg and failed outpatient oral therapy. Cellulitis - Likely related to open wound on right leg - S/p trial of Keflex and doxycycline PO as an outpatient w/o improvement - Given open wound and discharge, will manage with ceftriaxone IV - MRSA swab ordered; can add coverage if positive - Wound culture and wound care nurse consulted - Cellulitis area marked; can change abx to similar PO abx if improvement is noted - CBC and BMP in am Hypothyroidism - Continue home levothyroxine HTN - Continue home meds GERD - Continue PPI HLD - Continue statin History of Present Illness Chief Complaint: Right LE swelling and redness Primary Care Provider: Prateek Cooper Patient who comes to ED due to right LE swelling and redness. Patient states that 1 month ago, [place], and her [place] and fell, leading to a wound on the anterior-medial aspect of her right LE. She was managing her wound herself with ointments and gauze at home, but 1 week later she went to Urgent care. At that point she did not note any redness or swelling or tenderness, but wanted to ensure there wasn't anything else she would need to do. At this point she was give Keflex which she completed. On Wednesday (05/27/24), she noted the redness appearing for the first time as well as associated tenderness and warmth. She went to see her PCP who prescribed doxycycline which she was taking. She marked the redness in her leg with a pen herself at home and today noted that the redness was the same or was extended further. Also states her wound, which was drying up, may appear more humid today and has some discharge coming from it. She feels like she may have chills today but denies fevers, weakness, lightheadedness, syncope, chest pain, SOB, or any other associated sxs. ED Course: Given one time dose of Ceftriaxone and Vancomycin. Tylenol 1 gm IV x1. Labs/Imaging: CBC w/ leukocytosis of 12.36 with neutrophilic predominance, hgb of 12.7, and plat of 116. CMP with mild hyponatremia of 135, Cr of 1.5, LFTs unremarkable. Right venous doppler without DVT and showing mild right inguinal adenopathy (likely reactive). Medical History: [Reviewed] Medications: [Reviewed] Surgical History: [Reviewed] Family history: [Reviewed] Allergies: [Reviewed] Social History: [Reviewed] Code Status: FULL Allergies Allergy/AdvReac Type Severity Reaction Status Date / Time banana Allergy Severe "ITCHY Verified 05/29/24 17:05 THROAT" povidone-iodine Allergy Severe BLISTERS Verified 05/29/24 17:05 cantaloupe Allergy Intermediate ITCHY Verified 05/29/24 17:05 THROAT coconut Allergy Intermediate Rash Verified 05/29/24 17:05 morphine Allergy Intermediate Swelling,VO Verified 05/29/24 17:05 MITING Penicillins Allergy Intermediate Rash Verified 05/29/24 17:05 (Tolerates Cephalosporins) sesame oil Allergy Intermediate Rash from Verified 05/29/24 17:05 sesame seeds Tetracyclines Allergy Intermediate Rash Verified 05/29/24 17:05 ciprofloxacin Allergy Unknown Unknown Verified 05/29/24 17:05 clindamycin Allergy Unknown RASH Verified 05/29/24 17:05 meperidine Allergy Unknown POS SKIN Verified 05/29/24 17:05 TEST sesame seed Allergy Rash Verified 05/29/24 17:05 adhesive AdvReac Severe BLISTERS Verified 05/29/24 17:05 aspirin AdvReac Intermediate Nosebleed/subconjunctival Verified 05/29/24 17:05 hemorrhage hydromorphone AdvReac Intermediate Vomiting Verified 05/29/24 17:05 ketorolac AdvReac Unknown d/t kidney Verified 05/29/24 17:05 issue NSAIDS (Non-Steroidal AdvReac Unknown d/t kidney Verified 05/29/24 17:05 Anti-Inflamma Home Medications Medication Instructions Recorded Confirmed Type vit C 250 mg-vit E 90 mg-zinc 40 1 tab PO BID 09/08/18 05/29/24 History mg-copper 1 [id number] capsule (PreserVision AREDS-2) syringe with needle, safety 3 mL #10 ea 11/30/18 05/15/24 Rx 25 gauge x 5/8" (BD Safety-Yvon Detachable Needle) multivitamin 1 tab PO QAM 07/12/20 05/29/24 History syringe with needle, safety 3 mL #3 ea 04/04/21 05/15/24 Rx 25 gauge x 1" (BD Integra Syringe) epinephrine 0.3 mg/0.3 mL 0.3 mg IM ONCE PRN Allergic 01/21/23 05/29/24 History injection, auto-injector Reaction levothyroxine 50 mcg capsule 50 mcg PO QAM 02/01/23 05/29/24 History cyanocobalamin (vitamin B-12) 1,000 mcg IM MONTHLY #3 vials 09/16/23 05/29/24 Rx 1,000 mcg/mL injection solution potassium citrate 99 mg capsule 99 mg PO QAM 12/20/23 05/29/24 History omeprazole 20 mg capsule,delayed 20 mg PO BID 12/21/23 05/29/24 History release doxycycline hyclate 100 mg capsule 100 mg PO BID 7 days #14 caps 05/27/24 05/29/24 Rx clobetasol 0.05 % topical ointment 1 applic topical BID PRN Arm/Leg 05/29/24 05/29/24 History Rash darbepoetin ortega in polysorbat 200 200 mcg subcut Q14D PRN HGB Below 05/29/24 05/29/24 History mcg/mL in polysorbate injection 12 (Aranesp) furosemide 20 mg tablet 20 mg PO QAM PRN Edema 05/29/24 05/29/24 History losartan 50 mg tablet 50 mg PO QAM 05/29/24 05/29/24 History oxycodone 5 mg tablet 5 mg PO DAILY PRN Wound Pain 05/29/24 05/29/24 History pravastatin 10 mg tablet 10 mg PO HS 05/29/24 05/29/24 History turmeric 400 mg capsule 400 mg PO QAM 05/29/24 05/29/24 History Past Med/Surg History Problem List (Updated 05/29/24 @ 17:04 by Violetta Meraz MD) Cellulitis of right leg (Acute) Cellulitis of right lower leg (Acute) Non-healing wound of right lower extremity (Acute) Unsteady gait Trigger finger Wrist arthritis Bony prominence Trochanteric bursitis of right hip Right hip pain Chronic SI joint pain Lumbar post-laminectomy syndrome History of left shoulder replacement Myofascial pain MCI (mild cognitive impairment) with memory loss Rotator cuff arthropathy of left shoulder Rotator cuff tear, right Lumbar facet joint syndrome History of lumbar fusion Disc degeneration, lumbar Scoliosis of lumbar region due to degenerative disease of spine in adult Chronic low back pain Compression fracture of L1 vertebra Rotator cuff tear, left Contusion of hip, left Hip pain Tendinitis of right rotator cuff S/P rotator cuff repair Avulsion fracture (Acute) Avulsion of finger tip (Acute) Chronic anemia (Chronic 09/26/12) Hypertension Abnormal CT scan, colon Status post total prosthetic replacement of knee joint using cement (Acute 09/26/12) Chronic renal insufficiency (Acute) 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, unilateral (Acute) Chronic myelomonocytic leukemia (Acute) History of bilateral knee replacement Hypercalcemia Persistent headaches Photophobia Tendinitis of both rotator cuffs Sepsis (Acute) BEAR (acute kidney injury) (Acute) Hypomagnesemia (Acute) History of cancer Community acquired pneumonia Left rotator cuff tear Fullness of breast Pneumonia 07/13 had fever and was dx with bacterial pnuemonia, no current issues Hypothyroid Greater trochanteric bursitis of left hip Chronic myelogenous leukemia (CML), [id number] 2002 - FOLLOW WITH [facility], in remission History of right hip replacement History of left hip replacement Barretts esophagus (Acute) Donor of kidney for transplant (Acute) Hypercholesterolemia (Acute) Low back pain (Acute 09/26/12) Maintenance chemotherapy (Acute) finished CML in remission Obesity (Acute 09/26/12) Polyp, colonic (Acute) Sciatica (Acute) Medical History History of anesthesia reaction had reaction to eye ointment. eye were fire burning feeling and much irritation prefers nothing to be put in eyes Nephrolithiasis hx Anemia Multifactorial, on Aranesp. 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 Family History Mother Alzheimer disease Osteoporosis Father COPD (chronic obstructive pulmonary disease) Brother Prostate cancer Denies family history of Ovarian cancer Breast cancer Colorectal cancer Social History Smoking Status: Former smoker Second Hand Exposure: No; Do You Dip or Chew Tobacco: No; Hx Alcohol Use: Yes Alcohol type: hard liquor Hx Substance Use: No Preferred Language: [place]i Communication Ability: Effective 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 Required: No Beliefs That Will Affect Care: None marital status: Current Living Situation: Spouse Feels Safe at Home: Yes Assistive Devices: Glasses Review of Systems Review of Systems: As per HPI Physical Exam Physical Exam: GENERAL: AAOx4, afebrile, NAD HEAD: AT, NC EYES: EOM intact, ARY, non injected conjunctiva THROAT: normal to visual inspection CHEST: symmetric chest expansions with respirations CARDIO: RRR, no r/m/g PULMONARY: CTA b/l, normal respiratory effort, no respiratory distress GI: soft, non distended, non tender EXTREMITIES: unremarkable left LE without skin changes or calf tenderness, right LE with erythema/warmth/tenderness extending from ankle to under her knee and around to the posterior aspect of her leg, also note an open wound on the medial aspect of her right LE that extends from 1-2 cm under her knee to 1-2 cm above her ankle, slight yellowish thick discharge in some parts of it Results & Data Results & Data Vital Signs (Past 12 Hours) Vital Signs Temp Pulse Pulse Resp BP BP Pulse Ox 05/29/24 17:06 86 17 151/87 H 98 05/29/24 14:25 36.7 C 111 H 16 146/77 H 96 O2 Del Method 05/29/24 17:06 Room Air 05/29/24 14:25 Room Air Supervising Physician Co-Signing Physician Notes I personally examined the patient and verified all leija points of history and exam, discussed case, and agree with decision making with Dr Bustos right lower extremity redness and swelling. Worsened over the weekend. Pain up middle thigh. Vitals noted, in general she is awake and alert pleasant no distress. HEENT normocephalic atraumatic mucous membranes moist. Right lower extremity has diffuse erythema along with a long open wound but no surrounding fluctuance or anything consistent with abscessthe erythema is tender. She also has lymphangitic streaking up her medial right thigh. Breathing unlabored no accessory muscle use good effort. neuro with no focal deficits. Labs and diagnostics noted. Right lower extremity cellulitis/lymphangitis and sepsis (white count greater than 12, heart rate greater than 90) present on admissionreason for failing outpatient treatment not entirely clearit is possible that it was strep (she was on Keflexbut this was prior to the cellulitis starting) given that she was on doxycycline and it does not I was covering for strep well; at the same time it is possible that it was a more resistant gram-positive such as MRSA with either was simply slow to respond to the doxycycline it was not covered by the doxycycline. Was given ceftriaxone and vancomycin in the ERwhich would obviously cover for all of the above plus gram-negative's. Will follow for improvement. Doubt culture results will be helpful, but obviously it would be quite beneficial if they showed something clear-cut. May need to send out on a combination treatment for strep and MRSA. Home once clearly doing better. DVT proph - renal dosed lovenox Resident Activity Tracking Resident Involvement: Resident Care Provided Care Provided: Adult Hospital Medicine (3) Hypertension Hypertension type: essential hypertension Qualified Code(s): I10 - Essential (primary) hypertension (4) Hypothyroid Hypothyroidism type: unspecified Qualified Code(s): E03.9 - Hypothyroidism, unspecified
[2024-05-29] MEDS: VANCOMYCIN HCL 1,250 MG in SODIUM CHLORIDE 0.9% 250 ML IV ONE (18:23)
--- NOTE | 2024-05-29 20:06 | Billing Data ---
Date of Service May 29, 2024 Coding Level of Care Code 53664 INT INP/OBS CARE
[2024-05-29] MEDS ORDERED: FUROSEMIDE 20 MG TAB PO PRN (20:51)
[2024-05-29] MEDS ORDERED: ONDANSETRON INJ 2 MG/ML 2 ML VIAL IV PRN (20:51)
[2024-05-29] MEDS ORDERED: POLYETHYLENE (MIRALAX) 17 GM PACK PO PRN (20:51)
--- OUTSIDE RECORDS SUMMARY | 2024-05-29 21:23 | External Medical Summary | Continuity of Care Document ---
Author Name Unknown Organization [facility] [address] Address [address] [place], [place] [id number] Care Team Providers Care Nurses Aide Name Role Phone Kenneth Prateek Primary Care Physician [phone] [facility]counter [facility] [id number] Date(s): 05/23/24 - 05/23/24 [facility] [address] [facility] [address], [address] [place], [place] [phone] Encounter Diagnosis Anemia, unspecified(Final) - Discharge Disposition: Home or Self Care Attending Physician: DO Mills Kevin Referring Physician: DO Mills Kevin Encounter Type: Clinic Allergies, Adverse Reactions, Alerts Substance Criticality Severity Reaction Reaction Severity Status ciprofloxacin mouth sores Acti ve tetracycline rash Active morphine swelling Active Zestril cough Active clindamycin rash Active famotidine unknown Active aspirin abd pain nosebleed and subconjunctival hemarrhage Active gabapentin dizziness Active lansoprazole 1 abdominal pain Active alendronate 2 severe, progre ssive joint pains Active melatonin daytime grogginess A ctive Keflex Itching Active Zantac headache Active Pepcid headache Active Betadine blisters Active Cleocin Vaginal Current - unspecified Active Procrit 3 severe joint aches A ctive Metamucil worse LLQ pain Activ e Citrucel worse LLQ pain Activ e Demerol HCl positive skin test Active Cats nasal congestion Act marguerite bananas itchy swollen throat Active Bactrim rash Active Dogs nasal congestion Act marguerite Grass nasal congestion Act marguerite Pollen nasal congestion Act marguerite Tape blisters Active seeds 4 rash Active Cymbalta Urine retention and constipation Active PCN (penicillin) 5 rash A ctive Prolia side effects pe r patient Active coconut Rash Active Nucynta unknown Active Nucynta ER new pain, not s afe to drive, loss of balance Active DULoxetine excess sleepine ss, but did help Active 1tolerates omeprozole 2even 10 mg once a month caused severe back, hip, hand pain 3got worse on the second dose than the first 4Sesame Seeds 5tolerates cephalosporins without difficulty Immunizations Given and Recorded Vaccine Date Status Refusal Reason RSV vaccine, preF A-preF B, recombinant 01/28/24 R ecorded RSV vaccine preF3, recombinant 01/28/24 Recorded influenza virus vaccine, inactivated 01/14/23 Og rded influenza virus vaccine, inactivated 11/25/21 Og rded influenza virus vaccine, inactivated 01/05/21 Give n influenza virus vaccine, inactivated 12/29/19 Give n influenza virus vaccine, inactivated 12/29/19 Give n influenza virus vaccine, inactivated 12/08/18 Og rded influenza virus vaccine, inactivated 12/22/17 Give n influenza virus vaccine, inactivated 12/24/16 Give n influenza virus vaccine, inactivated 12/17/15 Give n influenza virus vaccine, inactivated 12/05/14 Give n influenza virus vaccine, inactivated 01/04/14 Give n influenza virus vaccine, inactivated 12/12/12 Give n influenza virus vaccine, inactivated 12/11/11 Give n SARS-CoV-2 (COVID-19) mRNA-vacc - [id number] 1 12/29/22 Recorded tetanus/diphtheria/pertuss, acel (Tdap) 05/13/22 G iven tetanus/diphtheria/pertuss, acel (Tdap) 02/21/13 R ecorded SARS-CoV-2 mRNA (Pfizer 12+) bivalent 02/09/22 Rec orded pneumococcal 20-valent conjugate vaccine 2 09/01/21 Recorded SARS-CoV-2 (COVID-19) mRNA BNT-162b2 vax 3 11/20/20 Recorded SARS-CoV-2 (COVID-19) mRNA BNT-162b2 vax 4 05/14/20 Recorded SARS-CoV-2 (COVID-19) mRNA BNT-162b2 vax 5 04/23/20 Recorded zoster vaccine, inactivated 6 08/18/19 Recorded zoster vaccine, inactivated 04/10/19 Recorded pneumococcal 13-valent vaccine 01/04/14 Given zoster vaccine live 08/27/10 Recorded zoster vaccine live 7 08/20/09 Recorded pneumococcal 23-valent vaccine 01/13/06 Recorded tetanus toxoids-diphtheria, Td (Adult) 10/27/04 Re corded 1Result Comment: 2023-01-28: Historical information-source unspecified 2Result Comment: 2023-01-28: Historical information-source unspecified 3Result Comment: 2021-06-12: Historical information-source unspecified 4Result Comment: 2020-07-13: Historical information-source unspecified 5Result Comment: 2020-07-13: Historical information-source unspecified 6Result Comment: Given at [facility] 7Result Comment: 2020-07-13: Historical information-source unspecified Medications aluminum hydroxide-magnesium carbonate 254 mg-237.5 mg/5 mL oral suspension Start: 08/05/17 2:58:00 PM EDT, 15 mL, PO, pc and hs, Disp# 355 mL, Refills: 10, PRN: Heartburn, given to patient Start Date: 08/05/17 Status: Ordered Quantity: 355.0 Unit: mL Repeat number: 11 betamethasone dipropionate 0.05% topical cream Start: 09/25/22 11:31:00 AM EDT, 1 appl, topical, bid, Disp# 50 g, Refills: 1, To rash on legs BID 2 to 3 weeks, Pharmacy: [facility] #[id number] Start Date: 09/25/22 Status: Ordered Quantity: 50.0 Unit: g Repeat number: 2 clobetasol 0.05% topical ointment Start: 04/03/24 5:00:00 PM EST, 1 appl, topical, bid, Disp# 30 g, apply a thin film on arm/leg rash,Pharmacy: [id number] Start Date: 04/03/24 Status: Ordered Quantity: 30.0 Unit: g Repeat number: 1 Colace 50 mg oral capsule Start: 06/03/23 3:41:00 PM EDT, 1 cap, PO, bid, Disp# 60 cap, PRN: as needed for constipation, Pharmacy: [facility] [place] Start Date: 06/03/23 Status: Ordered Quantity: 60.0 Unit: cap Repeat number: 1 EpiPen Auto-Injector 0.3 mg injectable kit Start: 04/06/14 12:22:49 PM EST, 0.3 mg =, IM, ONCE, Disp# 1 syringe, Refills: 2, PRN: as needed foranaphylaxis, Pharmacy: [id number] Start Date: 04/06/14 Status: Ordered Quantity: 1.0 Unit: syringe Repeat number: 3 furosemide 20 mg oral tablet Start: 08/02/23 9:21:00 AM EDT, 1 tab, PO, Daily, as needed for edema, wt increase. Usually takes once weekly Start Date: 08/02/23 Status: Ordered Repeat number: 1 levothyroxine 50 mcg (0.05 mg) oral tablet Start: 10/18/23 11:47:00 AM EDT, 1 tab, PO, Daily, Disp# 90 tab, Refills: 3, Pharmacy: [facility][id number] Start Date: 10/18/23 Stop Date: 10/12/24 Status: Ordered Quantity: 90.0 Unit: tab Repeat number: 4 Indication: Hypothyroidism, unspecified losartan 50 mg oral tablet Start: 01/28/23 4:10:00 PM EST, 1 tab, PO, Daily Start Date: 01/28/23 Status: Ordered Repeat number: 1 magnesium citrate Start: 05/07/23 9:49:00 AM EST, PO, Daily Start Date: 05/07/23 Status: Ordered Repeat number: 1 omeprazole 20 mg oral delayed release capsule Start: 05/10/24 7:19:00 AM EST, 1 cap, PO, bid, Disp# 180 cap, Refills: 4, Pharmacy: [facility][id number] Start Date: 05/10/24 Stop Date: 08/03/25 Status: Ordered Quantity: 180.0 Unit: cap Repeat number: 5 ondansetron 4 mg oral tablet Start: 06/03/23 3:41:00 PM EDT, 1 tab, PO, bid, Disp# 6 tab, PRN: as needed for nausea/vomiting, Pharmacy: [facility] [place] Start Date: 06/03/23 Stop Date: 06/06/23 Status: Ordered Quantity: 6.0 Unit: tab Repeat number: 1 oxyCODONE 5 mg oral tablet Start: 05/15/24 5:02:00 PM EST, 1 tab, PO, Daily, Disp# 20 tab, Refills: 0, PRN: NEEDED FOR PAIN NEEDED FOR WOUND PAIN, Pharmacy: [facility][id number] Start Date: 05/15/24 Status: Ordered Quantity: 20.0 Unit: tab Repeat number: 1 potassium citrate 10 mEq oral tablet, extended release Start: 11/18/20 12:05:00 PM EDT, 1 tab, PO, Daily, 1 tab PO daily Start Date: 11/18/20 Status: Ordered Repeat number: 1 pravastatin 10 mg oral tablet Start: 05/18/24 11:40:00 AM EST, 1 tab, PO, qhs, Disp# 90 tab, Refills: 3, Pharmacy: [facility][id number] Start Date: 05/18/24 Status: Ordered Quantity: 90.0 Unit: tab Repeat number: 4 PreserVision Start: 04/08/10 9:14:16 AM EST, 1 tab, PO, bid, Refills: 0, current medication from another provider Start Date: 04/08/10 Status: Ordered Repeat number: 1 turmeric Start: 12/23/23 8:31:00 AM EDT, 1 tab, PO, Daily Start Date: 12/23/23 Status: Ordered Repeat number: 1 Tylenol 500 mg oral tablet Start: 06/03/23 3:41:00 PM EDT, 1 tab, PO, q6h, Disp# 24 tab, PRN: as needed for pain, Pharmacy: [facility] [place] Start Date: 06/03/23 Stop Date: 06/13/23 Status: Ordered Quantity: 24.0 Unit: tab Repeat number: 1 ZyrTEC 10 mg oral tablet Start: 11/18/20 12:10:00 PM EDT, 1 tab, PO, Daily, PRN: as needed for allergy symptoms Start Date: 11/18/20 Status: Ordered Repeat number: 1 Problem List Condition Confirmation Course Effective Dates Status Health Status Informant Actinic keratosis Confirmed Active Allergy to insect stings Confirmed 12/23/12 Active ANEMIA Confirmed Active Aortic valve sclerosis Confirmed Active Xerosis cutis 1 Confirmed 04/03/24 Active High risk for hip fracture Confirmed Active Other atherosclerosis of [place] arteries of extremities, bilateral legs 2 Confirmed Active Dorsalgia, unspecified 3 Confirmed 01/17/24 Active 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 4 Confirmed Active Bleeding external hemorrhoids Confirmed Active BMI 29.0-29.9,adult Confirmed Active Changing skin lesion Confirmed Active Cholesterolosis of gallbladder Confirmed Active Hypertensive chronic kidney disease with stage 1 through stage 4 chronic kidney disease, or unspecified chronic kidney disease Confirmed Active Chronic kidney disease (CKD) stage G4/A1, severely decreased glomerular filtration rate (GFR) between 15-29 mL/min/1.73 square meter and albuminuria creatinine ratio less than 30 mg/g Confirmed Active Other chronic pain 5 Confirmed 04/03/24 Active Sinobronchitis Confirmed Active Vitamin B12 deficiency Confirmed Active Contact dermatitis Confirmed Active Pancreas cyst Confirmed Active Cyst of pancreas Confirmed Active Cystocele with prolapse Confirmed Active TMJ derangement 6 Confirmed Active Diverticulosis large intestine w/o perforation or abscess w/bleeding Confirmed Active Narcotic dependence Confirmed 08/14/20 Active Dysphagia Confirmed Active Eczema Confirmed Active Epigastric pain 7 Confirmed 01/17/24 Active Ex-smoker 8 Confirmed Active Excoriation Confirmed Active FAMILY HISTORY OF OTHER SPECIFIED MALIGNANT NEOPLASM 9 Confirmed Active Pain management counseling, encounter for Confirmed Active GERD Confirmed Active History of duodenal ulcer Confirmed Active History of dislocation of hip 10 Confirmed Active History of vertebral compression fracture Confirmed Active Pain in joints of unspecified hand 11 Confirmed 01/17/24 Active Stiffness of unspecified hand, not elsewhere classified 12 Confirmed 01/17/24 Active Rectocele Confirmed Active Hiatal hernia Confirmed Active Bilateral hip pain 13 Confirmed Active History of adenomatous polyp of colon Confirmed Active Hx of skin malignancy Confirmed Active History of left nephrectomy Confirmed Active History of parathyroidectomy Confirmed Active Hypercalcemia 14 Confirmed Active Hyperparathyroidism Confirmed Active HTN (hypertension) Confirmed Active Hypothyroid Confirmed Active Joint pain Confirmed Active Pain in joints of left hand 15 Confirmed 04/03/24 Active Pain in joints of right hand 16 Confirmed 04/03/24 Active Laceration of left index finger Confirmed Active Solitary right kidney 17 Confirmed Active LLQ abdominal pain Confirmed Active Lentigo Confirmed Active Episodic lightheadedness Confirmed Active Low back pain, unspecified 18 Confirmed 04/03/24 Active Low vision, both eyes Confirmed Active Increased MCV Confirmed Active MACULAR DEGENERATION (SENILE) OF RETINA, 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 Confirmed Active PPD positive 20 Confirmed Active Memory change Confirmed Active IPMN (intraductal papillary mucinous neoplasm) 21 Confirmed 10/23/13 Active Neoplasm of uncertain behavior of skin Confirmed Active Osteoarthrosis Confirmed Active Osteopenia Confirmed Active Pain in left shoulder Confirmed Active PERSONAL HISTORY OF OTHER MALIGNANT NEOPLASM OF SKIN 22 Confirmed Active Photophobia, bilateral Confirmed Active Post herpetic neuralgia Confirmed Active Post menopausal syndrome Confirmed Active Psoriasis vulgaris Confirmed Active Rectal bleeding Confirmed Active Recurrent falls Confirmed Active Left rotator cuff tear 23 Confirmed Active Pain of both sacroiliac joints Confirmed Active Sacroiliac pain Confirmed Active Seborrheic keratoses Confirmed Active Solar purpura Confirmed Active Left shoulder pain Confirmed Active Right shoulder pain Confirmed Active Skin ulcer Confirmed Active Sleep disturbance, unspecified Confirmed Active Snoring Confirmed Active Sun-damaged skin Confirmed Active Squamous cell carcinoma of left lower leg Confirmed Active Squamous cell cancer of skin of right forearm Confirmed Active Positive colorectal cancer screening using DNA-based stool test Confirmed Active Weight disorder Confirmed Active 1Added per Health Education Teacher Review--04/05/24 2See outside note 04/30/22- Reena Tello DPM 3Added per Health Education Teacher Review-01/20/24 4Left Inferior Orbital 5Added per Health Education Teacher Review-04/05/24 6bilateral 7Added per Health Education Teacher Review-01/20/24 8Quit age 52 9brother had history of melanoma 10left 11Added per Health Education Teacher Review-01/20/24 12Added per Health Education Teacher Review-01/20/24 13left > right 14after parathyroidectomy 15Added per Health Education Teacher Review-04/05/24 16Added per Health Education Teacher Review-04/05/24 17s/p left donation 18Added per Health Education Teacher Review-04/05/24 19bilateral, dry 20converter 2118 x 11 mm 22history of squamous cancer, acute myelogenous leukemia 23incomplete Procedures Procedure Date Related Diagnosis Body Site Status Shave biopsy 1 04/17/24 Completed Shave biopsy and cauterizati on of skin 2 12/23/23 Completed Mohs' micrographic surgery 10/18/23 Completed Shave biopsy 3 10/07/23 Completed EGD - esophagogastroduodenoscopy 4 09/30/23 Completed Shave biopsy of skin 5 11/10/22 Co mpleted Mohs micrographic surgery 08/25/22 Completed Electrodesiccation with curettage 08/06/22 Completed Shave biopsy and cauterization of skin 08/06/22 Completed Shave biopsy 6 07/06/22 Completed MRI of lumbar spine 7 06/30/22 Com pleted Mohs micrographic surgery 05/28/22 Completed EGD US EXAM DUODENUM/JEJUNUM 8 04/16/22 Completed Shave biopsy and cauterization of skin 03/31/22 Completed Plain X-ray of lumbar spine 9 03/30/22 Completed Exploration of parathyroid gland 2022 Completed Excision 02/05/22 Completed Shave biopsy and cauterization of skin 02/05/22 Completed Shave biopsy and cauterizati on of skin 11 01/08/22 Completed Plain X-ray of left hip 12 11/21/21 Completed Parathyroidectomy 13 08/06/21 Comp leted Shave biopsy and cauterization of skin 06/25/21 Completed MRI LEFT FOOT wo contrast 14 06/16/21 Completed Rotator cuff repair 15 03/20/21 Co mpleted Mohs micrographic surgery 01/22/21 Completed Shave biopsy and cauterization of skin 01/08/21 Completed Mohs micrographic surgery 16 11/15/20 Completed Reconstruction LLL 11/15/20 Comple maikel Thyroid scan 17 10/07/20 Completed Shave biopsy of skin 09/12/20 Comp leted Transthoracic echocardiography 18 07/02/20 Completed Shave biopsy of skin 05/23/20 Comp leted History of right hip replacement 03/01/20 Completed Surgery 02/23/20 Completed TMJ - Temporomandibular join t operation 19 02/23/20 Completed Mammogram 20 10/03/19 Completed Mohs surgery 21 05/24/19 Completed Shave biopsy and cauterization of skin 05/01/19 Completed Mohs micrographic surgery 03/06/19 Completed Shave biopsy of skin 01/03/19 Comp leted Mammogram 22 09/30/18 Completed left totaly knee replacement revision with revison of the tibial component 09/15/18 Completed Shave biopsy and cauterisation of skin 08/24/18 Completed Pathology report 04/06/18 Compl eted Colonoscopy 24, 25 03/2018 Comple maikel Transthoracic echocardiograp hy (procedure) 01/11/18 Completed Colonoscopy and extirpation of lesion of colon 26 01/07/18 Completed Colonoscopy 27, 28 11/17/17 Comple maikel MRI of abdomen 29 08/04/17 Complet ed Punch biopsy of skin lesion 30 10/12/16 Completed Colonoscopy 31 10/02/16 Completed Mohs micrographic surgery 09/02/16 Completed Mohs surgery- closure RLL 09/02/16 Completed Right Carpal tunnel release 32 08/26/16 Completed Shave biopsy and cauterizati on of skin 33 08/11/16 Completed Mohs surgery 07/08/16 Completed Shave biopsy and cauterizati on of skin 34 06/03/16 Completed Shave biopsy of skin 05/12/16 Comp leted Injection 2016 Completed Shave biopsy of skin 01/13/16 Comp leted Ultrasound scan of kidneys a nd bladder 35 12/12/15 Completed Upper GI endoscopy 36 10/22/15 Com pleted Shave biopsy of skin 09/26/15 Comp leted Excision 37 09/25/15 Completed Mammography 38, 39 09/19/15 Comple maikel Excision 40 08/28/15 Completed Mohs micrographic surgery 08/28/15 Completed Carpal tunnel release and tr igger finger release 41 08/07/15 Completed Shave biopsy and cauterizati on of skin 42 07/15/15 Completed US kidneys 43 05/30/15 Completed Cystoscopy- Removal of stent 04/24/15 Completed Cystoscopy 44 03/04/15 Completed Retrograde urogram 45 03/04/15 Com pleted Cystoscopy ,right retrograde pyelogram,right ureteroscopy, right ureteral stent 02/19/15 Completed Retrograde includes KUB 46 02/19/15 Completed Mohs surgery 02/11/15 Completed Shave biopsy 47 01/10/15 Completed PAP test date 10/29/14 Completed Upper GI endoscopy 10/23/14 Comple maikel MRI of pancreas 48 05/09/14 Comple maikel Fine needle aspiration of pancreas 49 02/01/14 Completed Upper GI endoscopy 50, 51 10/18/13 Completed Extracapsular cataract remov al with insertion of intraocular lens prosthesis (1 stage procedure), manual or mechanical technique (eg, irrigation and aspiration or phacoemulsification) 52 09/25/13 Complete d Mammography 53 09/14/13 Completed Extracapsular cataract remov al with insertion of intraocular lens prosthesis (1 stage procedure), manual or mechanical technique (eg, irrigation and aspiration or phacoemulsification) 54 09/11/13 Complete d Shave biopsy of skin 55 09/04/13 C ompleted Shave biopsy and cauterization of skin 01/16/13 Completed Mammogram 56 09/13/12 Completed right knee replaced 1/11/13 Compl eted left TKA 2010 Completed lumbar laminectomy L3-L4 , f usion with hardware- 57 2009 Completed colonoscopy 58 12/10/08 Completed Endoscopic ultrasound examin ation of pancreas and biopsy of lesion of pancreas 59 09/28/08 Completed left nephrectomy donation 08/30/95 Completed lumbar laminectomy L4-L5 1987 Completed [facility] BSO - Total abdominal hy sterectomy and bilateral salpingo-oophorectomy 60, 61 1969 Completed ED&C bowenoid AK Complete d left knee arthroscopy Com pleted left thumb ulnar alex. lig. repair Completed Mohs surgery Completed right knee arthroscopy Co mpleted right tennis elbow repair Completed Shave biopsy of skin 62 C ompleted tonsillar abscess I&D Com pleted 1right lateral brow 21. Left lat lower leg superior - ED&C 2. Left lat lower leg inferior 3left post lower leg 4Impression -Normal esophagus -Z-line regular, 35 cm from the incisors -Multiple gastric polyps. Resected and retrieved -Normal examined duodenum Pathology fundic polyps 51. left shoulder ED&C 2. right forearm ED&C 6right lateral lower leg Right ventral forearm right calf right lateral lower leg 7Impression: 1. Postoperative and spondylotic change as above. See discussion for detailed level by level analysis 2. Degenerative disc disease as above with multilevel degenerative endplate change/edema 3. There is a late subacute appearing superior endplate compression deformity of L1 with mild residual marrow edema. No retropulsed fragments are seen 4. No destructive bony lesion is identified 5. The left kidney is not identified and presumed surgically absent 8IMPRESSION: -There was no sign of significant pathology in the ampulla. -There was no sign of significant pathology in the common bile duct. -There was no sign of significant pathology in the gallbladder. -A cyst was found in the left lobe of the liver and measured 10mm by 6mm. -Endosonographic images of the eft adrenal gland were unremarkable. -A cystic lesion was seen in the pancreatic head. Fine needle aspiration for fluid performed. -A cystic lesion was seen in the pancreatic body. Tissue has not been obtained. However, the endosonographic appearance is suggestive of an intraductal papillary mucinous neoplasm. 9Impression: 1 Mild compression fracture of the superior endplate of L1. This is age indeterminate but new sinceradiograph Jan 06 2021 2. Stable postoperative findings following L3-L4 posterior decompression and bilateral pedicle screw fusion 3. Multlevel degenerative changes and levoscoliosis within the lumbar spine 10REMOVED TWO 111. Left lat leg post to A 2. Left lower lat leg 3. Left lat leg superior 12Impression: No fracture or dislocation within the left hip 13Left , two removed. 141. flexor hallucis longus tenosynovitis, just proximal to the intersection. 15left 16BCC left lower eyelid 17Unremarkable sonographic evaluation of the thyroid gland 18Normal L ventricular size woth hyperdynamic systolic function EF>70%. No regional wall motion abnormalities. Mild concentric left ventricular hypertrophy. Not significant valvular abnormalities visualized. Normal estimated righ ventricular systolic pressure. Compared to prior study on 05/30/2019 LV systolic function is now hyperdynamic. 19bilateral at [facility] 20There is no mammographic evidence of malignancy. 21Right Inferior Orbital 22there is no mammographic evidence of malignancy. a 1 yr screening is recommended 23Final diagosis COLOB, SIGMOID< HOT SNARE POLYPECTOMY: HYPERPLASTIC POLYP BK/mas 24no more needed per Case 25hyperplastic polyp 2622 mm tubular adenoma 27Three 5 to 8 mm polyps in the ascending colon, removed with a hot snare. Resected and retreived. One 35 mm polyp in the sigmoid colon. Biopsied. Tattooed. Severe diverticulosis in the sigmoid colon. There was no evidence of diverticular bleeding. Non bleeding internal hemorrhoids. Resume previous diet. Continue present medications. 28Pathology: A. Colon, ascending, polypectomies fragmets of tubular adenoma and sessile serrated adenoma. B. Colon, sigmoid, biopsies: fragments of tubulovillous adenoma. 29pancreatic cyst 30right wrist 31Impression: No mucosal lesion or significant polyps identified throughout the large bowel. 32right 33with ED&C 34x2 sites 351. There is no right-sided hydronephrosis 2. The left kidney is surgically absent 3. The bladder was normal as imaged 36Large pancreatic cyst in head, with smaller cysts in body and tail. Cyst in head has a minimally thickened wall. Dilated main pancreatic duct. 37Left Leg 38No malignany. One year screening recommended. 39There is no evidence of malignancy. A 1 year screening mammogram is recommended. 40left lower calf 41Vamshi Smith MD 423 sites nose left lower lat leg, and upper left back. 43Right kidney is normal in size and without hydronephrosis. Left kidney surgically absent. Bladder normal. 44Cystoscopy with right retrograde pyelogram and right ureteral stent placement. 45Right retrograde urogram includes KUB: Comparison stricture the level of right ureteropelvic junction. Right sided nephro ureteral stent placed. 46Retrograde and stent placement on the right 47x2 48Stable appearance of pancreatic head and body cystic lesions, likely side branch IPMNs. Stable milddilatation main pancreatic duct. Surgical changes s/p left nephrectomy. 4911mm cyst in body of pancreas. Neoplastic mucin producing cyst, which in the right clinic radiologic setting may represent an intraductal papillary mucinous neoplasm. 50A. Stomach, biopsy: Gastric antral and fundic mucosa, no significant pathological findings. The immunohistochemical stain for Helicobacter pylori- like microorganisms is negative. B. Stomach polyps, biopsy: Fundic gland polyps. 51Impressions: 1. Normal esophagus. Dilated to 48 Fr today. 2. Hiatus hernia. 3. Gastritis. Biopsied.(likely medication related) 4. Multiple gastric polyps. Biopsied. 5. Normal ampulla, duodenal bulb and 2nd part of the duodenum. 52Left eye 53WNL 54Right eye 55left lower lateral leg 56wnl 57lumbar 58unable to finish due to acute sigmoid angulation; had neg. ACBE in followup. 59-An 18 mm by 11 mm cystic lesion was seen in the pancreatic head. 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 Pathology Results: A. Pancreas, cyst, fine needle aspiration: Neoplasm indeterminate for malignancy. Mucin-producing neoplasm with mild to moderate atypia. No high grade dysplasia. Cellblock: The cellblock preparation shows similar findings. 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 No high grade dysplasia is seen. 60for enlarged uterus, fluid filled uterus 61for fibroids 62Many biopsies Results Laboratory List Name Date Hematocrit (HCT) 05/23/24 Hemoglobin Level (HGB) 05/23/24 Request to FAX Report (First Location) ( ACC NO TO BE FAXED) 05/23/24 Most recent to oldest [Reference Range]: 1 Phone No [phone] (05/23/24 11:31 AM) Faxed on: 05/24/24 10:03 (05/23/24 11:31 AM) Hct [35-44 %] 39.6 % (05/23/24 11:31 AM) Hgb [11.7-15.0 g/dL] 12.4 g/dL (05/23/24 11:31 AM) 1Result Comment: Testing Performed By: Dept of Pathology [facility] [address], [address] [place] [address] Social History Social History Type Response Tobacco Former smoker, Cigar ettes, 1 per day. Started age 18 Years. Stopped age 52 Years. Smoking Status Former Smoker, quit > 1 yr Sex Female Sex Representation Female (finding) Implantable Device List Procedure Provider Procedure Date Device Type Site Unknown Unknown 06/03/23 Unknown Unknown Device Identifier Serial Number Lot or Batch Number Manufacturing Date Expiration Date Distinct Identification Code MRI Safety Implantable Status Assigning Authority Unknown Unknown [id number] Unknown 03/21/27 Unknown Unknown Active Unknown Unknown Unknown [id number] Unknown 12/20/27 Unknown Unknown Active Unknown Unknown Unknown [id number] 1 Unknown 03/21/28 Unknown Unknown Active Unknown Unknown Unknown [id number] Unknown 03/21/28 Unknown Unknown Active Un known Unknown Unknown 6030597 7 Unknown 01/20/28 Unknown Unknown Active Unknown Unknown Unknown 23.0123 7 Unknown 12/20/27 Unknown Unknown Active Unknown Unknown Unknown 23.0216 0 Unknown 03/21/28 Unknown Unknown Active Unknown Unknown Unknown 23.0361 2 Unknown 02/19/28 Unknown Unknown Active Unknown Unknown Unknown [id number] 221 Unknown 03/21/27 Unknown Unknown Active Unknown Unknown Unknown 23.0036 1 Unknown 07/20/27 Unknown Unknown Active Unknown Patient Care team information Care Team Personnel Name: CHERI Almanza Tara Position: Nurse Pract - Family Med Member Role: Lifetime Relationship Address: [address] [place] [address] [place] [employer]: [phone] Name: Shyla De La Garza Amy E Position: Pharmacist Member Role: Pharmacy - Lifetime Address: [address] [address] Name: Shyla Noriega Kimberly Position: Pharmacist BCMA Member Role: Pharmacy - Lifetime Address: [address] [address] Name: MD Kenneth, Prateek Position: Physician - Family Med Member Role: Primary Care Provider Address: [address] [address] [place] Telecom: [phone] Name: DO Parmar Sameer Position: Resident Member Role: Lifetime Relationship Address: [address] [address] [place] Telecom: [phone] Name: CHERI Posey Lynn S Position: Nurse Practitioner Member Role: Lifetime Relationship Address: [address] [place] [address] Telecom: [phone] Care Team Related Persons Name: FREDDY DOWNEY Name: FREDDY DOWNEY Insurance Providers Guarantor name: EDNA DOWNEY Health Plan Information #: 1 Payer: [employer] Member Number: [id number] Policy Number: NA Group Number: [id number] Health Plan Information #: 2 Payer: [employer] Member Number: [id number] Policy Number: NA Group Number: NA
--- OUTSIDE RECORDS SUMMARY | 2024-05-29 21:23 | External Medical Summary | Continuity of Care Document ---
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 lesion| Service Date: 10/12/2016Colonoscopy| Service Date: 10/02/2016[facility] surgery- closure RLL| ServiceDate: 09/02/2016[facility] micrographic surgery| Service Date: 09/02/2016Right Carpal tunnel release| Service Date: 08/26/2016Shave biopsy and cauterization of skin| Service Date: 08/11/2016[facility] surgery| Service Date: 07/08/2016Shave biopsy and cauterization of skin| Service Date: 06/03/2016Shave biopsy of skin| Service Date: 05/12/2016Injection| Service Date: 2016Shave biopsy of skin| Service Date: 01/13/2016Ultrasound scan of kidneys and bladder| Service Date: 12/12/2015Upper GI endoscopy| Service Date: 10/22/2015Shave biopsy of skin| Service Date: 09/26/2015Excision| Service Date: 09/25/2015Mammography| Service Date: 09/19/2015Excision| Service Date: 08/28/2015[facility] micrographic surgery| Service Date: 08/28/2015Carpal tunnel release and trigger finger release| Service Date: 08/07/2015Shave biopsy and cauterization of skin| Service Date: 06/21US kidneys| Service Date: 05/30/2015Cystoscopy- Removal of stent| Service Date: 04/24/2015Retrograde urogram| Service Date: 03/04/2015Cystoscopy| Service Date: 03/04/2015Retrograde includes KUB| Service Date: 02/19/2015Cystoscopy ,right retrograde pyelogram,right ureteroscopy, right ureteral stent| Service Date: 02/19/2015Mohs surgery| Service Date: 02/11/2015Shave biopsy| Service Date: 01/10/2015PAP test date| Service Date: 10/29/2014Upper GI endoscopy| Service Date: 10/23/2014MRI of pancreas| Service Date: 05/09/2014Fine needle aspiration of pancreas| Service Date: 02/01/2014Upper GI endoscopy| Service Date: 10/18/2013Extracapsular cataract removal with insertion of intraocular lens prosthesis (1 stage procedure), manual or mechanical technique (eg, irrigation and aspiration or phacoemulsification)| Service Date: 09/25/2013Mammography| Service Date: 09/14/2013Extracapsular cataract removal with insertion of intraocular lens prosthesis (1 stage procedure), manual or mechanical technique (eg, irrigation and aspiration or phacoemulsification)| Service Date: 09/11/2013Shave biopsy of skin| Service Date: 09/04/2013Shave biopsy and cauterization of skin| Service Date: 01/16/2013Mammogram| Service Date: 09/13/2012rightknee replaced| Service Date: 04/01/2012left TKA| Service Date: 2010lumbar laminectomy L3-L4 ,fusion with hardware-| Service Date: 2009colonoscopy| Service Date: 12/10/2008Endoscopic ultrasound examination of pancreas and biopsy of lesion of pancreas| Service Date: 09/28/2008left nephrectomy donation| Service Date: 08/30/1995lumbar laminectomy L4-L5| Service Date: BSO- Total abdominal hysterectomy and bilateral salpingo-oophorectomy| Service Date: thumbulnar alex. lig. repairright knee arthroscopyleft knee arthroscopyright tennis elbow repair tonsillar abscess I&D ED&C bowenoid [place] Shave biopsy of skin Mohs surgery Medications acetaminophen(Tylenol 500 mg oral tablet), 500 mg= 1 tab, PO, q6h, PRN aluminum hydroxide-magnesium carbonate(aluminum hydroxide-magnesium carbonate 254 mg-237.5 mg/5 mL oral suspension), 15 mL, PO, pc and hs, PRN, 10 refills betamethasone topical(betamethasone dipropionate 0.05% topical cream), 1 appl, topical, bid, 1 refills cetirizine(ZyrTEC 10 mg oral tablet), 10 mg= 1 tab, PO, Daily, PRN clobetasol topical(clobetasol 0.05% topical ointment), 1 appl, topical, bid docusate(Colace 50 mg oral capsule), 50 mg= 1 cap, PO, bid, PRN EPInephrine(EpiPen Auto-Injector 0.3 mg injectable kit), 0.3 mg, IM, ONCE, PRN, 2 refills furosemide(furosemide 20 mg oral tablet), 20 mg= 1 tab, PO, Daily levothyroxine(levothyroxine 50 mcg (0.05 mg) oral tablet), 50 mcg= 1 tab, PO, Daily, 3 refills losartan(losartan 50 mg oral tablet), 50 mg= 1 tab, PO, Daily magnesium citrate, PO, Daily multivitamin with minerals(PreserVision), 1 tab, PO, bid omeprazole(omeprazole 20 mg oral delayed release capsule), 20 mg= 1 cap, PO, bid, 4 refills ondansetron(ondansetron 4 mg oral tablet), 4 mg= 1 tab, PO, bid, PRN oxyCODONE(oxyCODONE 5 mg oral tablet), 1 tab, PO, Daily, PRN potassium citrate(potassium citrate 10 mEq oral tablet, extended release), 10 mEq= 1 tab, PO, Daily pravastatin(pravastatin 10 mg oral tablet), 10 mg= 1 tab, PO, qhs, 3 refills triamcinolone(Kenalog-40 injectable suspension), 16 mg= 0.4 mL, intralesional, ONCE turmeric, 1 tab, PO, Daily Allergies Bactrimrash Betadineblisters Catsnasal congestion Citrucelworse LLQ pain Cleocin VaginalCurrent - unspecified CymbaltaUrine retention and constipation DULoxetineexcess sleepiness, but did help Demerol HClpositive skin test Dogsnasal congestion Grassnasal congestion KeflexItching Metamucilworse LLQ pain Nucyntaunknown Nucynta ERnew pain, not safe to drive, loss of balance PCN (penicillin)rash Pepcidheadache Pollennasal congestion Procritsevere joint aches Proliaside effects per patient Tapeblisters Zantacheadache Zestrilcough alendronatesevere, progressive joint pains aspirinabd pain, nosebleed and subconjunctival hemarrhage bananasitchy swollen throat ciprofloxacinmouth sores clindamycinrash coconutRash famotidineunknown gabapentindizziness lansoprazoleabdominal pain melatonindaytime grogginess morphineswelling seedsrash tetracyclinerash Social History Smoking Status Former Smoker, quit > 1 yr Alcohol - No Risk Average drinks per episode in last year:1 Frequency:3-5 times per week Use:Current Type:Liquor - Comments: 1 shot in coffee Q AM 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- Exercise Duration (average number of minutes):30 Times per week:5-6 times/week Self assessment:Fair condition Exercise type:Walking, stationary biking Home/Environment Lives with:Spouse Living situation:Home/Independent Feels unsafe at home:No Sexual Sexually active:Yes Tobacco - Low Risk Use:Former smoker Type:Cigarettes Tobacco use per day:1 Started at age:18Years Stopped at age:52Years Intake (Mike) Smoking History Cigarette smoker: Former Smoker, quit > 1 yr Tobacco Product Use: Never used other tobacco products Total pack years: 5 If past smoker, what year did you quit: 1991 What was avg daily use when smoking: .50 (10 cigarettes) How many total years did you smoke: 10 Family History Asthma: Son. Melanoma: Brother (Dx at 58). Prostate cancer..: Brother. Renal cell adenocarcinoma: Brother. Health Status Family Member(s) Sister: History is negative Daughter: History is negative Daughter: History is negative Family Member(s) Relationship: Brother, Age: 89 Years, Cause: brain tumor, ? glioma, declined biopsy Relationship: Mother, Age: 94 Years, Cause: aspiration pneumonia, sec. to Alzheimers Relationship: Father, Age: 42 Years, Cause: pneumonia; smoker, hx. of mustard gas exposure, knitted cloth examiner Immunizations Vaccine Date Status RSV vaccine, preF A-preF B, recombinant 01/28/2024 Recorded RSV vaccine preF3, recombinant 01/28/2024 Recorded influenza virus vaccine, inactivated 01/14/2023 Recorded SARS-CoV-2 (COVID-19) mRNA-vacc - [id number] 12/29/2022 Recorded Comments : 2023-01-28: Historical information-source unspecified tetanus/diphtheria/pertuss, acel (Tdap) 05/13/2022 Given SARS-CoV-2 mRNA (Pfizer 12+) bivalent 02/09/2022 Recorded influenza virus vaccine, inactivated 11/25/2021 Recorded pneumococcal 20-valent conjugate vaccine 09/01/2021 Recorded Comments : 2023-01-28: Historical information-source unspecified influenza virus vaccine, inactivated 01/05/2021 Given SARS-CoV-2 (COVID-19) mRNA BNT-162b2 vax 11/20/2020 Recorded Comments : 2021-06-12: Historical information-source unspecified SARS-CoV-2 (COVID-19) mRNA BNT-162b2 vax 05/14/2020 Recorded Comments : 2020-07-13: Historical information-source unspecified SARS-CoV-2 (COVID-19) mRNA BNT-162b2 vax 04/23/2020 Recorded Comments : 2020-07-13: Historical information-source unspecified influenza virus vaccine, inactivated 12/29/2019 Given influenza virus vaccine, inactivated 12/29/2019 Given zoster vaccine, inactivated 08/18/2019 Recorded Comments : Given at [facility] zoster vaccine, inactivated 04/10/2019 Recorded influenza virus vaccine, inactivated 12/08/2018 Recorded influenza virus vaccine, inactivated 12/22/2017 Given influenza virus vaccine, inactivated 12/24/2016 Given influenza virus vaccine, inactivated 12/17/2015 Given influenza virus vaccine, inactivated 12/05/2014 Given pneumococcal 13-valent vaccine 01/04/2014 Given influenza virus vaccine, inactivated 01/04/2014 Given tetanus/diphtheria/pertuss, acel (Tdap) 02/21/2013 Recorded influenza virus vaccine, inactivated 12/12/2012 Given influenza virus vaccine, inactivated 12/11/2011 Given zoster vaccine live 08/27/2010 Recorded zoster vaccine live 08/20/2009 Recorded Comments : 2020-07-13: Historical information-source unspecified pneumococcal 23-valent vaccine 01/13/2006 Recorded tetanus toxoids-diphtheria, Td (Adult) 10/27/2004 Recorded Recommendations Health Maintenance Pending(in the next year) OverDue Medicare Annual Wellness Visit due06/12/22and every 1year Adult Influenza Vaccine due09/20/23and every 1year Due Adult Social Determinants of Health Screening due05/24/24Unknown Frequency Falls Plan of Care due05/24/24Unknown Frequency Seasonal COVID 19 Vaccine due05/24/24Unknown Frequency Satisfied(in the past 1 year) Satisfied Body Mass Index on05/24/24.Satisfied by HERBIE Fuentes Paul Breast Cancer Screening on10/12/23.Satisfied by DONELL Crawford Lynnae Lipid Screening on04/17/24.Satisfied by Contributor_system, [employer] Electronic Signature on File Electronically Reviewed/Signed by: Prateek Cooper MD Author Signature Dt/Tm:05/24/2024 01:31 PM Department of Family Medicine DJ Patient Care team information Care Team Personnel Name: CHERI Almanza Tara Position: Nurse Pract - Family Med Member Role: Lifetime Relationship Address: [address] [place] [address] Telecom: [phone] Name: Shyla De La Garza Amy E Position: Pharmacist Member Role: Pharmacy - Lifetime Address: [address] Name: Shyla Noriega Kimberly Position: Pharmacist BCMA Member Role: Pharmacy - Lifetime Address: [address] Name: MD Cooper Dongsheng Position: Physician - Family Med Member Role: Primary Care Provider Address: [address] [place] [address] [place] Telecom: [phone] Name: DO Parmar Sameer Position: Resident Member Role: Lifetime Relationship Address: [address] Telecom: [phone] Name: CHERI Posey Lynn S Position: Nurse Practitioner Member Role: Lifetime Relationship Address: [address] Telecom: [phone] Care Team Related Persons Name: FREDDY DOWNEY Name: FREDDY DOWNEY Insurance Providers Guarantor name: EDNA DOWNEY Health Plan Information #: 1 Payer: [employer] PPO Member Number: [id number] Policy Number: NA Group Number: [id number] Health Plan Information #: 2 Payer: [employer] PPO Member Number: [id number] Policy Number: NA Group Number: [id number]"
[2024-05-29] MEDS: PRAVASTATIN SOD 10 MG TAB PO SCH (21:51)
[2024-05-29] MEDS: PANTOprazole 40 MG TAB PO SCH (21:51)
[2024-05-29] MEDS: ONDANSETRON INJ 2 MG/ML 2 ML VIAL IV PRN (22:48)
[2024-05-30] MEDS: LEVOTHYROXINE SODIUM 50 MCG TABLET PO SCH (06:05)
[2024-05-30] MEDS: LOSARTAN POTASSIUM 50 MG TAB PO SCH (07:36)
[2024-05-30] MEDS: ENOXAPARIN INJ 30 MG/0.3 ML SYR SQ SCH (07:37)
[2024-05-30] MEDS: ACETAMINOPHEN 325 MG TAB PO PRN (07:40)
[2024-05-30 07:53] VITALS: RESP 16
[2024-05-30] MEDS: ceFAZolin 1000MG 1,000 MG/7.5 ML SYR IV SCH (08:01)
--- NOTE | 2024-05-30 09:47 | Hospitalist Progress Note ---
Date of Service May 30, 2024 Assessment & Plan (1) Cellulitis of right leg: (2) Non-healing wound of right lower extremity: (3) Hypertension: (4) Hypothyroid: (5) Hypercholesterolemia: Plan Patient is an 83 y/o f admitted for management of right LE cellulitis subsequent to open wound on said leg and failed outpatient oral therapy. Cellulitis - Likely related to open wound on right leg - Clarified abx hx; instead of Keflex, patient was given Clindamycin as the first abx used Will change abx to Ancef 2 gm Q8H; if good response, can switch to similar PO abx at time of discharge and may continue abx therapy for 7-14 days - MRSA swab negative - Wound care nurse consulted - Continue to monitor; if improvement noted tomorrow, may consider discharge back home tomorrow with PO abx Hypothyroidism - Continue home levothyroxine HTN - Continue home meds GERD - Continue PPI HLD - Continue statin Admission and Anticipated Discharge Date Admission Date: May 29, 2024 Supervising Physician Co-Signing Physician Notes I personally examined the patient and verified all leija points of history and exam, discussed case, and agree with decision making with Dr Akash loera less red area involved not really smaller yet medial thigh still painful walking well. Vitals noted, in general she is awake and alert pleasant no distress. HEENT normocephalic atraumatic mucous membranes moist. Right lower extremity has redness about the same in area but much more dull maroon/faded brown in color - skip tender but less so . She also has lymphangitic streaking up her medial right thigh - similar to yesterday skip tender. Breathing unlabored no accessory muscle use good effort. neuro with no focal deficits. Labs and diagnostics noted. Right lower extremity cellulitis/lymphangitis and sepsis (white count greater than 12, heart rate greater than 90) present on admissionafter further clarification - was on clinda then doxy. with no purulence likely strep - improving - got vanco and ceftriaxone yesterday doubt MRSA - ancef and follow - if ongoing improvement allows for easy transition to keflex DVT proph - renal dosed lovenox Subjective Still some pain, warmth, and redness in right LE. No longer having chills and no other systemic sxs. Has been having some lower back pain which she feels is related to her bed. No overnight events. Trying to walk around the room as much as she can. Review of Systems Review of Systems: As per HPI Physical Exam Physical Exam: GENERAL: AAOx4, afebrile, NAD HEAD: AT, NC EYES: EOM intact, ARY, non injected conjunctiva THROAT: normal to visual inspection CHEST: symmetric chest expansions with respirations CARDIO: RRR, no r/m/g PULMONARY: CTA b/l, normal respiratory effort, no respiratory distress GI: soft, non distended, non tender EXTREMITIES: unremarkable left LE without skin changes or calf tenderness, some improvement in right LE with erythema/warmth/tenderness but still present, also note an wound on the medial aspect of her right lower extremity covered by bandage that is c/d/i Results & Data Results & Data Vital Signs (Past 12 Hours) Vital Signs Temp Pulse Resp BP Pulse Ox O2 Del Method 05/30/24 07:52 36.6 C 89 16 117/67 96 Room Air 05/30/24 00:01 36.4 C L 104 H 18 160/81 H 97 Room Air 05/29/24 22:50 82 17 130/102 H 100 Room Air Resident Activity Tracking Resident Involvement: Resident Care Provided Care Provided: Adult Hospital Medicine (3) Hypertension Hypertension type: essential hypertension Qualified Code(s): I10 - Essential (primary) hypertension (4) Hypothyroid Hypothyroidism type: unspecified Qualified Code(s): E03.9 - Hypothyroidism, unspecified
[2024-05-30 10:49] LABS: Basophils # (auto) 0.02 K/uL (0.00-0.20); Basophils % (auto) 0.3 %; Eosinophils # (auto) 0.22 K/uL (0.00-0.50); Eosinophils % (auto) 2.8 %; Hematocrit (blood only) 37.1 % (37.0-47.0); Hemoglobin 12.2 g/dl (12.0-16.0); Immature Granulocytes # (auto) 0.03 K/uL (0.01-0.20); Immature Granulocytes % (auto) 0.4 %; Lymphocytes # (auto) 1.07 K/uL (1.20-3.40); Lymphocytes % (auto) 13.5 %; Mean Corpuscular Hemoglobin 29.6 pg (25.0-34.0); Mean Corpuscular Hgb Conc 32.9 g/dL (32.0-36.0); Mean Platelet Volume 12.3 fL (9.4-12.4); Monocytes # (auto) 0.41 K/uL (0.11-0.59); Monocytes % (auto) 5.2 %; Neutrophils # (auto) 6.15 K/uL (1.40-6.50); Neutrophils % (auto) 77.8 %; Platelet Count 138 K/uL (130-400); RDW Coefficient of Variation 14.8 % (11.5-14.5); Red Blood Count 4.12 M/uL (4.20-5.40)
[2024-05-30 11:03] LABS: BUN Creatinine Ratio 18.3 (10-20); Calcium 10.1 mg/dl (8.6-10.3); Creatinine Clr Calc Pharmacy 19.3 ml/min; Potassium 4.6 mmol/L (3.5-5.1)
[2024-05-30] MEDS: IBUPROFEN 600 MG TAB PO ONE (11:28)
[2024-05-30] MEDS: LIDOCAINE 5% 1 PATCH TD SCH (11:28)
[2024-05-30 15:02] VITALS: O2SAT 97
[2024-05-30] MEDS: ACETAMINOPHEN 500 MG TAB PO PRN (16:18)
[2024-05-30] MEDS ORDERED: cefTRIAXone SODIUM 2,000 MG/50 ML BAG IV SCH (17:00)
--- NOTE | 2024-05-30 19:13 | Billing Data ---
Date of Service May 30, 2024 Coding Level of Care Code 10459 SUB INP/OBS CARE MIN
[2024-05-31 07:34] VITALS: BP 135/82; PULSE 86; TEMP 98.1
[2024-05-31 08:13] LABS: Basophils # (auto) 0.02 K/uL (0.00-0.20); Basophils % (auto) 0.3 %; Eosinophils % (auto) 4.5 %; Hematocrit (blood only) 33.5 % (37.0-47.0); Hemoglobin 11.2 g/dl (12.0-16.0); Immature Granulocytes # (auto) 0.02 K/uL (0.01-0.20); Immature Granulocytes % (auto) 0.3 %; Lymphocytes # (auto) 1.55 K/uL (1.20-3.40); Lymphocytes % (auto) 23.4 %; Mean Corpuscular Hemoglobin 29.6 pg (25.0-34.0); Mean Corpuscular Hgb Conc 33.4 g/dL (32.0-36.0); Mean Corpuscular Volume 88.6 fL (80.0-100.0); Mean Platelet Volume 11.3 fL (9.4-12.4); Monocytes # (auto) 0.88 K/uL (0.11-0.59); Monocytes % (auto) 13.3 %; Neutrophils # (auto) 3.84 K/uL (1.40-6.50); Neutrophils % (auto) 58.2 %; Platelet Count 147 K/uL (130-400); RDW Coefficient of Variation 14.8 % (11.5-14.5); RDW Standard Deviation 47.6 fL (36.4-46.3); Red Blood Count 3.78 M/uL (4.20-5.40); White Blood Count 6.61 K/ul (4.8-10.8)
[2024-05-31 08:31] LABS: BUN Creatinine Ratio 19.3 (10-20); Calcium 9.5 mg/dl (8.6-10.3); Creatinine Clr Calc Pharmacy 18.6 ml/min; Potassium 4.3 mmol/L (3.5-5.1)
[2024-05-31] MEDS: cephALEXin 500 MG CAP PO SCH ×2 (09:07→12:30)
[2024-05-31] MEDS: oxyCODONE HCL IR 5 MG TAB (IMMEDIATE RELEASE) PO ONE (09:08)
--- NOTE | 2024-05-31 09:46 | Discharge Summary ---
Date of Service May 31, 2024 Admission HPI Per Admitting Provider Patient who comes to ED due to right LE swelling and redness. Patient states that 1 month ago, [place] and her [place] and [place], leading to a wound on the anterior-medial aspect of her right LE. She was managing her wound herself with ointments and gauze at home, but 1 week later she went to Urgent care. At that point she did not note any redness or swelling or tenderness, but wanted to ensure there wasn't anything else she would need to do. At this point she was give Keflex which she completed. On Wednesday (05/27/24), she noted the redness appearing for the first time as well as associated tenderness and warmth. She went to see her PCP who prescribed doxycycline which she was taking. She marked the redness in her leg with a pen herself at home and today noted that the redness was the same or was extended further. Also states her wound, which was drying up, may appear more humid today and has some discharge coming from it. She feels like she may have chills today but denies fevers, weakness, lightheadedness, syncope, chest pain, SOB, or any other associated sxs. ED Course: Given one time dose of Ceftriaxone and Vancomycin. Tylenol 1 gm IV x1. Labs/Imaging: CBC w/ leukocytosis of 12.36 with neutrophilic predominance, hgb of 12.7, and plat of 116. CMP with mild hyponatremia of 135, Cr of 1.5, LFTs unremarkable. Right venous doppler without DVT and showing mild right inguinal adenopathy (likely reactive). Medical History: [Reviewed] Medications: [Reviewed] Surgical History: [Reviewed] Family history: [Reviewed] Allergies: [Reviewed] Social History: [Reviewed] Code Status: FULL Admission Exam Per Admitting Provider GENERAL: AAOx4, afebrile, NAD HEAD: AT, NC EYES: EOM intact, ARY, non injected conjunctiva THROAT: normal to visual inspection CHEST: symmetric chest expansions with respirations CARDIO: RRR, no r/m/g PULMONARY: CTA b/l, normal respiratory effort, no respiratory distress GI: soft, non distended, non tender EXTREMITIES: unremarkable left LE without skin changes or calf tenderness, right LE with erythema/warmth/tenderness extending from ankle to under her knee and around to the posterior aspect of her leg, also note an open wound on the medial aspect of her right LE that extends from 1-2 cm under her knee to 1-2 cm above her ankle, slight yellowish thick discharge in some parts of it Principal Diagnosis Cellulitis Discharge Exam GENERAL: AAOx4, afebrile, NAD HEAD: AT, NC EYES: EOM intact, ARY, non injected conjunctiva THROAT: normal to visual inspection CHEST: symmetric chest expansions with respirations CARDIO: RRR, no r/m/g PULMONARY: CTA b/l, normal respiratory effort, no respiratory distress GI: soft, non distended, non tender EXTREMITIES: unremarkable left LE without skin changes or calf tenderness, some improvement in right LE with erythema/warmth/tenderness but still present, also note an wound on the medial aspect of her right lower extremity covered by bandage that is c/d/i Discharge Data Allergies Allergy/AdvReac Type Severity Reaction Status Date / Time banana Allergy Severe "ITCHY Verified 05/29/24 17:05 THROAT" povidone-iodine Allergy Severe BLISTERS Verified 05/29/24 17:05 cantaloupe Allergy Intermediate ITCHY Verified 05/29/24 17:05 THROAT coconut Allergy Intermediate Rash Verified 05/29/24 17:05 morphine Allergy Intermediate Swelling,VO Verified 05/29/24 17:05 MITING Penicillins Allergy Intermediate Rash Verified 05/29/24 17:05 (Tolerates Cephalosporins) sesame oil Allergy Intermediate Rash from Verified 05/29/24 17:05 sesame seeds Tetracyclines Allergy Intermediate Rash Verified 05/29/24 17:05 ciprofloxacin Allergy Unknown Unknown Verified 05/29/24 17:05 clindamycin Allergy Unknown RASH Verified 05/29/24 17:05 meperidine Allergy Unknown POS SKIN Verified 05/29/24 17:05 TEST sesame seed Allergy Rash Verified 05/29/24 17:05 adhesive AdvReac Severe BLISTERS Verified 05/29/24 17:05 aspirin AdvReac Intermediate Nosebleed/subconjunctival Verified 05/29/24 17:05 hemorrhage hydromorphone AdvReac Intermediate Vomiting Verified 05/29/24 17:05 ketorolac AdvReac Unknown d/t kidney Verified 05/29/24 17:05 issue NSAIDS (Non-Steroidal AdvReac Unknown d/t kidney Verified 05/29/24 17:05 Anti-Inflamma Consultations 05/29/24 17:48 ED Decision to Admit Stat Ordered Studies 05/29/24 15:00 US venous doppler LE RT Stat Hospital Course (1) Cellulitis of right leg: (2) Non-healing wound of right lower extremity: (3) Hypertension: (4) Hypothyroid: (5) Hypercholesterolemia: Plan Patient is an 83 y/o f admitted for management of right LE cellulitis subsequent to open wound on said leg and failed outpatient oral therapy. Cellulitis - Likely related to open wound on right leg - Given improvement with Ancef, will switch abx to Keflex 500 mg TID (adjusted for kidney function) Would culture growing Strep and rare Pseudomonas Given improvement with abx that don't have pseudomonal coverage as well as risk of tendon rupture with fluoroquinolones, will continue with Keflex and schedule patient with PCP office for close follow up on Wednesday (06/02/24) to assess progression. If suboptimal improvement, may consider other options for management that could provide pseudomonal coverage. - MRSA swab negative - Wound care nurse evaluated patient and reccs given for wound care at home; could be set up for wound care clinic - Will discharge back home today Hypothyroidism - Continue home levothyroxine HTN - Continue home meds GERD - Continue PPI HLD - Continue statin Total Time Total Time Spent Total Time Spent (In Minutes): <30 Discharge Plan Discharge Items Patient Disposition: Home - Self-Care Reason For Visit: RIGHT LEG SWELLING AND PAIN Discharge Diagnosis: Cellulitis Activity: Per Instructions section Non-emergency contact: Primary Care Provider Call non-emergency contact if: you have any medication questions and your symptoms worsen Follow-up/Referrals: Prateek Cooper [Primary Care Provider] - Diet: Regular Addtl Attending Provider Instructions: You were admitted with a cellulitis, skin infection of your leg. This infection likely came as a consequence of the wound that you have on your leg since this can act as a "doorway to bacteria" and thus lead to infection. We have been treating you with IV antibiotics and have seen some improvement of the infection. We are going to send you some on Keflex, an oral antibiotic to manage your infection, however, it would also be advisable to follow up with the wound clinic since they may continue to check on your wound while it continues to heal. We sent a script for Keflex 500 mg, which you should take by mouth every 8 hours. You can start this at 5 pm today, and continue taking this as advised for 12 more days to complete 14 days of therapy in total. A discharge summary will be sent to your primary care physician to ensure continuity of care. Please bring this discharge summary with you to your next office appointment so that your provider can review it at that time. We have set up an appointment with Dr. Rojas in the [facility] for your post-discharge follow up. This appointment is scheduled for 06/06/2024 at 9:45 am. Medications: Your medication list has been reviewed and reconciled upon discharge to ensure accuracy and continuity of care. An updated list of all your medications is included with your hospital discharge paperwork. Please review this list closely, and make note of any changes. CONTACT YOUR PRIMARY CARE PROVIDER if you experience any of the following: Worsening of symptoms Fever, chills, or fatigue Difficulty following your treatment plan, or difficulty taking medications CALL 911 OR GO TO THE EMERGENCY DEPARTMENT if you experience any of the following: Sudden, severe abdominal pain or nausea/vomiting Severe chest pain, or chest pain that radiates (moves) to your jaw or arm Sudden, severe shortness of breath or difficulty breathing Thank you for allowing us to participate in your care. Pending Studies at Discharge: No Stand-Alone Forms: My [facility], Smoking Cessation Medications and DC Order Prescriptions: New cephalexin 500 mg Capsule 500 mg PO TID 13 Days Qty: 39 0RF Continued (DME) BD Safety-Yvon Detachable Needl 3 mL 25 gauge x 5/8" syringe See Dose Instructions .ROUTE .MEDSUPPLY Qty: 10 2RF Dose Instruction: As directed Rx Instructions: Every other week with Aranesp injection (DME) BD Integra Syringe 3 mL 25 gauge x 1" syringe See Dose Instructions .ROUTE .MEDSUPPLY Qty: 3 4RF Dose Instruction: As directed Rx Instructions: Once monthly with B12 injection levothyroxine 50 mcg capsule 50 mcg PO QAM epinephrine 0.3 mg/0.3 mL auto-injector 0.3 mg IM ONCE PRN (Reason: Allergic Reaction) Rx Instructions: Pt states this is , will need a new script omeprazole 20 mg capsule,delayed release(DR/EC) 20 mg PO BID cyanocobalamin (vitamin B-12) 1,000 mcg/mL solution 1,000 mcg IM MONTHLY Qty: 3 3RF potassium citrate 99 mg capsule 99 mg PO QAM PreserVision AREDS-2 [id number] Capsule 1 tab PO BID multivitamin Tablet 1 tab PO QAM pravastatin 10 mg tablet 10 mg PO HS furosemide 20 mg tablet 20 mg PO QAM PRN (Reason: Edema) clobetasol 0.05 % ointment 1 applic TOPICAL BID PRN (Reason: Arm/Leg Rash) oxycodone 5 mg tablet 5 mg PO DAILY PRN (Reason: Wound Pain) losartan 50 mg tablet 50 mg PO QAM Aranesp (in polysorbate) 200 mcg/mL solution 200 mcg subcut Q14D PRN (Reason: HGB Below 12) Rx Instructions: 200 mcg subcut Q 2 weeks PRN HGB BELOW 12; turmeric 400 mg Capsule 400 mg PO QAM Discontinued doxycycline hyclate 100 mg capsule 100 mg PO BID 7 Days Qty: 14 0RF Rx Instructions: Start Date 05/28/24 x7 day supply Discharge Orders: Discharge Order (Routine); Ordered 05/31/24 Ordered By: Shavon Villarreal/Other Patient Handouts: Wound Care Admission Data Admit Date/Time: 05/29/24 17:50 Attending Provider: Tomi Rodriguez Admit Provider: Shavon Bustos Primary Care Provider: Prateek Cooper Other Providers: Tomi Rodriguez Other Interventions: Discharge Summary Assessment (RN) Last Done: 05/31/24 13:48 Supervising Physician Co-Signing Physician Notes I personally examined the patient and verified all leija points of history and exam, discussed case, and agree with decision making with Dr Bustos overall leg doing better and she's feeling better // feeling up to going home. Vitals noted, in general she is awake and alert pleasant no distress. HEENT normocephalic atraumatic mucous membranes moist. Right lower extremity faded dramatically and regressed - mostly all mid hernadez and distal now - and dull maroon/brown. lymphangitic streaking medial thigh barely visible and much less tender. Breathing unlabored no accessory muscle use good effort. neuro with no focal deficits. Labs and diagnostics noted. Right lower extremity cellulitis/lymphangitis and sepsis (white count greater than 12, heart rate greater than 90) present on admissionafter further clarification - improving nicely - safe/stable for home. improved with treatment for strep. previously on clinda and doxy. wound cultures noted - but strongly suspect pseudomonas as a contaminant (an odd contaminant, but a contaminant nonetheless) given that she clearly showed improvement over the last 48hrs, and while she was on multiple abx during her course, none would have covered for pseudomonas. (further, given her clinda/doxy/rocephin/vanco/ancef-> keflex over the course of this infection, treating with a quinolone to cover for pseudomonas that's highly unlikely to have been a culprit would raise very real risks for Cdiff and for a very active 83yo the tendon rupture risk would be potentially catastrophic). close PCP f/u set up - to be seen wednesday then again wednesday - if anything not getting better abx can be adjusted. DVT proph - renal dosed lovenox Resident Activity Tracking Resident Involvement: Resident Care Provided Care Provided: Adult Hospital Medicine
--- NOTE | 2024-05-31 19:15 | Billing Data ---
Date of Service May 31, 2024 Coding Level of Care Code 40615 IN/OBS DISCH 30 MIN/LESS
== END 2024-05-31 14:45 | disposition home or self-care (01) | DRG 872 ==
LOC: ED 14:21 → EDINP 17:50 → 3N 20:51